=== PATIENT | female | born 1940 | race Caucasian/White ===

== ENCOUNTER → 2016-08-04 | Outpatient (CLI) | payer MEDICARE, BC, OTHER ==
[~2016-08-04] MED LIST: ALLO100T PO; ASPI81TA85 PO; CALCTAB PO; CELL500T PO; DRIS50002 PO; FLEEENE4 PR; LIAL1.2T PO; LIPI20TA PO; LISI-542 PO; MAGN400C PO; MIRA3350 PO; MULTCAP PO; PLAV75TA38 PO; SENO8.6T2 PO; TRAZ100T4 PO; TYLE325T5 PO; VICO7.5T11 PO; VICODIN PO; VIST25CA PO; ZYLO300T4 PO; [UNRECOGNIZED DRUG - CODE] IV
--- NOTE | 2016-08-04 13:40 | REP ---
DIGITAL DIAGNOSTIC UNILATERAL RIGHT BREAST MAMMOGRAM AND FOCUSED RIGHT BREAST SONOGRAPHY: HISTORY: 6-month followup abnormalities on the right side. History of trauma to the breast. Comparison sonography and mammography is from January 09, 2016 and January 02 2016. MAMMOGRAPHIC FINDINGS: The two nodular opacities seen on January 01 and January 09, 2016 prior mammography has resolved. There is a needle biopsy marker clip again noted projecting in the upper outer quadrant on the right. Scattered fibroglandular elements are seen. No neodensity is seen. No spiculation architectural distortion or microcalcification is seen SONOGRAPHIC FINDINGS: The right breast is re-examined sonographically from 9 o'clock position to 1 o'clock position. A few prominent ducts are seen. No suspicious sonographic finding is observed. No cyst or mass is observed. IMPRESSION: BIRADS category 2 benign right breast imaging. Repeat bilateral screening mammography recommended in January 2017. BI-RADS/ACR category 2 mammogram. Benign finding(s). Routine annual screening mammography (for women over age 40). This mammogram was interpreted with the aid of an FDA-approved computer-aided detection system. The patient states she/he had a clinical breast exam in 6 months ago. The patient letter being requested is M2. Signed by Bogdan Epps MD 08/04/2016 03:31 P
== END ==
LOC: M RAD 09:54
PROVIDERS: ATTEND Family Medicine
DX: R92.1 Mammographic calcification found on diagnostic imaging of breast (principal); Z98.890 Other specified postprocedural states
CPT/HCPCS: 76642; G0206

== ENCOUNTER → 2016-08-29 | Outpatient (REF) | payer MEDICARE, OTHER ==
[2016-08-29 11:32] LABS: MEAN CORPUSCULAR HEMOGLOBIN 33.5 pg (27.0-33.0); MEAN CORPUSCULAR HGB CONC 32.2 g/dl (32.0-36.5); RED CELL DISTRIBUTION WIDTH 12.7 % (11.5-14.5); WHITE BLOOD COUNT 5.3 K/mm3 (4.0-10.0)
[2016-08-29 11:52] LABS: EOSINOPHILS 3 % (0-5)
[2016-08-29 11:55] LABS: PLATELET CLUMPS MODERATE AMT
[2016-08-29 12:26] LABS: ALBUMIN/GLOBULIN RATIO 1.48 (1.00-1.93); BILIRUBIN,TOTAL 0.8 MG/DL (0.2-1.0); CALCIUM LEVEL 9.9 MG/DL (8.8-10.2); CREATININE FOR GFR 1.57 MG/DL (0.55-1.02); FREE T4 0.97 NG/DL (0.76-1.46); GLOMERULAR FILTRATION RATE 34.1 (>39); MAGNESIUM LEVEL 1.8 MG/DL (1.8-2.4); POTASSIUM SERUM 3.6 MEQ/L (3.5-5.1); TOTAL PROTEIN 6.7 GM/DL (6.4-8.2); URIC ACID 5.3 MG/DL (2.6-6.0)
== END | disposition home or self-care (01) ==
LOC: M SFHCPLAZ 09:23
PROVIDERS: ATTEND Family Medicine
DX: N18.3 Chronic kidney disease, stage 3 (moderate) (principal); E78.5 Hyperlipidemia, unspecified

== ENCOUNTER → 2017-01-15 | Outpatient (REF) | payer MEDICARE, BC, OTHER ==
[~2017-01-15] MED LIST changes: +PLAV1TAB2 PO; -PLAV75TA38 PO; -SENO8.6T2 PO; +SENO8.6T5 PO; +TRAZ-136 PO; -TRAZ100T4 PO
[2017-01-15 12:43] LABS: CHOLESTEROL LEVEL 140 MG/DL (<200); FREE T4 1.16 NG/DL (0.76-1.46); TRIGLYCERIDES LEVEL 172 MG/DL (<150)
== END ==
LOC: M SFHCPLAZ 08:28
PROVIDERS: ATTEND Family Medicine
DX: E78.5 Hyperlipidemia, unspecified (principal); R73.01 Impaired fasting glucose; E55.9 Vitamin D deficiency, unspecified
CPT/HCPCS: 36415; 80061; 82306; 82550; 83036; 83970; 84439; 84443; 86140; G0463

== ENCOUNTER → 2017-05-15 | Outpatient (REF) | payer MEDICARE, OTHER ==
[2017-05-15 17:50] LABS: ALBUMIN 3.8 GM/DL (3.2-5.2); ALBUMIN/GLOBULIN RATIO 1.15 (1.00-1.93); BILIRUBIN,TOTAL 0.7 MG/DL (0.2-1.0); CALCIUM LEVEL 10.2 MG/DL (8.8-10.2); CREATININE FOR GFR 1.75 MG/DL (0.55-1.02); GLOMERULAR FILTRATION RATE 30.1 (>39); POTASSIUM SERUM 3.3 MEQ/L (3.5-5.1); TOTAL PROTEIN 7.1 GM/DL (6.4-8.2)
[2017-05-19 10:15] LABS: PRETREATED FOLATE FOR RBCFOL > 24.0 NG/ML
== END ==
LOC: M SFHCPLAZ 12:19
PROVIDERS: ATTEND Family Medicine
DX: N18.3 Chronic kidney disease, stage 3 (moderate) (principal); R73.01 Impaired fasting glucose; I50.30 Unspecified diastolic (congestive) heart failure; Z23 Encounter for immunization
CPT/HCPCS: 36415; 80053; 82306; 82607; 82747; 83036; 83735; 83880; 83970; 90662; G0463

== ENCOUNTER → 2017-09-21 | Outpatient (REF) | payer MEDICARE, OTHER ==
[2017-09-21 11:17] LABS: BASO % 0.4 % (0.0-1.0); EOS # 0.1 10^3/uL (0.0-0.50); EOS % 1.6 % (0.0-3.0); HEMATOCRIT 41.3 % (36.0-47.0); HEMOGLOBIN 12.8 g/dl (12.0-16.0); IMMATURE GRANULOCYTE % 0.3 % (0-3.0); LYMPH # 1.1 10^3/uL (1.5-4.5); LYMPH % 14.9 % (24.0-44.0); MEAN CORPUSCULAR HEMOGLOBIN 31.2 pg (27.0-33.0); MEAN CORPUSCULAR VOLUME 100.7 fl (80.0-96.0); MONO # 0.5 10^3/uL (0.0-0.8); MONO % 6.2 % (0.0-5.0); NEUTROPHILS # 5.7 10^3/uL (1.8-7.7); NEUTROPHILS % 76.6 % (36.0-66.0); PLATELET COUNT, AUTOMATED 151 10^3/uL (150-450); WHITE BLOOD COUNT 7.4 10^3/uL (4.0-10.0)
[2017-09-21 11:41] LABS: ALBUMIN 3.9 GM/DL (3.2-5.2); ALBUMIN/GLOBULIN RATIO 1.08 (1.00-1.93); ALKALINE PHOSPHATASE 95 U/L (45-117); ALT/SGPT 21 U/L (12-78); ANION GAP 5 MEQ/L (8-16); AST/SGOT 22 U/L (7-37); BILIRUBIN,TOTAL 0.6 MG/DL (0.2-1.0); BLOOD UREA NITROGEN 31 MG/DL (7-18); CALCIUM LEVEL 9.4 MG/DL (8.8-10.2); CARBON DIOXIDE LEVEL 39 MEQ/L (21-32); CHLORIDE LEVEL 96 MEQ/L (98-107); CREATININE FOR GFR 1.76 MG/DL (0.55-1.30); FERRITIN 180 NG/ML (8-252); FREE T4 0.92 NG/DL (0.76-1.46); GLOMERULAR FILTRATION RATE 29.8 (>39); GLUCOSE, FASTING 145 MG/DL (70-100); IRON (FE) 48 UG/DL (50-170); MAGNESIUM LEVEL 2.1 MG/DL (1.8-2.4); PERCENT SATURATION 17.5 % (13.2-45.0); POTASSIUM SERUM 3.7 MEQ/L (3.5-5.1); SODIUM LEVEL 140 MEQ/L (136-145); TOTAL IRON BINDING CAPACITY 274 UG/DL (250-450); TOTAL PROTEIN 7.5 GM/DL (6.4-8.2); URIC ACID 5.8 MG/DL (2.6-6.0)
[2017-09-21 12:13] LABS: PTH INTACT 78.4 PG/ML (18.5-88.0)
[2017-09-21 12:20] LABS: TOTAL 25(OH) VITAMIN D 47.5 NG/ML (30.0-100.0)
== END ==
LOC: M SFHCPLAZ 09:06
DX: N18.3 Chronic kidney disease, stage 3 (moderate) (principal); E78.5 Hyperlipidemia, unspecified; E55.9 Vitamin D deficiency, unspecified; M1A.09X0 Idiopathic chronic gout, multiple sites, without tophus (tophi); Z79.899 Other long term (current) drug therapy
CPT/HCPCS: 83550

== ENCOUNTER → 2018-01-19 | Outpatient (REF) | payer MEDICARE, OTHER ==
[2018-01-19 11:15] LABS: BASO % 0.5 % (0.0-1.0); EOS # 0.3 10^3/uL (0.0-0.50); EOS % 4.2 % (0.0-3.0); HEMATOCRIT 41.2 % (36.0-47.0); HEMOGLOBIN 12.7 g/dl (12.0-15.5); IMMATURE GRANULOCYTE % 0.2 % (0-3.0); LYMPH # 1.4 10^3/uL (1.5-4.5); LYMPH % 21.8 % (24.0-44.0); MEAN CORPUSCULAR HEMOGLOBIN 31.1 pg (27.0-33.0); MEAN CORPUSCULAR HGB CONC 30.8 g/dl (32.0-36.5); MEAN CORPUSCULAR VOLUME 100.7 fl (80.0-96.0); MONO # 0.6 10^3/uL (0.0-0.8); MONO % 8.6 % (0.0-5.0); NEUTROPHILS # 4.1 10^3/uL (1.8-7.7); NEUTROPHILS % 64.7 % (36.0-66.0); PLATELET COUNT, AUTOMATED 171 10^3/uL (150-450); RED BLOOD COUNT 4.09 10^6/uL (4.00-5.40); RED CELL DISTRIBUTION WIDTH 16.1 % (11.5-14.5); WHITE BLOOD COUNT 6.4 10^3/uL (4.0-10.0)
[2018-01-19 11:56] LABS: ALBUMIN 3.6 GM/DL (3.2-5.2); ALKALINE PHOSPHATASE 83 U/L (45-117); ALT/SGPT 19 U/L (12-78); ANION GAP 10 MEQ/L (8-16); AST/SGOT 13 U/L (7-37); BILIRUBIN,TOTAL 0.8 MG/DL (0.2-1.0); BLOOD UREA NITROGEN 27 MG/DL (7-18); CALCIUM LEVEL 8.8 MG/DL (8.8-10.2); CARBON DIOXIDE LEVEL 35 MEQ/L (21-32); CHLORIDE LEVEL 96 MEQ/L (98-107); CREATININE FOR GFR 1.96 MG/DL (0.55-1.30); FREE T4 1.03 NG/DL (0.76-1.46); GLOMERULAR FILTRATION RATE 26.3 (>39); GLUCOSE, FASTING 92 MG/DL (70-100); POTASSIUM SERUM 3.7 MEQ/L (3.5-5.1); SODIUM LEVEL 141 MEQ/L (136-145); TOTAL PROTEIN 7.2 GM/DL (6.4-8.2)
[2018-01-20 11:11] LABS: THYROID PEROXIDASE ANTIBODY < 28.0 U/ML (<60.0)
[2018-01-21 11:53] LABS: ALBUMIN 3.84 GM/DL (3.29-5.55); ALBUMIN % 53.4 % (55.8-66.1); ALPHA-1-GLOBULIN % 6.1 % (2.9-4.9); ALPHA-1-GLOBULINS 0.44 GM/DL (0.17-0.41); ALPHA-2-GLOBULINS 1.05 GM/DL (0.42-0.99); ALPHA-2-GLOBULINS % 14.6 % (7.1-11.8); BETA-1-GLOBULINS % 5.6 % (4.7-7.2); BETA-2-GLOBULINS 0.42 GM/DL (0.19-0.55); BETA-2-GLOBULINS % 5.8 % (3.2-6.5); GAMMA GLOBULIN % 14.5 % (11.1-18.8); GAMMA GLOBULINS 1.04 GM/DL (0.65-1.58)
== END ==
LOC: M SFHCCLAY 08:11
DX: N18.3 Chronic kidney disease, stage 3 (moderate) (principal); E03.9 Hypothyroidism, unspecified; D75.89 Other specified diseases of blood and blood-forming organs
CPT/HCPCS: 84165

== ENCOUNTER → 2018-01-26 | Outpatient (REF) | payer MEDICARE, OTHER ==
[2018-01-26 17:14] LABS: C REACTIVE PROTEIN QUANTITATIV 0.96 MG/DL (0.00-0.30)
[2018-01-26 18:07] LABS: ERYTHROCYTE SEDIMENTATION RATE 11 mm/hr (0-30)
[2018-01-27 11:35] LABS: HEPATITIS B SURFACE ANTIGEN NEGATIVE (NEGATIVE)
[2018-01-27 11:52] LABS: HEPATITIS C VIRUS ABY INDEX 0.1 INDEX (<0.8)
[2018-01-28 14:44] LABS: QUANTIFERON GOLD TB Negative (Negative); TB Test (QFT) Antigen 0.06 IU/mL (.); TB Test (QFT) Antigen Minus Ni 0.02 IU/mL (.); TB Test (QFT) Mitogen 7.85 IU/mL (.); TB Test (QFT) Nil 0.04 IU/mL (.)
== END ==
LOC: M SFHCPLAZ 09:45
DX: M06.9 Rheumatoid arthritis, unspecified (principal)
CPT/HCPCS: 87340

== ENCOUNTER → 2018-03-04 | Outpatient (REF) | payer MEDICARE, OTHER ==
[2018-03-04 12:25] LABS: BASO % 0.6 % (0.0-1.0); EOS # 0.2 10^3/uL (0.0-0.50); EOS % 3.2 % (0.0-3.0); HEMATOCRIT 45.1 % (36.0-47.0); HEMOGLOBIN 13.9 g/dl (12.0-15.5); IMMATURE GRANULOCYTE % 0.3 % (0-3.0); LYMPH # 1.6 10^3/uL (1.5-4.5); MEAN CORPUSCULAR HEMOGLOBIN 30.3 pg (27.0-33.0); MEAN CORPUSCULAR HGB CONC 30.8 g/dl (32.0-36.5); MEAN CORPUSCULAR VOLUME 98.5 fl (80.0-96.0); MONO # 0.4 10^3/uL (0.0-0.8); MONO % 6.8 % (0.0-5.0); NEUTROPHILS # 3.9 10^3/uL (1.8-7.7); NEUTROPHILS % 63.1 % (36.0-66.0); PLATELET COUNT, AUTOMATED 103 10^3/uL (150-450); RED BLOOD COUNT 4.58 10^6/uL (4.00-5.40); RED CELL DISTRIBUTION WIDTH 15.2 % (11.5-14.5); RETIC HEMOGLOBIN EQUIVALENT 36.6 pg (24-36); RETICULOCYTE # 47.2 10^9/L (17-77); WHITE BLOOD COUNT 6.2 10^3/uL (4.0-10.0)
[2018-03-04 12:55] LABS: ALBUMIN 3.9 GM/DL (3.2-5.2); ANION GAP 10 MEQ/L (8-16); BLOOD UREA NITROGEN 28 MG/DL (7-18); C REACTIVE PROTEIN QUANTITATIV < 0.30 MG/DL (0.00-0.30); CALCIUM LEVEL 9.5 MG/DL (8.8-10.2); CARBON DIOXIDE LEVEL 28 MEQ/L (21-32); CHLORIDE LEVEL 102 MEQ/L (98-107); CREATININE FOR GFR 1.69 MG/DL (0.55-1.30); FREE T4 0.94 NG/DL (0.76-1.46); GLOMERULAR FILTRATION RATE 31.2 (>39); GLUCOSE, FASTING 89 MG/DL (70-100); MAGNESIUM LEVEL 1.9 MG/DL (1.8-2.4); PHOSPHORUS LEVEL 3.4 MG/DL (2.5-4.9); SODIUM LEVEL 140 MEQ/L (136-145)
[2018-03-04 13:19] LABS: POTASSIUM SERUM 5.2 MEQ/L (3.5-5.1)
[2018-03-04 13:44] LABS: ERYTHROCYTE SEDIMENTATION RATE 7 mm/hr (0-30)
== END ==
LOC: M SFHCCLAY 09:46
DX: M06.9 Rheumatoid arthritis, unspecified (principal)
CPT/HCPCS: 83735

== ENCOUNTER → 2018-04-07 | Outpatient (REF) | payer MEDICARE, OTHER ==
[2018-04-07 11:42] LABS: BASO % 0.3 % (0.0-1.0); EOS # 0.2 10^3/uL (0.0-0.50); EOS % 2.6 % (0.0-3.0); HEMATOCRIT 43.4 % (36.0-47.0); HEMOGLOBIN 13.4 g/dl (12.0-15.5); IMMATURE GRANULOCYTE % 0.3 % (0-3.0); LYMPH # 2.3 10^3/uL (1.5-4.5); LYMPH % 30.8 % (24.0-44.0); MEAN CORPUSCULAR HEMOGLOBIN 31.5 pg (27.0-33.0); MEAN CORPUSCULAR HGB CONC 30.9 g/dl (32.0-36.5); MEAN CORPUSCULAR VOLUME 101.9 fl (80.0-96.0); MONO # 0.6 10^3/uL (0.0-0.8); MONO % 7.5 % (0.0-5.0); NEUTROPHILS # 4.3 10^3/uL (1.8-7.7); NEUTROPHILS % 58.5 % (36.0-66.0); PLATELET COUNT, AUTOMATED 145 10^3/uL (150-450); RED BLOOD COUNT 4.26 10^6/uL (4.00-5.40); RED CELL DISTRIBUTION WIDTH 15.8 % (11.5-14.5); WHITE BLOOD COUNT 7.4 10^3/uL (4.0-10.0)
[2018-04-07 12:03] LABS: ALBUMIN 3.8 GM/DL (3.2-5.2); ANION GAP 6 MEQ/L (8-16); BLOOD UREA NITROGEN 29 MG/DL (7-18); C REACTIVE PROTEIN QUANTITATIV < 0.30 MG/DL (0.00-0.30); CALCIUM LEVEL 9.4 MG/DL (8.8-10.2); CARBON DIOXIDE LEVEL 34 MEQ/L (21-32); CHLORIDE LEVEL 99 MEQ/L (98-107); CHOLESTEROL LEVEL 166 MG/DL (<200); CHOLESTEROL RISK RATIO 3.608 (<5); CREATININE FOR GFR 1.81 MG/DL (0.55-1.30); GLOMERULAR FILTRATION RATE 28.9 (>39); GLUCOSE, FASTING 81 MG/DL (70-100); HDL CHOLESTEROL 46 MG/DL (>40); LDL CHOLESTEROL 82 MG/DL (<100); MAGNESIUM LEVEL 2.3 MG/DL (1.8-2.4); NON-HDL-C 120 MG/DL; PHOSPHORUS LEVEL 3.9 MG/DL (2.5-4.9); POTASSIUM SERUM 4.2 MEQ/L (3.5-5.1); SODIUM LEVEL 139 MEQ/L (136-145); TRIGLYCERIDES LEVEL 188 MG/DL (<150)
[2018-04-07 12:10] LABS: ERYTHROCYTE SEDIMENTATION RATE 9 mm/hr (0-30)
[2018-04-07 16:45] LABS: ESTIMATED AVERAGE GLUCOSE 117 MG/DL (60-110); HEMOGLOBIN A1c 5.7 %
== END ==
LOC: M SFHCCLAY 09:31
DX: D69.6 Thrombocytopenia, unspecified (principal); E78.5 Hyperlipidemia, unspecified; R73.01 Impaired fasting glucose; I50.30 Unspecified diastolic (congestive) heart failure
CPT/HCPCS: 83735

== ENCOUNTER → 2018-06-07 | Outpatient (REF) | payer MEDICARE, OTHER ==
[2018-06-07 11:52] LABS: BASO % 0.1 % (0.0-1.0); EOS # 0.1 10^3/uL (0.0-0.50); EOS % 1.6 % (0.0-3.0); HEMATOCRIT 44.2 % (36.0-47.0); HEMOGLOBIN 13.4 g/dl (12.0-15.5); IMMATURE GRANULOCYTE % 0.3 % (0-3.0); LYMPH # 1.6 10^3/uL (1.5-4.5); LYMPH % 22.5 % (24.0-44.0); MEAN CORPUSCULAR HEMOGLOBIN 32.7 pg (27.0-33.0); MEAN CORPUSCULAR HGB CONC 30.3 g/dl (32.0-36.5); MEAN CORPUSCULAR VOLUME 107.8 fl (80.0-96.0); MONO # 0.6 10^3/uL (0.0-0.8); MONO % 7.8 % (0.0-5.0); NEUTROPHILS # 4.8 10^3/uL (1.8-7.7); NEUTROPHILS % 67.7 % (36.0-66.0); PLATELET COUNT, AUTOMATED 148 10^3/uL (150-450); RED CELL DISTRIBUTION WIDTH 13.9 % (11.5-14.5); WHITE BLOOD COUNT 7.1 10^3/uL (4.0-10.0)
[2018-06-07 12:38] LABS: ALBUMIN 3.8 GM/DL (3.2-5.2); ALBUMIN/GLOBULIN RATIO 1.19 (1.00-1.93); ALKALINE PHOSPHATASE 84 U/L (45-117); ALT/SGPT 32 U/L (12-78); ANION GAP 10 MEQ/L (8-16); AST/SGOT 27 U/L (7-37); BILIRUBIN,TOTAL 0.8 MG/DL (0.2-1.0); BLOOD UREA NITROGEN 34 MG/DL (7-18); C REACTIVE PROTEIN QUANTITATIV < 0.30 MG/DL (0.00-0.30); CALCIUM LEVEL 9.8 MG/DL (8.8-10.2); CARBON DIOXIDE LEVEL 33 MEQ/L (21-32); CHLORIDE LEVEL 95 MEQ/L (98-107); CREATININE FOR GFR 1.88 MG/DL (0.55-1.30); FREE T4 0.97 NG/DL (0.76-1.46); GLOMERULAR FILTRATION RATE 27.6 (>39); GLUCOSE, FASTING 95 MG/DL (70-100); POTASSIUM SERUM 3.7 MEQ/L (3.5-5.1); SODIUM LEVEL 138 MEQ/L (136-145)
== END ==
LOC: M SFHCCLAY 09:08
DX: D75.89 Other specified diseases of blood and blood-forming organs (principal); N18.3 Chronic kidney disease, stage 3 (moderate); M06.9 Rheumatoid arthritis, unspecified; E03.9 Hypothyroidism, unspecified; M1A.09X0 Idiopathic chronic gout, multiple sites, without tophus (tophi)
CPT/HCPCS: 84443

== ENCOUNTER 2018-09-14 09:27 | Inpatient (IN) | payer MEDICARE, BC, OTHER ==
[~2018-09-14] VITALS: Ht 157.5 cm; Wt 73.0 kg
[~2018-09-14 09:27] MED LIST changes: -DRIS50002 PO; +DRIS50003 PO; -TRAZ-136 PO; +TRAZ-163 PO; -ZYLO300T4 PO; +ZYLO300T6 PO
[2018-09-14] MEDS ORDERED: OXYC1TAB23 PO (09:46)
[2018-09-14] MEDS ORDERED: FURO40TA2 PO (09:46)
--- NOTE | 2018-09-14 10:15 | REP ---
Clinical: Altered mental status. Technique: Portable chest x-ray. Comparison: 12/01/2014. Findings: Mediastinum and cardiac silhouette are within normal limits and stable. Lung hanley demonstrate chronic changes. Trace basilar atelectasis cannot be excluded. No definite effusion. No pneumothorax. Skeletal structures demonstrate age-related degenerative changes. Surgical clips overlie the neck and right lung apex. Impression: Chronic changes. Cannot exclude bibasilar atelectasis versus chronic change. Electronically Signed by Lucio Fagan MD 09/14/2018 10:06 A
[2018-09-14 11:52] LABS: BASO % 0.6 % (0.0-1.0); EOS # 0.1 10^3/uL (0.0-0.50); EOS % 1.7 % (0.0-3.0); HEMATOCRIT 39.2 % (36.0-47.0); HEMOGLOBIN 11.9 g/dl (12.0-15.5); LYMPH % 21.3 % (24.0-44.0); MEAN CORPUSCULAR HEMOGLOBIN 32.7 pg (27.0-33.0); MEAN CORPUSCULAR HGB CONC 30.4 g/dl (32.0-36.5); MEAN CORPUSCULAR VOLUME 107.7 fl (80.0-96.0); MONO # 0.4 10^3/uL (0.0-0.8); MONO % 7.7 % (0.0-5.0); NEUTROPHILS # 3.3 10^3/uL (1.8-7.7); NEUTROPHILS % 68.3 % (36.0-66.0); PLATELET COUNT, AUTOMATED 164 10^3/uL (150-450); RED BLOOD COUNT 3.64 10^6/uL (4.00-5.40); WHITE BLOOD COUNT 4.8 10^3/uL (4.0-10.0)
[2018-09-14 12:30] LABS: PTH INTACT 61.7 PG/ML (18.5-88.0); TOTAL 25(OH) VITAMIN D 83.8 NG/ML (30.0-100.0)
[2018-09-14 12:34] LABS: ALBUMIN 4.1 GM/DL (3.2-5.2); ALT/SGPT 44 U/L (12-78); BILIRUBIN,DIRECT 0.2 MG/DL (0.0-0.2); BILIRUBIN,TOTAL 0.6 MG/DL (0.2-1.0); BLOOD UREA NITROGEN 33 MG/DL (7-18); CALCIUM LEVEL 9.5 MG/DL (8.8-10.2); CARBON DIOXIDE LEVEL 30 MEQ/L (21-32); CHLORIDE LEVEL 98 MEQ/L (98-107); CPK CREATINE PHOSPHOKINASE 81 U/L (26-192); CREATININE FOR GFR 2.11 MG/DL (0.55-1.30); GLOMERULAR FILTRATION RATE 24.1 (>39); GLUCOSE, FASTING 98 MG/DL (70-100); MB/CK RELATIVE INDEX 2.22 (< OR =4); POTASSIUM SERUM 5.6 MEQ/L (3.5-5.1); SODIUM LEVEL 135 MEQ/L (136-145); TOTAL PROTEIN 7.2 GM/DL (6.4-8.2); TROPONIN I < 0.02 NG/ML (< 0.10)
[2018-09-14] MEDS ORDERED: PERCOCET 5MG/325MG TAB PO ONE (12:45)
[2018-09-14 13:23] LABS: OSMOLALITY SERUM 301 MOSM/KG (280-301)
[2018-09-14 13:53] LABS: C REACTIVE PROTEIN QUANTITATIV < 0.30 MG/DL (0.00-0.30)
[2018-09-14 15:02] LABS: ERYTHROCYTE SEDIMENTATION RATE 15 mm/hr (0-30)
[2018-09-14 16:30] LABS: POTASSIUM SERUM 5.5 MEQ/L (3.5-5.1)
[2018-09-14] MEDS ORDERED: BUSP5TA PO (16:48)
[2018-09-14] MEDS ORDERED: VITMTA PO (16:48)
[2018-09-14] MEDS ORDERED: POTA1TAB14 PO (16:48)
[2018-09-14] MEDS ORDERED: PRED1TABL PO (16:48)
[2018-09-14] MEDS ORDERED: XELJ5TAB PO (16:48)
[2018-09-14] MEDS ORDERED: DRIS50003 PO (16:48)
[2018-09-14] MEDS ORDERED: LEVO50TA5 PO (16:48)
[2018-09-14] MEDS ORDERED: ZYLO300T6 PO (16:50)
[2018-09-14] MEDS ORDERED: ATOR40TA75 PO (16:50)
[2018-09-14 17:48] LABS: INFLUENZA A AMPLIFICATION NEGATIVE (NEGATIVE); INFLUENZA B AMPLIFICATION NEGATIVE (NEGATIVE)
[2018-09-14] MEDS ORDERED: fentaNYL 100 MCG/2 ML INJECTION (J3010) IV ONE (18:00)
--- NOTE | 2018-09-14 19:22 | HPE ---
DATE OF ADMISSION: 09/14/2018 This is a 78-year-old female with a past medical history of coronary artery disease status-post myocardial infarction, history of peripheral artery disease status-post right carotid endarterectomy in 1998 and left in 2001, history of rheumatoid arthritis, gout who presents to the emergency room with chief complaint of immobility. Apparently the patient has both a wheelchair and a rolling walker and is able to perform her activities of daily living by mobilizing from the wheelchair to the walker, however in the last 3 weeks she has gotten progressively weak in both her upper and lower extremities. Not so much pain in her joints but just generalized weakness. It got to the point where she needed two men to assist her in mobilizing and transferring yesterday evening so she came to the ER for evaluation. In the ER she had multiple tests done all blood work that came back benign. Her urinalysis was also negative. She has normal vitals and a chest x-ray did not show any evidence of consolidation or effusion. Patient at this time is doing well at rest. She is a bit frustrated because she has an 87-year-old who she has been to for 60 years that she wants to take of and she is not able to at this time. She will be admitted for further management. PAST MEDICAL HISTORY: Coronary artery disease status-post ND, history of peripheral artery disease status-post carotid endarterectomy in 1998 on the right and left in 2001, chronic kidney disease stage 3B, baseline creatinine is 1.8 to 1.9. History of hypertension, hyperlipidemia, rheumatoid arthritis, gout, history of ulcerative colitis. She has also had a history of bilateral hip replacements, hysterectomy with bilateral salpingo-oophorectomy. ALLERGIES: She has drug allergies to Penicillin and Codeine and Sulfa drugs. FAMILY HISTORY: Noncontributory. SOCIAL HISTORY: Patient has a 25-pack year history, quit approximately 9 years ago. She denies alcohol or illicit drugs. MEDICATIONS AT HOME: Allopurinol 150 mg orally daily, atorvastatin 40 mg orally daily, buspirone 5 mg orally three times a day, calcium and vitamin D 500/400 1 tab orally daily, Plavix 75 mg orally daily, Lasix 40 mg orally daily, Synthroid 50 mcg orally daily, magnesium oxide 400 mg orally twice daily, mesalamine 4.8 grams orally daily, multivitamin 1 tab orally daily, potassium chloride 20 mEq orally twice a day, prednisone 1 mg daily as needed, tofacitinib 5 mg orally daily, trazodone 200 mg orally at bedtime, vitamin D 50,000 units orally weekly. REVIEW OF SYSTEMS: Negative for all 10 major systems except what was mentioned in the history of present illness. VITALS: Blood pressure 135/59, heart rate 99 and regular, respiratory rate 22, oxygen saturation is 96% on 2 liters nasal cannula. Head is atraumatic normocephalic. Neck is supple and there is no JVD. Lungs are clear to auscultation. S1 and S2 are audible. No murmurs appreciated. Abdomen is soft and positive bowel sounds. No pedal edema. Skin is intact. Neurologic examination, patient is +3 strength upper extremities, +2 strength lower extremity. She is awake, alert and oriented times 3. LABS: Urinalysis is negative for UTI. Sodium 135, potassium 5.6, chloride 98, CO2 30, BUN 33, creatine 2.11, glucose 98, lactic acid 1.7, magnesium 2, troponin less than 0.02, CK 81, hydroxy vitamin D level is 83.8, TSH 1.4, intact PTH is 61.7, WBC 4.8, hemoglobin 11.9, hematocrit 39.2, platelets 164,000. IMPRESSION: 1. Debility. PLAN: Patient is to be admitted to the med-surg floor. We will continue all her preadmission medications and get PT and OT to evaluate her. She will likely need subacute rehabilitation placement. We will follow PT and OT recommendations. Otherwise we will continuing following her care on the med-surg floor.
[2018-09-14 20:20] VITALS: BP 141/68
[2018-09-14 22:00] VITALS: BP 140/72
[2018-09-14] MEDS ORDERED: traZODone 100 MG TAB PO PRN (22:15)
[2018-09-14] MEDS ORDERED: PERCOCET 5MG/325MG TAB PO PRN (22:15)
[2018-09-14] MEDS: HEPARIN SOD (PORCINE) 5000 UNITS/ML VIAL SC SCH (23:32)
[2018-09-15] MEDS: HEPARIN SOD (PORCINE) 5000 UNITS/ML VIAL SC SCH ×2 (05:40→15:24)
[2018-09-15 06:00] VITALS: BP 132/70
[2018-09-15] MEDS ORDERED: LEVOTHYROXINE 50MCG TABLET (0.05MG) PO SCH (06:00)
[2018-09-15 06:04] LABS: CALCIUM LEVEL 9.3 MG/DL (8.8-10.2); CREATININE FOR GFR 2.08 MG/DL (0.55-1.30); GLOMERULAR FILTRATION RATE 24.5 (>39); POTASSIUM SERUM 4.6 MEQ/L (3.5-5.1)
[2018-09-15] MEDS ORDERED: predniSONE 1 MG TAB PO PRN (07:45)
[2018-09-15 09:00] LABS: BASO % 0.6 % (0.0-1.0); EOS # 0.2 10^3/uL (0.0-0.50); EOS % 3.4 % (0.0-3.0); HEMATOCRIT 36.7 % (36.0-47.0); HEMOGLOBIN 11.2 g/dl (12.0-15.5); LYMPH # 1.4 10^3/uL (1.5-4.5); LYMPH % 26.1 % (24.0-44.0); MEAN CORPUSCULAR HEMOGLOBIN 32.7 pg (27.0-33.0); MEAN CORPUSCULAR HGB CONC 30.5 g/dl (32.0-36.5); MONO # 0.5 10^3/uL (0.0-0.8); MONO % 10.2 % (0.0-5.0); NEUTROPHILS # 3.1 10^3/uL (1.8-7.7); NEUTROPHILS % 58.8 % (36.0-66.0); PLATELET COUNT, AUTOMATED 154 10^3/uL (150-450); RED BLOOD COUNT 3.43 10^6/uL (4.00-5.40); WHITE BLOOD COUNT 5.3 10^3/uL (4.0-10.0)
[2018-09-15] MEDS ORDERED: CLOPIDOGREL 75 MG TAB PO SCH (09:00)
[2018-09-15] MEDS ORDERED: MULTIVITAMINS/MINERALS THERAP 1 TAB PO SCH (09:00)
[2018-09-15] MEDS ORDERED: ATORVASTATIN 20 MG TAB PO SCH (09:00)
[2018-09-15] MEDS ORDERED: ALLOPURINOL 300 MG TAB PO SCH (09:00)
[2018-09-15] MEDS: PERCOCET 5MG/325MG TAB PO PRN ×2 (09:05→15:26)
[2018-09-15] MEDS: busPIRone 5 MG TAB PO SCH ×2 (09:05→15:24)
--- NOTE | 2018-09-15 13:51 | DS.PDOC ---
Discharge Summary General Date of Admission 09/14/2018 Date of Discharge 09/15/2018 Discharge Summary PROCEDURES PERFORMED DURING STAY: [None]. ADMITTING DIAGNOSES / DISCHARGE DIAGNOSES: Weakness and difficulty with ADLs HTN CAD (Hx of CA) PAD s/p R carotid endarterectomy (1998) & L carotid endarterectomy (2000) DLP CKD3 (Baseline Cr 1.8 to 1.9) - approaching baseline Hx of Ulcerative colitis Rheumatoid arthritis Gout Macrocytic anemia Hyponatremia (mild) s/p Hyperkalemia DVT prophylaxis COMPLICATIONS/CHIEF COMPLAINT: Weakens / Falls HISTORY OF PRESENT ILLNESS / HOSPITAL COURSE: Patient is a 78-year-old female with a PMHx of HTN, CAD (Hx of CA), PAD s/p R carotid endarterectomy (1998) & L carotid endarterectomy (2000), DLP, CKD3 (Baseline Cr 1.8 to 1.9), hx of Ulcerative colitis, Rheumatoid arthritis, Gout, who presented to the ER with complaints of mobility and difficulty with activities of daily living. Patient notes that she uses a walker at baseline. However, has been unable to progress recently. Patient was admitted to the hospital service for further evaluation and treatment. CXR 09/14: Chronic changes. Cannot exclude bibasilar atelectasis versus chronic change. Physical therapy and occupational therapy were ordered and they recommended continued rehabilitation. She was accepted at acute rehabilitation unit and will transferred there for continued care. DISCHARGE MEDICATIONS: Please see below. ALLERGIES: Please see below. PHYSICAL EXAMINATION ON DISCHARGE: Vitals (See below) General: Lying in bed, no acute distress, comfortable, AAOx3 HEENT: NC, AT CVS: RRR, +S1S2 Lungs: Fair air entry b/l, -w/r/r Abdomen: Soft, ND, NT Extremities: - Edema, - Calf tenderness LABORATORY DATA: Please see below. ACTIVITY: [As tolerated]. DISCHARGE PLAN: Transfer to ARU Continued physical and occupational therapy DISPOSITION: Transfer to ARU DISCHARGE CONDITION: [Stable]. TIME SPENT ON DISCHARGE: Greater than [35] minutes. Vital Signs/I&Os Vital Signs Date Time Temp Pulse Resp B/P (MAP) Pulse Ox O2 Delivery O2 Flow Rate FiO2 09/15/18 09:35 18 09/15/18 06:00 98.1 84 132/70 (90) 95 2.0 09/14/18 18:37 Nasal Cannula I&O- Last 24 Hours up to 6 AM 09/15/18 06:00 Intake Total 480 ml Output Total 0 ml Balance 480 ml Laboratory Data Labs 24H Laboratory Tests 2 09/14/18 13:54: Urine Color YELLOW, Urine Appearance CLEAR, Urine pH 5.0, Urine Specific [place] 1.008, Urine Protein NEGATIVE, Urine Glucose (UA) NEGATIVE, Urine Ketones NEGATIVE, Urine Blood 1+H, Urine Nitrite NEGATIVE, Urine Bilirubin NEGATIVE, Urine Urobilinogen 0.2, Urine Leukocyte Esterase 1+H, Urine WBC (Auto) 4H, Urine RBC (Auto) 2, Urine Hyaline Casts (Auto) 0, Urine Bacteria (Auto) 1+H, Urine Squamous Epithelial Cells 0, Urine Mucus (Auto) SMALL, Urine Sperm (Auto) 09/14/18 17:14: Influenza Type A (RT-PCR) NEGATIVE, Influenza Type B (RT-PCR) NEGATIVE 09/15/18 05:24: Immature Granulocyte % (Auto) 0.9, White Blood Count 5.3, Red Blood Count 3.43L, Hemoglobin 11.2L, Hematocrit 36.7, Mean Corpuscular Volume 107.0H, Mean Corpuscular Hemoglobin 32.7, Mean Corpuscular Hemoglobin Concent 30.5L, Red Cell Distribution Width 14.4, Platelet Count 154, Neutrophils (%) (Auto) 58.8, Lymphocytes (%) (Auto) 26.1, Monocytes (%) (Auto) 10.2H, Eosinophils (%) (Auto) 3.4H, Basophils (%) (Auto) 0.6, Neutrophils # (Auto) 3.1, Lymphocytes # (Auto) 1.4L, Monocytes # (Auto) 0.5, Eosinophils # (Auto) 0.2, Basophils # (Auto) 0.0, Nucleated Red Blood Cells % (auto) 0.0 09/15/18 05:27: Anion Gap 7L, Glomerular Filtration Rate 24.5L, Blood Urea Nitrogen 31H, Creati nine 2.08H, Sodium Level 133L, Potassium Level 4.6, Chloride Level 97L, Carbon Dioxide Level 29, Calcium Level 9.3, Magnesium Level 2.0 CBC/BMP Laboratory Tests 09/15/18 05:24 Red Blood Count 3.43 L, Mean Corpuscular Volume 107.0 H, Mean Corpuscular Hemoglobin 32.7, Mean Corpuscular Hemoglobin Concent 30.5 L, Red Cell Distribution Width 14.4, Neutrophils (%) (Auto) 58.8, Lymphocytes (%) (Auto) 26.1, Monocytes (%) (Auto) 10.2 H, Eosinophils (%) (Auto) 3.4 H, Basophils (%) (Auto) 0.6, Neutrophils # (Auto) 3.1, Lymphocytes # (Auto) 1.4 L, Monocytes # (Auto) 0.5, Eosinophils # (Auto) 0.2, Basophils # (Auto) 0.0 09/15/18 05:27 Calcium Level 9.3 Microbiology Microbiology 09/14/18 Blood Culture - Preliminary, Resulted No growth after 24 hours . All specim... 09/14/18 Blood Culture - Preliminary, Resulted No growth after 24 hours . All specim... 09/14/18 Urine Culture - Final, Complete Discharge Medications Scheduled Allopurinol (Zyloprim) 300 Mg Tab, 150 MG PO DAILY, (Reported) Atorvastatin Calcium (Atorvastatin Calcium) 40 Mg Tab, 40 MG PO DAILY, (Reported) Buspirone HCl (Buspirone HCl) 5 Mg Tab, 5 MG PO TID, (Reported) Calcium/Vitamin D (Calcium 500+D High Potenc 500-400 mg-Unit) 1 Tab Tab, 1 TAB PO DAILY, (Reported) Clopidogrel Bisulfate (Plavix) 75 Mg Tab, 75 MG PO DAILY, (Reported) Furosemide (Furosemide) 40 Mg Tab, 40 MG PO DAILY, (Reported) Levothyroxine Sodium (Synthroid) 50 Mcg Tab, 50 MCG PO DAILY, (Reported) Magnesium Oxide (Magnesium Oxide) 400 Mg Cap, 400 MG PO BID, (Reported) Mesalamine (Lialda) 1.2 Gm Tab, 4.8 GM PO DAILY, (Reported) Multivitamins *[facility] STOCKED* (Thera M Plus *[facility] STOCKED*) 1 Tab Tab, 1 TAB PO DAILY, (Reported) Potassium Chloride (Potassium Chloride ER) 20 Meq Tab, 20 MEQ PO TID, (Reported) Tofacitinib Citrate (Xeljanz) 5 Mg Tab, 5 MG PO DAILY, (Reported) Trazodone HCl (Trazodone HCl) 100 Mg Tab, 200 MG PO QHS, (Reported) Vitamin D (Drisdol) 50,000 Unit Cap, 50,000 UNIT PO QWEEK, (Reported) SUNDAYS Scheduled PRN Oxycodone/Acetaminophen (Oxycodone/Acetaminophen 5-325 mg) 1 Tab Tab, 2 TAB PO QID PRN for PAIN, (Reported) Prednisone (Prednisone) 1 Mg Tab, 1 MG PO DAILY PRN for ARTHRITIS FLARE, (Reported) Allergies Coded Allergies: Clindamycin (Verified Allergy, Intermediate, rash, 09/14/18) Codeine (Verified Allergy, Mild, RASH, 09/14/18) Morphine (Verified Allergy, Mild, rash, 09/14/18) rash Penicillins (Verified Allergy, Mild, RASH, 09/14/18) TRELL BUITRAGO MD Sep 15, 2018 13:51
[2018-09-15 14:00] VITALS: BP 129/64
--- NOTE | 2018-09-15 20:27 | ECGEPIP ---
Stationary ECG Study [facility] - ED Test Date: 2018-09-14 Pat Name: LILIBETH MELLO Department: Room: - Gender: F Shank Scourer: TC : 1940 Requested By: Cindy Polanco Order Number: [id number] Reading MD: Cindy Polanco Measurements Intervals [place] Rate: 78 P: -12 [place]: 156 QRS: 75 QRSD: 91 T: 51 QT: 342 QTc: 390 Interpretive Statements SINUS RHYTHM LOW QRS VOLTAGE IN PRECORDIAL LEADS POSSIBLE RIGHT VENTRICULAR CONDUCTION DELAY NSTTW ABNORMALITY PRWP DECREASED RATE 09/19/14 Electronically Signed On 09-15-2018 20:27:46 EST by Cindy Polanco
== END 2018-09-15 16:15 | DRG 948 ==
LOC: EDBD 09:27 → EDSEX 09:27 → M ED 09:27 → M ED INP 18:07 → M MSPAV 20:18 → OBSVTOIN 09-15 10:45
PROVIDERS: ADMIT Internal Medicine; ATTEND Internal Medicine
DX: R53.81 Other malaise (principal); E87.1 Hypo-osmolality and hyponatremia; I12.9 Hypertensive chronic kidney disease with stage 1 through stage 4 chronic kidney disease, or unspecified chronic kidney disease; I25.10 Atherosclerotic heart disease of native coronary artery without angina pectoris; I25.2 Old myocardial infarction; N18.3 Chronic kidney disease, stage 3 (moderate); E87.5 Hyperkalemia; M10.9 Gout, unspecified; M06.9 Rheumatoid arthritis, unspecified; D53.9 Nutritional anemia, unspecified; Z79.899 Other long term (current) drug therapy; Z88.5 Allergy status to narcotic agent; Z88.8 Allergy status to other drugs, medicaments and biological substances; I73.9 Peripheral vascular disease, unspecified; E78.5 Hyperlipidemia, unspecified; Z96.641 Presence of right artificial hip joint; Z96.642 Presence of left artificial hip joint; Z88.2 Allergy status to sulfonamides; Z87.891 Personal history of nicotine dependence

== ENCOUNTER 2018-09-15 16:20 | Inpatient (IN) | payer MEDICARE, BC, OTHER ==
[~2018-09-15] VITALS: Ht 154.9 cm; Wt 76.9 kg
[~2018-09-15 16:20] MED LIST changes: +ATOR40TA75 PO; +BUSP5TA PO; +FURO40TA2 PO; +LEVO50TA5 PO; +OXYC1TAB23 PO; +POTA1TAB14 PO; +PRED1TABL PO; +VITMTA PO; +XELJ5TAB PO
[2018-09-15 16:30] VITALS: BP 130/80
[2018-09-15] MEDS ORDERED: ACETAMINOPHEN TAB 650MG DOSE (2X325MG) PO PRN (17:15)
[2018-09-15] MEDS ORDERED: PILL CRUSHER/CUTTER 1 EACH XX PRN (17:30)
[2018-09-15 19:24] LABS: APPEARANCE, URINE CLEAR (CLEAR); BACTERIA, URINE AUTO 1+ (NEGATIVE); BILIRUBIN, URINE AUTO NEGATIVE (NEGATIVE); BLOOD, URINE BLOOD NEGATIVE (NEGATIVE); COLOR, URINE YELLOW (YELLOW); GLUCOSE, URINE (UA) AUTO NEGATIVE (NEGATIVE); KETONE, URINE AUTO NEGATIVE (NEGATIVE); LEUKOCYTE ESTERASE, URINE AUTO TRACE (NEGATIVE); NITRITE, URINE AUTO NEGATIVE (NEGATIVE); PROTEIN, URINE AUTO NEGATIVE (NEGATIVE); RBC, URINE AUTO 2 /HPF (0-3); SPECIFIC GRAVITY URINE AUTO 1.013 (1.002-1.035); SQUAMOUS EPITHELIAL CELL UR AU 1 /HPF (0-6); UROBILINOGEN, URINE AUTO 0.2 mg/dL (0.0-2.0); WBC, URINE AUTO 4 /HPF (0-3)
[2018-09-15 20:00] VITALS: BP 139/62
[2018-09-15] MEDS ORDERED: SIMETHICONE 80 MG CHEW TAB PO PRN (20:15)
[2018-09-15] MEDS ORDERED: PERCOCET 5MG/325MG TAB PO PRN (20:15)
[2018-09-15] MEDS: HEPARIN SOD (PORCINE) 5000 UNITS/ML VIAL SQ SCH (21:10)
[2018-09-15] MEDS: busPIRone 5 MG TAB PO SCH (21:10)
[2018-09-15] MEDS: DOCUSATE SODIUM 100 MG CAP PO SCH (21:11)
[2018-09-15] MEDS: traZODone 100 MG TAB PO SCH (21:11)
[2018-09-15] MEDS: SENNA 8.6 MG TAB (SENOKOT) PO SCH (21:11)
[2018-09-16] MEDS: LEVOTHYROXINE 50MCG TABLET (0.05MG) PO SCH (05:58)
[2018-09-16] MEDS: HEPARIN SOD (PORCINE) 5000 UNITS/ML VIAL SQ SCH ×3 (05:58→20:36)
[2018-09-16 06:00] VITALS: BP 159/77
[2018-09-16 06:51] LABS: BASO % 0.5 % (0.0-1.0); EOS # 0.2 10^3/uL (0.0-0.50); EOS % 3.1 % (0.0-3.0); HEMATOCRIT 36.3 % (36.0-47.0); HEMOGLOBIN 11.6 g/dl (12.0-15.5); LYMPH % 17.6 % (24.0-44.0); MEAN CORPUSCULAR HEMOGLOBIN 33.4 pg (27.0-33.0); MEAN CORPUSCULAR VOLUME 104.6 fl (80.0-96.0); MONO # 0.6 10^3/uL (0.0-0.8); MONO % 10.6 % (0.0-5.0); NEUTROPHILS # 3.8 10^3/uL (1.8-7.7); NEUTROPHILS % 67.8 % (36.0-66.0); PLATELET COUNT, AUTOMATED 156 10^3/uL (150-450); RED BLOOD COUNT 3.47 10^6/uL (4.00-5.40); WHITE BLOOD COUNT 5.6 10^3/uL (4.0-10.0)
[2018-09-16 07:24] LABS: ALBUMIN 3.5 GM/DL (3.2-5.2); BILIRUBIN,TOTAL 0.9 MG/DL (0.2-1.0); CALCIUM LEVEL 9.3 MG/DL (8.8-10.2); CREATININE FOR GFR 1.97 MG/DL (0.55-1.30); GLOMERULAR FILTRATION RATE 26.1 (>39); POTASSIUM SERUM 3.9 MEQ/L (3.5-5.1); TOTAL PROTEIN 6.8 GM/DL (6.4-8.2)
[2018-09-16] MEDS: busPIRone 5 MG TAB PO SCH ×3 (09:05→20:35)
[2018-09-16] MEDS: MULTIVITAMINS/MINERALS THERAP 1 TAB PO SCH (09:05)
[2018-09-16] MEDS: ALLOPURINOL 300 MG TAB PO SCH (09:05)
[2018-09-16] MEDS: ATORVASTATIN 20 MG TAB PO SCH (09:06)
[2018-09-16] MEDS: CLOPIDOGREL 75 MG TAB PO SCH (09:06)
[2018-09-16] MEDS: predniSONE 1 MG TAB PO SCH (09:06)
[2018-09-16] MEDS: DOCUSATE SODIUM 100 MG CAP PO SCH ×2 (09:06→20:35)
[2018-09-16] MEDS: PERCOCET 5MG/325MG TAB PO PRN (10:28)
--- NOTE | 2018-09-16 12:09 | HPEPDOC ---
Digital Content Marketing Manager Note DATE OF ADMISSION: Sep 15, 2018 at 16:20 SOURCE OF ADMISSION INFORMATION: [facility] records and patient CHIEF COMPLAINT: debility HISTORY OF PRESENT ILLNESS: 78F pmh CAD, PAD, bilateral CEA, RA, gout, on home 02 and followed by podiatry for a left digit ulcer who reported feeling weaker and unable to get around her house despite the use of a wheelchair and presented to [facility] ED on 09/14/18. Labs were ordered which did not reveal any ongoing infection, however she did have worsening renal function in the setting of CKD. Her UA looked suspicious for a urinary tract infection, however culture appeared contaminated. She was found to be hyperkalemic and hyponatremic, and CXR revealed, Chronic changes. Cannot exclude bibasilar atelectasis versus chronic change. EKG showed, sinus rhythm with possible right ventricle conduction delay. Therapy evaluated her and found her to have significant ADL and gait impairments compared to her baseline and she was deemed medically appropriate for discharge to ARU on 09/15/18. 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 She was found to have venous stasis ulcers on her bilateral calves and reports not being followed by wound clinic. REVIEW OF SYSTEMS: The following is a completed review of systems and has been reviewed. Review of systems otherwise unremarkable. PAIN: Patient self reports low back pain and right elbow pain EYES: Negative for recent vision loss EARS, NOSE, & THROAT: denies dysphagia, throat pain, or rhinorrhea CARDIOVASCULAR: denies chest pain or palpitations PULMONARY: Negative. +shortness of breath with exertion on 02 GASTROINTESTINAL: Negative for diarrhea/constipation GENITOURINARY: Negative for dysuria MUSCULOSKELETAL: right elbow pain, RA in hands/wrist NEUROLOGICAL: no focal deficit, no seizures SKIN: left digit ulcer, bilateral calf venous stasis ulcers PSYCHIATRIC: Unremarkable All other review of systems found to be negative. PAST MEDICAL HISTORY: CAD, PAD, bilateral CEA, RA, gout, on home 02 PAST SURGICAL HISTORY: bilateral hip replacements, hysterectomy with bilateral salpingo-oophorectomy ALLERGIES: Please see below. MEDICATIONS: Please see below. SOCIAL HISTORY: denies smoking, ETOH, or illicit drugs, lives with who helps dress her DIET: Regular PHYSICAL EXAMINATION: VITAL SIGNS: Please see below. GENERAL: Pleasant and cooperative. No acute distress. HEENT: PERRL. Extraocular movements intact. Clear conjunctiva CARDIOVASCULAR: Regular rate and rhythm. No murmurs, rubs, or gallops LUNGS: Clear to auscultation bilaterally. No wheezes. No rhonchi ABDOMEN: Soft, nontender, nondistended. Positive bowel sounds. Normal active bowel sounds NEUROLOGICAL: Alert and oriented times three. Cranial nerves II through XII grossly intact. Sensation diminished bilateral feet and caves in non-dermatomal pattern EXTREMITIES: 4\5 strength bilateral upper extremities. 4\5 strength bilateral hip flexors and knee extensors, 3/5 ankle DF SKIN: left digit ulcer, bilateral calf venous stasis ulcers with IMAGING: Imaging documentation personally reviewed by record. FUNCTIONAL STATUS: Premorbid: Independent from a wheelchair level household distances, requires assistance with dressing and some ADLs On Admission: Moderate Assist for functional transfers, Max assist for bed mobility, Contact guard for toileting GOALS: Independent from a wheelchair level and able to ambulate short household distances, Mod-I with RW for functional transfers, tioleting, bathing, grooming, pain optimization, medical optimization, assess for DMEs, family training. ASSESSMENT:78-year-old F with past medical history of COPD, CAD, PAD who presents with debility and deconditioning. PLAN: 1. Rehab: PT/OT, assess for DME needs 2. Neuro: stable 3. CArdio: pmh CAD and bilateral CEA with PAD continue Plavix-family medicine consulted to follow -HLD continue statin -left digit ulcer scheduled for amputation tomorrow with Dr. Sampson, will discharge for operation and re-admit same day 4. Resp: pmh COPD on home 02, keep 02 saturations with 02 between 88-90% 5. Renal: pmh CKD3b, slightly worsening renal function, will monitor and consider renal consult 6. Endo: pmh hypothyroidism, continue Sunthroid 7. Heme/Rheum: pmh gout and RA continue Allopurinol, Xenjalz and prednisone- percocet for pain 8. Electrolytes: recent hyponatremia and hyperkalemia, will monitor and treat accordingly, appears euvolemic 9. DVT ppx: heparin 10: GI ppx: protonix 11. Dispo: TBD POST ADMISSION PHYSICIAN EVALUATION: Medical and functional status: Description of medical status, medical assessment: As above. Rehabilitation diagnosis and current and prior cold morbid medical conditions as above. Risk of complications and plans to mitigate them as above. Description of functional status current status is as above. Prior status as above. Status compared to preadmission: There are no clinically significant differences between the patient's current status and the information described on the preadmission screening document. Treatment plan anticipated: Treatment plan is as described above. Required dis ciplines including physical therapy, occupational therapy, others as noted above Intensity of services: 3 hours a day, 6 days a week. Special considerations: There are no specific special or safety considerations that would likely preclude immediate implementation of an intensive rehabilitation program or subsequently influence the plan of care ATTESTATION: Considering all the information above, it is my best judgment that this patient requires intensive rehabilitation therapy as described above and an inpatient hospital environment due to the complexity of nursing, medical, and rehabilitation needs required by the patient. Furthermore, this patient can reasonably be expected to participate in an benefit from an inpatient rehabilitation stay with an interdisciplinary team approach to the delivery of rehabilitation care under the direction and supervision of rehabilitation physician PROGNOSIS: Excellent ESTIMATED LENGTH OF STAY:12-14 days. PROJECTED DISCHARGE DESTINATION: Home with family support and any durable medical equipment required to increase functional safety and mobility TIME SPENT COUNSELING AND COORDINATING INITIAL CARE: Greater than 70 minutes. Vital Signs Vital Sign - Last 24 Hours 09/15/18 09/15/18 09/16/18 09/16/18 16:30 20:00 06:00 10:28 Temp 98.1 98.9 97.5 Pulse 88 117 100 Resp 20 19 18 18 B/P (MAP) 130/80 (97) 139/62 (87) 159/77 (104) Pulse Ox 92 93 93 O2 Flow Rate 2.0 2.0 2.0 Laboratory Data CBC/BMP Laboratory Tests 09/16/18 06:32 Red Blood Count 3.47 L, Mean Corpuscular Volume 104.6 H, Mean Corpuscular Hemoglobin 33.4 H, Mean Corpuscular Hemoglobin Concent 32.0, Red Cell Distribution Width 14.2, Neutrophils (%) (Auto) 67.8 H, Lymphocytes (%) (Auto) 17.6 L, Monocytes (%) (Auto) 10.6 H, Eosinophils (%) (Auto) 3.1 H, Basophils (%) (Auto) 0.5, Neutrophils # (Auto) 3.8, Lymphocytes # (Auto) 1.0 L, Monocytes # (Auto) 0.6, Eosinophils # (Auto) 0.2, Basophils # (Auto) 0.0, Calcium Level 9.3, Aspartate Amino Transf (AST/SGOT) 41 H, Alanine Aminotransferase (ALT/SGPT) 40, Alkaline Phosphatase 79, Total Bilirubin 0.9, Total Protein 6.8, Albumin 3.5 Labs 24H Laboratory Tests 2 09/15/18 19:01: Urine Appearance CLEAR, Urine Color YELLOW, Urine pH 5.0, Urine Specific [place] 1.013, Urine Protein NEGATIVE, Urine Glucose (UA) NEGATIVE, Urine Ketones NEGATIVE, Urine Urobilinogen 0.2, Urine Bilirubin NEGATIVE, Urine Leukocyte Esterase TRACEH, Urine Blood NEGATIVE, Urine Nitrite NEGATIVE, Urine WBC (Auto) 4H, Urine RBC (Auto) 2, Urine Hyaline Casts (Auto) 0, Urine Bacteria (Auto) 1+H, Urine Squamous Epithelial Cells 1, Urine Sperm (Auto) 09/16/18 06:32: Immature Granulocyte % (Auto) 0.4, White Blood Count 5.6, Red Blood Count 3.47L, Hemoglobin 11.6L, Hematocrit 36.3, Mean Corpuscular Volume 104.6H, Mean Corpuscular Hemoglobin 33.4H, Mean Corpuscular Hemoglobin Concent 32.0, Red Cell Distribution Width 14.2, Platelet Count 156, Neutrophils (%) (Auto) 67.8H, Lymphocytes (%) (Auto) 17.6L, Monocytes (%) (Auto) 10.6H, Eosinophils (%) (Auto) 3.1H, Basophils (%) (Auto) 0.5, Neutrophils # (Auto) 3.8, Lymphocytes # (Auto) 1.0L, Monocytes # (Auto) 0.6, Eosinophils # (Auto) 0.2, Basophils # (Auto) 0.0, Nucleated Red Blood Cells % (auto) 0.0, Anion Gap 8, Glomerular Filtration Rate 26.1L, Blood Urea Nitrogen 31H, Creatinine 1.97H, Sodium Level 135L, Potassium Level 3.9, Chloride Level 99, Carbon Dioxide Level 28, Calcium Level 9.3, Aspartate Amino Transf (AST/SGOT) 41H, Alanine Aminotransferase (ALT/SGPT) 40, Alkaline Phosphatase 79, Total Bilirubin 0.9, Total Protein 6.8, Albumin 3.5, Albumin/Globulin Ratio 1.06 Microbiology Microbiology 09/15/18 Urine Culture, Received Pending Home Medications Scheduled Allopurinol (Zyloprim) 300 Mg Tab, 150 MG PO DAILY, (Reported) Atorvastatin Calcium (Atorvastatin Calcium) 40 Mg Tab, 40 MG PO DAILY, (Reported) Buspirone HCl (Buspirone HCl) 5 Mg Tab, 5 MG PO TID, (Reported) Calcium/Vitamin D (Calcium 500+D High Potenc 500-400 mg-Unit) 1 Tab Tab, 1 TAB PO DAILY, (Reported) Clopidogrel Bisulfate (Plavix) 75 Mg Tab, 75 MG PO DAILY, (Reported) Levothyroxine Sodium (Synthroid) 50 Mcg Tab, 50 MCG PO DAILY, (Reported) Magnesium Oxide (Magnesium Oxide) 400 Mg Cap, 400 MG PO BID, (Reported) Mesalamine (Lialda) 1.2 Gm Tab, 4.8 GM PO DAILY, (Reported) Multivitamins *[facility] STOCKED* (Thera M Plus *[facility] STOCKED*) 1 Tab Tab, 1 TAB PO DAILY, (Reported) Potassium Chloride (Potassium Chloride ER) 20 Meq Tab, 20 MEQ PO TID, (Reported) Tofacitinib Citrate (Xeljanz) 5 Mg Tab, 5 MG PO DAILY, (Reported) Trazodone HCl (Trazodone HCl) 100 Mg Tab, 200 MG PO QHS, (Reported) Vitamin D (Drisdol) 50,000 Unit Cap, 50,000 UNIT PO QWEEK, (Reported) SUNDAYS Scheduled PRN Oxycodone/Acetaminophen (Oxycodone/Acetaminophen 5-325 mg) 1 Tab Tab, 2 TAB PO QID PRN for PAIN, (Reported) Prednisone (Prednisone) 1 Mg Tab, 1 MG PO DAILY PRN for ARTHRITIS FLARE, (Reported) Allergies Coded Allergies: Clindamycin (Verified Allergy, Intermediate, rash, 09/14/18) Codeine (Verified Allergy, Mild, RASH, 09/14/18) Morphine (Verified Allergy, Mild, rash, 09/14/18) rash Penicillins (Verified Allergy, Mild, RASH, 09/14/18) NARAYAN LITTLE MD Sep 16, 2018 12:09
--- NOTE | 2018-09-16 12:30 | CR ---
DATE OF CONSULTATION: 09/16/2018 REASON FOR CONSULTATION: Right 3rd toe ulceration and infection. Loraine Crooks is a 78-year-old female who was seen in my office who had worsening condition of her right 3rd toe. The toe had ulcerated. It entered the joint level. A decision was made to have amputation of the right 3rd toe. This was scheduled for next week. However, she was admitted to the hospital due to weakness. Decision was made to bring her to the operating room while in-house for amputation of the toe to allow for early recovery. PAST MEDICAL HISTORY: Is significant for: 1. Hypertension. 2. Coronary artery disease with history of myocardial infarction (MA). 3. Peripheral arterial disease, status post right carotid endarterectomy and left carotid endarterectomy. 4. Chronic kidney disease. 5. History of ulcerative colitis. 6. Gout. 7. Rheumatoid arthritis. PAST SURGICAL HISTORY: Carotic endarterectomies bilateral. ALLERGIES: Include CLINDAMYCIN, CODEINE, MORPHINE, PENICILLIN. FAMILY HISTORY: Noncontributory. REVIEW OF SYSTEMS: Denies nausea, vomiting, fever, or chills. LOWER EXTREMITY EXAMINATION: Pedal pulses are palpable. 3rd toe is a purplish discoloration with ulceration over the proximal interphalangeal joint with some necrotic tissue underneath. ASSESSMENT: A 78-year-old female with right 3rd toe infection and ulceration. PLAN: Will plan operation tomorrow afternoon for 3rd toe amputation. The patient can be readmitted to therapy afterwards. She can be weightbearing as tolerated on this foot with no restrictions.
[2018-09-16] MEDS: XELJANZ 5 MG PO SCH (13:32)
[2018-09-16 14:00] VITALS: BP 131/79
[2018-09-16 20:00] VITALS: BP 142/72
[2018-09-16] MEDS: traZODone 100 MG TAB PO SCH (20:35)
[2018-09-16] MEDS: SENNA 8.6 MG TAB (SENOKOT) PO SCH (20:35)
[2018-09-17] VITALS (7 sets, daily range): BP systolic 124–150; BP diastolic 59–86
[2018-09-17] MEDS: PERCOCET 5MG/325MG TAB PO PRN ×2 (05:35→23:11)
[2018-09-17] MEDS: LEVOTHYROXINE 50MCG TABLET (0.05MG) PO SCH (05:35)
[2018-09-17] MEDS: HEPARIN SOD (PORCINE) 5000 UNITS/ML VIAL SQ SCH (05:50)
[2018-09-17 07:21] LABS: BASO % 0.4 % (0.0-1.0); EOS # 0.2 10^3/uL (0.0-0.50); EOS % 2.9 % (0.0-3.0); HEMATOCRIT 33.4 % (36.0-47.0); HEMOGLOBIN 10.7 g/dl (12.0-15.5); LYMPH % 18.7 % (24.0-44.0); MEAN CORPUSCULAR HEMOGLOBIN 32.9 pg (27.0-33.0); MEAN CORPUSCULAR VOLUME 102.8 fl (80.0-96.0); MONO # 0.6 10^3/uL (0.0-0.8); MONO % 11.5 % (0.0-5.0); NEUTROPHILS # 3.7 10^3/uL (1.8-7.7); NEUTROPHILS % 66.3 % (36.0-66.0); PLATELET COUNT, AUTOMATED 144 10^3/uL (150-450); RED BLOOD COUNT 3.25 10^6/uL (4.00-5.40); WHITE BLOOD COUNT 5.6 10^3/uL (4.0-10.0)
[2018-09-17 07:46] LABS: CALCIUM LEVEL 8.8 MG/DL (8.8-10.2); CREATININE FOR GFR 1.83 MG/DL (0.55-1.30); GLOMERULAR FILTRATION RATE 28.4 (>39); POTASSIUM SERUM 3.8 MEQ/L (3.5-5.1)
[2018-09-17] MEDS: XELJANZ 5 MG PO SCH (08:29)
[2018-09-17] MEDS: predniSONE 1 MG TAB PO SCH (08:29)
[2018-09-17] MEDS: ATORVASTATIN 20 MG TAB PO SCH (08:29)
[2018-09-17] MEDS: ALLOPURINOL 300 MG TAB PO SCH (08:30)
[2018-09-17] MEDS: MULTIVITAMINS/MINERALS THERAP 1 TAB PO SCH (08:30)
[2018-09-17] MEDS: DOCUSATE SODIUM 100 MG CAP PO SCH ×2 (08:30→21:04)
[2018-09-17] MEDS: busPIRone 5 MG TAB PO SCH ×3 (08:30→21:04)
[2018-09-17] MEDS: CLOPIDOGREL 75 MG TAB PO SCH (08:51)
--- NOTE | 2018-09-17 12:08 | IPNPDOC ---
PM&R Progress Note DATE OF SERVICE: Sep 17, 2018 Roving Winder Progress Note Subjective: Patient states she slept well and feels fine this morning and believes she will feel stronger once her operation is complete. REVIEW OF SYSTEMS: The following is a completed review of systems and has been reviewed. Review of systems otherwise unremarkable. PAIN: Patient self reports low back pain and right elbow pain EYES: Negative for recent vision loss EARS, NOSE, & THROAT: denies dysphagia, throat pain, or rhinorrhea CARDIOVASCULAR: denies chest pain or palpitations PULMONARY: Negative. +shortness of breath with exertion on 02 GASTROINTESTINAL: Negative for diarrhea/constipation GENITOURINARY: Negative for dysuria MUSCULOSKELETAL: right elbow pain, RA in hands/wrist NEUROLOGICAL: no focal deficit, no seizures SKIN: left digit ulcer, bilateral calf venous stasis ulcers PSYCHIATRIC: Unremarkable All other review of systems found to be negative. PHYSICAL EXAMINATION: VITAL SIGNS: Please see below. GENERAL: Pleasant and cooperative. No acute distress. HEENT: PERRL. Extraocular movements intact. Clear conjunctiva CARDIOVASCULAR: Regular rate and rhythm. No murmurs, rubs, or gallops LUNGS: Clear to auscultation bilaterally. No wheezes. No rhonchi ABDOMEN: Soft, nontender, nondistended. Positive bowel sounds. Normal active bowel sounds NEUROLOGICAL: Alert and oriented times three. Cranial nerves II through XII grossly intact. Sensation diminished bilateral feet and caves in non-dermatomal pattern EXTREMITIES: 4\5 strength bilateral upper extremities. 4\5 strength bilateral hip flexors and knee extensors, 3/5 ankle DF SKIN: right 3rd digit ulcer, bilateral calf venous stasis ulcers ASSESSMENT:78-year-old F with past medical history of COPD, CAD, PAD who presents with debility and deconditioning. PLAN: 1. Rehab: PT/OT, assess for DME needs 2. Neuro: stable 3. CArdio: pmh CAD and bilateral CEA with PAD continue Plavix-family medicine consulted to follow -HLD continue statin -right 3rd digit ulcer scheduled for amputation today with Dr. Sampson, will discharge for operation and re-admit same day 4. Resp: pmh COPD on home 02, keep 02 saturations with 02 between 88-90%-stable 5. Renal: pmh CKD3b, slightly worsening renal function, will monitor and consider renal consult 6. Endo: pmh hypothyroidism, continue Sunthroid 7. Heme/Rheum: pmh gout and RA continue Allopurinol, Xenjalz and prednisone- percocet for pain 8. Electrolytes: recent hyponatremia and hyperkalemia, will monitor and treat accordingly, appears euvolemic 9. DVT ppx: heparin 10: GI ppx: protonix 11. Dispo: TBD Allergies Coded Allergies: Clindamycin (Verified Allergy, Intermediate, rash, 09/14/18) Codeine (Verified Allergy, Mild, RASH, 09/14/18) Morphine (Verified Allergy, Mild, rash, 09/14/18) rash Penicillins (Verified Allergy, Mild, RASH, 09/14/18) Vital Signs Vital Signs Date Time Temp Pulse Resp B/P (MAP) Pulse Ox O2 Delivery O2 Flow Rate FiO2 09/17/18 09:16 2.0 09/17/18 07:00 16 09/17/18 04:00 98.1 98 124/60 (81) 95 Laboratory Data CBC/BMP Laboratory Tests 09/17/18 06:49 Red Blood Count 3.25 L, Mean Corpuscular Volume 102.8 H, Mean Corpuscular Hemoglobin 32.9, Mean Corpuscular Hemoglobin Concent 32.0, Red Cell Distribution Width 14.4, Neutrophils (%) (Auto) 66.3 H, Lymphocytes (%) (Auto) 18.7 L, Monocytes (%) (Auto) 11.5 H, Eosinophils (%) (Auto) 2.9, Basophils (%) (Auto) 0. 4, Neutrophils # (Auto) 3.7, Lymphocytes # (Auto) 1.0 L, Monocytes # (Auto) 0.6, Eosinophils # (Auto) 0.2, Basophils # (Auto) 0.0, Calcium Level 8.8 Labs 24H Laboratory Tests 2 09/17/18 06:49: Immature Granulocyte % (Auto) 0.2, White Blood Count 5.6, Red Blood Count 3.25L, Hemoglobin 10.7L, Hematocrit 33.4L, Mean Corpuscular Volume 102.8H, Mean Corpuscular Hemoglobin 32.9, Mean Corpuscular Hemoglobin Concent 32.0, Red Cell Distribution Width 14.4, Platelet Count 144L, Neutrophils (%) (Auto) 66.3H, Lymphocytes (%) (Auto) 18.7L, Monocytes (%) (Auto) 11.5H, Eosinophils (%) (Auto) 2.9, Basophils (%) (Auto) 0.4, Neutrophils # (Auto) 3.7, Lymphocytes # (Auto) 1.0L, Monocytes # (Auto) 0.6, Eosinophils # (Auto) 0.2, Basophils # (Auto) 0.0, Nucleated Red Blood Cells % (auto) 0.0, Anion Gap 5L, Glomerular Filtration Rate 28.4L, Blood Urea Nitrogen 27H, Creatinine 1.83H, Sodium Level 135L, Potassium Level 3.8, Chloride Level 101, Carbon Dioxide Level 29, Calcium Level 8.8 Microbiology Microbiology 09/15/18 Urine Culture - Final, Complete Current Medications Current Medications Current Medications Acetaminophen (Tylenol Tab) 650 mg Q4HP PRN PO fever/MILD PAIN (PS 1-4); Start 09/15/18 at 17:15 Allopurinol (Zyloprim) 150 mg DAILY PO Last administered on 09/17/18at 08:30; Start 09/16/18 at 09:00 Atorvastatin Calcium (Lipitor) 40 mg DAILY PO Last administered on 09/17/18at 08:29; Start 09/16/18 at 09:00 Buspirone HCl (Buspar) 5 mg TID PO Last administered on 09/17/18 08:30; Start 09/15/18 at 21:00 Clopidogrel Bisulfate (PLAVix) 75 mg DAILY PO Last administered on 09/16/18at 09:06; Start 09/16/18 at 09:00 Docusate Sodium (Colace) 100 mg BID PO Last administered on 09/17/18at 08:30; Start 09/15/18 at 21:00 Heparin Sodium (Porcine) (Heparin) 5,000 units Q8H SQ Last administered on 09/17/18at 05:50; Start 09/15/18 at 22:00; Status Future hold Home Med (Med Rec Complete!) ASDIRECTED XX ; Start 09/15/18 at 17:15; Stop 09/15/18 at 17:15; Status DC Levothyroxine Sodium (Synthroid) 50 mcg DAILY@06 PO Last administered on 09/17/18at 05:35; Start 09/16/18 at 06:00 Miscellaneous (Unresolved Patient Own Med Order) SEE LABEL COMMENTS DAILY XX ; Start 09/16/18 at 09:00; Stop 09/16/18 at 10:01; Status DC Multivitamins (Theragram-M) 1 tab DAILY PO Last administered on 09/17/18 08:30; Start 09/16/18 at 09:00 Oxycodone/ Acetaminophen (Percocet 5mg/ 325mg Tablet) 1 tab Q4HP PRN PO MILD/MODERATE PAIN (PS 1-7); Start 09/15/18 at 20:15; Stop 09/16/18 at 09:44; Status DC Oxycodone/ Acetaminophen (Percocet 5mg/ 325mg Tablet) 2 tab Q4HP PRN PO MILD/MODERATE PAIN (PS 1-7) Last administered on 09/17/18 05:35; Start 09/16/18 at 09:45 Patient Own Medication (Patient'S Own Med) Xeljanz 5mg po Daily DAILY PO Last administered on 09/17/18 08:29; Start 09/16/18 at 09:00 Prednisone (Deltasone) 1 mg DAILY PO Last administered on 09/17/18 08:29; Start 09/16/18 at 09:00 Senna (Senokot) 1 tab QHS PO Last administered on 09/16/18at 20:35; Start 09/15/18 at 21:00 Simethicone (Mylicon) 80 mg Q6HP PRN PO GAS PAIN; Start 09/15/18 at 20:15 Trazodone HCl (Desyrel) 200 mg QHS PO Last administered on 09/16/18at 20:35; Start 09/15/18 at 21:00 NARAYAN LITTLE MD Sep 17, 2018 12:08
[2018-09-17] MEDS: SENNA 8.6 MG TAB (SENOKOT) PO SCH (21:04)
[2018-09-17] MEDS: traZODone 100 MG TAB PO SCH (21:04)
[2018-09-18 00:50] VITALS: BP 142/63
[2018-09-18] MEDS: PERCOCET 5MG/325MG TAB PO PRN ×5 (03:09→23:12)
[2018-09-18 04:50] VITALS: BP 144/70
[2018-09-18] MEDS: LEVOTHYROXINE 50MCG TABLET (0.05MG) PO SCH (06:07)
[2018-09-18] MEDS: CLOPIDOGREL 75 MG TAB PO SCH (08:47)
[2018-09-18] MEDS: XELJANZ 5 MG PO SCH (08:48)
[2018-09-18] MEDS: ATORVASTATIN 20 MG TAB PO SCH (08:49)
[2018-09-18] MEDS: busPIRone 5 MG TAB PO SCH ×3 (08:49→20:42)
[2018-09-18] MEDS: DOCUSATE SODIUM 100 MG CAP PO SCH ×2 (08:49→20:42)
[2018-09-18] MEDS: predniSONE 1 MG TAB PO SCH (08:49)
[2018-09-18] MEDS: ALLOPURINOL 300 MG TAB PO SCH (08:49)
[2018-09-18] MEDS: MULTIVITAMINS/MINERALS THERAP 1 TAB PO SCH (08:49)
[2018-09-18 09:00] VITALS: BP 151/63
[2018-09-18 13:00] VITALS: BP 143/61
[2018-09-18] MEDS: HEPARIN SOD (PORCINE) 5000 UNITS/ML VIAL SQ SCH ×2 (13:19→21:00)
[2018-09-18 17:00] VITALS: BP 166/77
[2018-09-18] MEDS: SENNA 8.6 MG TAB (SENOKOT) PO SCH (20:42)
[2018-09-18] MEDS: traZODone 100 MG TAB PO SCH (20:42)
[2018-09-18 21:00] VITALS: BP 127/61
[2018-09-19] MEDS: PERCOCET 5MG/325MG TAB PO PRN ×4 (03:14→20:03)
[2018-09-19] MEDS: HEPARIN SOD (PORCINE) 5000 UNITS/ML VIAL SQ SCH ×3 (05:47→21:07)
[2018-09-19] MEDS: LEVOTHYROXINE 50MCG TABLET (0.05MG) PO SCH (05:47)
[2018-09-19 06:00] VITALS: BP 148/68
[2018-09-19] MEDS: MULTIVITAMINS/MINERALS THERAP 1 TAB PO SCH (07:49)
[2018-09-19] MEDS: predniSONE 1 MG TAB PO SCH (07:49)
[2018-09-19] MEDS: XELJANZ 5 MG PO SCH (07:50)
[2018-09-19] MEDS: ATORVASTATIN 20 MG TAB PO SCH (07:50)
[2018-09-19] MEDS: DOCUSATE SODIUM 100 MG CAP PO SCH ×2 (07:50→20:02)
[2018-09-19] MEDS: ALLOPURINOL 300 MG TAB PO SCH (07:50)
[2018-09-19] MEDS: CLOPIDOGREL 75 MG TAB PO SCH (07:50)
[2018-09-19] MEDS: busPIRone 5 MG TAB PO SCH ×3 (07:51→20:02)
[2018-09-19 14:00] VITALS: BP 137/74
[2018-09-19 20:00] VITALS: BP 147/75
[2018-09-19] MEDS: SENNA 8.6 MG TAB (SENOKOT) PO SCH (20:02)
[2018-09-19] MEDS: traZODone 100 MG TAB PO SCH (20:02)
[2018-09-20] MEDS: PERCOCET 5MG/325MG TAB PO PRN ×2 (05:41→21:35)
[2018-09-20] MEDS: HEPARIN SOD (PORCINE) 5000 UNITS/ML VIAL SQ SCH ×3 (05:41→21:26)
[2018-09-20] MEDS: LEVOTHYROXINE 50MCG TABLET (0.05MG) PO SCH (05:41)
[2018-09-20 06:00] VITALS: BP 138/62
[2018-09-20] MEDS: DOCUSATE SODIUM 100 MG CAP PO SCH ×2 (09:13→21:25)
[2018-09-20] MEDS: MULTIVITAMINS/MINERALS THERAP 1 TAB PO SCH (09:13)
[2018-09-20] MEDS: ATORVASTATIN 20 MG TAB PO SCH (09:14)
[2018-09-20] MEDS: CLOPIDOGREL 75 MG TAB PO SCH (09:14)
[2018-09-20] MEDS: XELJANZ 5 MG PO SCH (09:14)
[2018-09-20] MEDS: predniSONE 1 MG TAB PO SCH (09:14)
[2018-09-20] MEDS: ALLOPURINOL 300 MG TAB PO SCH (09:14)
[2018-09-20] MEDS: busPIRone 5 MG TAB PO SCH ×3 (09:14→21:25)
[2018-09-20 14:00] VITALS: BP 141/67
--- NOTE | 2018-09-20 15:15 | IPN ---
DATE: 09/20/2018 Patient is seen postoperatively. States her pain is controlled. Denies other complaints with her surgical foot. Denies nausea, vomiting, fever, or chills. Vital signs are reviewed. She has remained afebrile. Lower extremity examination: Incision well coapted without signs of dehiscence or erythema. ASSESSMENT: A 78-year-old female status post 3rd toe amputation, right. PLAN: Change dressings every other day. Okay to ambulate as tolerated. She should followup with me in 2 weeks in the office.
[2018-09-20 20:00] VITALS: BP 138/65
[2018-09-20] MEDS: SENNA 8.6 MG TAB (SENOKOT) PO SCH (21:25)
[2018-09-20] MEDS: traZODone 100 MG TAB PO SCH (21:25)
[2018-09-21 06:00] VITALS: BP 152/70
[2018-09-21] MEDS: LEVOTHYROXINE 50MCG TABLET (0.05MG) PO SCH (06:09)
[2018-09-21] MEDS: HEPARIN SOD (PORCINE) 5000 UNITS/ML VIAL SQ SCH ×3 (06:11→21:10)
[2018-09-21] MEDS: PERCOCET 5MG/325MG TAB PO PRN ×2 (06:51→17:48)
[2018-09-21] MEDS: ATORVASTATIN 20 MG TAB PO SCH (08:57)
[2018-09-21] MEDS: MULTIVITAMINS/MINERALS THERAP 1 TAB PO SCH (08:58)
[2018-09-21] MEDS: predniSONE 1 MG TAB PO SCH (08:58)
[2018-09-21] MEDS: CLOPIDOGREL 75 MG TAB PO SCH (08:58)
[2018-09-21] MEDS: ALLOPURINOL 300 MG TAB PO SCH (08:58)
[2018-09-21] MEDS: XELJANZ 5 MG PO SCH (08:58)
[2018-09-21] MEDS: DOCUSATE SODIUM 100 MG CAP PO SCH ×2 (08:58→21:10)
[2018-09-21] MEDS: busPIRone 5 MG TAB PO SCH ×3 (08:58→21:10)
[2018-09-21] MEDS: EUCERIN 120GM CREAM TOP SCH (09:00)
[2018-09-21 12:14] LABS: BASO % 0.3 % (0.0-1.0); EOS # 0.1 10^3/uL (0.0-0.50); HEMATOCRIT 31.4 % (36.0-47.0); HEMOGLOBIN 9.7 g/dl (12.0-15.5); LYMPH # 1.1 10^3/uL (1.5-4.5); LYMPH % 18.7 % (24.0-44.0); MEAN CORPUSCULAR HEMOGLOBIN 32.9 pg (27.0-33.0); MEAN CORPUSCULAR HGB CONC 30.9 g/dl (32.0-36.5); MEAN CORPUSCULAR VOLUME 106.4 fl (80.0-96.0); MONO # 0.6 10^3/uL (0.0-0.8); NEUTROPHILS # 4.1 10^3/uL (1.8-7.7); NEUTROPHILS % 68.8 % (36.0-66.0); PLATELET COUNT, AUTOMATED 138 10^3/uL (150-450); RED BLOOD COUNT 2.95 10^6/uL (4.00-5.40)
[2018-09-21 13:16] LABS: CALCIUM LEVEL 8.9 MG/DL (8.8-10.2); CREATININE FOR GFR 1.18 MG/DL (0.55-1.30); GLOMERULAR FILTRATION RATE 47.2 (>39); POTASSIUM SERUM 4.2 MEQ/L (3.5-5.1)
[2018-09-21 14:00] VITALS: BP 154/85
[2018-09-21 20:00] VITALS: BP 147/79
[2018-09-21] MEDS: SENNA 8.6 MG TAB (SENOKOT) PO SCH (21:09)
[2018-09-21] MEDS: traZODone 100 MG TAB PO SCH (21:10)
[2018-09-22] MEDS: LEVOTHYROXINE 50MCG TABLET (0.05MG) PO SCH (05:34)
[2018-09-22] MEDS: HEPARIN SOD (PORCINE) 5000 UNITS/ML VIAL SQ SCH ×3 (05:35→21:27)
[2018-09-22 06:00] VITALS: BP 150/68
[2018-09-22] MEDS: MULTIVITAMINS/MINERALS THERAP 1 TAB PO SCH (08:40)
[2018-09-22] MEDS: CLOPIDOGREL 75 MG TAB PO SCH (08:40)
[2018-09-22] MEDS: ATORVASTATIN 20 MG TAB PO SCH (08:40)
[2018-09-22] MEDS: ALLOPURINOL 300 MG TAB PO SCH (08:41)
[2018-09-22] MEDS: busPIRone 5 MG TAB PO SCH ×3 (08:41→21:26)
[2018-09-22] MEDS: EUCERIN 120GM CREAM TOP SCH (08:41)
[2018-09-22] MEDS: PERCOCET 5MG/325MG TAB PO PRN ×3 (08:41→23:11)
[2018-09-22] MEDS: DOCUSATE SODIUM 100 MG CAP PO SCH ×2 (08:41→21:27)
[2018-09-22] MEDS: XELJANZ 5 MG PO SCH (08:42)
[2018-09-22] MEDS: predniSONE 1 MG TAB PO SCH (09:00)
[2018-09-22] MEDS ORDERED: BISACODYL 10 MG SUPP PR PRN (12:15)
[2018-09-22 14:00] VITALS: BP 169/74
--- NOTE | 2018-09-22 15:09 | REP ---
Duplex extremity venous ultrasound: Bilateral lower extremity pedro luis History: Immobility. Findings: The deep veins are anechoic and fully compressible from the groin to the popliteal fossa in the left and right lower extremity. Color flow imaging is homogeneous. Spectral Doppler interrogation demonstrates intact respiratory variation in flow and normal manual augmentation of flow. There is no evidence of deep vein thrombosis. The distal superficial femoral vein was of limited visualization on the left due to a bandage. Arterial plaquing is noted bilaterally as well. Impression: Negative bilateral lower extremity duplex venous ultrasound. No evidence of deep vein thrombosis. Electronically Signed by Bogdan Epps MD 09/22/2018 02:59 P
--- NOTE | 2018-09-22 19:40 | IPNPDOC ---
PM&R Progress Note DATE OF SERVICE: Sep 21, 2018 Sweatband Cutting Machine Operator Progress Note Subjective: Patient reports she feels better after the surgery. REVIEW OF SYSTEMS: The following is a completed review of systems and has been reviewed. Review of systems otherwise unremarkable. PAIN: Patient self reports low back pain and right elbow pain EYES: Negative for recent vision loss EARS, NOSE, & THROAT: denies dysphagia, throat pain, or rhinorrhea CARDIOVASCULAR: denies chest pain or palpitations PULMONARY: Negative. +shortness of breath with exertion on 02 GASTROINTESTINAL: Negative for diarrhea/constipation GENITOURINARY: Negative for dysuria MUSCULOSKELETAL: right elbow pain, RA in hands/wrist NEUROLOGICAL: no focal deficit, no seizures SKIN: left digit ulcer, bilateral calf venous stasis ulcers PSYCHIATRIC: Unremarkable All other review of systems found to be negative. PHYSICAL EXAMINATION: VITAL SIGNS: Please see below. GENERAL: Pleasant and cooperative. No acute distress. HEENT: PERRL. Extraocular movements intact. Clear conjunctiva CARDIOVASCULAR: Regular rate and rhythm. No murmurs, rubs, or gallops LUNGS: Clear to auscultation bilaterally. No wheezes. No rhonchi ABDOMEN: Soft, nontender, nondistended. Positive bowel sounds. Normal active bowel sounds NEUROLOGICAL: Alert and oriented times three. Cranial nerves II through XII grossly intact. Sensation diminished bilateral feet and caves in non-dermatomal pattern EXTREMITIES: 4\5 strength bilateral upper extremities. 4\5 strength bilateral hip flexors and knee extensors, 3/5 ankle DF SKIN: right D3 digit amputation sutures intact mild erythema, no induration, or exudate bilateral calf venous stasis ulcers ASSESSMENT:78-year-old F with past medical history of COPD, CAD, PAD who presents with debility and deconditioning. PLAN: 1. Rehab: PT/OT, assess for DME needs 2. Neuro: stable 3. CArdio: pmh CAD and bilateral CEA with PAD continue Plavix-family medicine consulted to follow -HLD continue statin -s/p right 3rd digit ulcer s3 Dr. Sampson-feeling more energized since, afebrile, healing well 4. Resp: pmh COPD on home 02, keep 02 saturations with 02 between 88-90%-stable 5. Renal: pmh CKD3b will continue to monitor 6. Endo: pmh hypothyroidism, continue Synthroid 7. Heme/Rheum: pmh gout and RA continue Allopurinol, Xenjalz and prednisone- percocet for pain 8. Electrolytes: recent hyponatremia and hyperkalemia, will monitor and treat accordingly, appears euvolemic-stable 9. DVT ppx: heparin 10: GI ppx: protonix 11. SKin: q2d dressing changes to right foot, daily dressing changes to bilateral calves 11. Dispo: 09/30/18 to home, progressing towards goals Allergies Coded Allergies: Clindamycin (Verified Allergy, Intermediate, rash, 09/14/18) Codeine (Verified Allergy, Mild, RASH, 09/14/18) Morphine (Verified Allergy, Mild, rash, 09/14/18) rash Penicillins (Verified Allergy, Mild, RASH, 09/14/18) Vital Signs Vital Signs Date Time Temp Pulse Resp B/P (MAP) Pulse Ox O2 Delivery O2 Flow Rate FiO2 09/22/18 18:54 20 09/22/18 14:00 97.4 104 169/74 (105) 96 2.0 Microbiology Microbiology 09/15/18 Urine Culture - Final, Complete Current Medications Current Medications Current Medications Acetaminophen (Tylenol Tab) 650 mg Q4HP PRN PO fever/MILD PAIN (PS 1-4); Start 09/15/18 at 17:15 Allopurinol (Zyloprim) 150 mg DAILY PO Last administered on 09/22/18 08:41; Start 09/16/18 at 09:00 Atorvastatin Calcium (Lipitor) 40 mg DAILY PO Last administered on 09/22/18at 08:40; Start 09/16/18 at 09:00 Bisacodyl (Dulcolax Suppository) 10 mg DAILYPRN PRN [place] CONSTIPATION; Start 09/22 at 12:15 Buspirone HCl (Buspar) 5 mg TID PO Last administered on 09/22/18 15:27; Start 09/15/18 at 21:00 Clopidogrel Bisulfate (PLAVix) 75 mg DAILY PO Last administered on 09/22/18 08:40; Start 09/16/18 at 09:00 Docusate Sodium (Colace) 100 mg BID PO Last administered on 09/22/18at 08:41; Start 09/15/18 at 21:00 Heparin Sodium (Porcine) (Heparin) 5,000 units Q8H SQ Last administered on 09/22/18 15:27; Start 09/15/18 at 22:00; Status Future hold Home Med (Med Rec Complete!) ASDIRECTED XX ; Start 09/15/18 at 17:15; Stop 09/15/18 at 17:15; Status DC Levothyroxine Sodium (Synthroid) 50 mcg DAILY@06 PO Last administered on 05:34; Start 09/16/18 at 06:00 Mineral Oil/White Petrolatum (Eucerin) apply daily to bilate... DAILY TOP Last administered on 09/22/18 08:41; Start 09/21/18 at 09:00 Miscellaneous (Unresolved Patient Own Med Order) SEE LABEL COMMENTS DAILY XX ; Start 09/16/18 at 09:00; Stop 09/16/18 at 10:01; Status DC Multivitamins (Theragram-M) 1 tab DAILY PO Last administered on 09/22/18 08:40; Start 09/16/18 at 09:00 Oxycodone/ Acetaminophen (Percocet 5mg/ 325mg Tablet) 1 tab Q4HP PRN PO MILD/MODERATE PAIN (PS 1-7); Start 09/15/18 at 20:15; Stop 09/16/18 at 09:44; Status DC Oxycodone/ Acetaminophen (Percocet 5mg/ 325mg Tablet) 2 tab Q4HP PRN PO MILD/MODERATE PAIN (PS 1-7) Last administered on 09/22/18 18:54; Start 09/16/18 at 09:45 Patient Own Medication (Patient'S Own Med) Xeljanz 5mg po Daily DAILY PO Last administered on 09/22/18 08:42; Start 09/16/18 at 09:00 Prednisone (Deltasone) 1 mg DAILY PO Last administered on 09/22/18 09:00; Start 09/16/18 at 09:00 Senna (Senokot) 1 tab QHS PO Last administered on 09/21/18 21:09; Start 09/15/18 at 21:00 Simethicone (Mylicon) 80 mg Q6HP PRN PO GAS PAIN; Start 09/15/18 at 20:15 Trazodone HCl (Desyrel) 200 mg QHS PO Last administered on 3/5/19at 21:10; Start 09/15/18 at 21:00 NARAYAN LITTLE MD Sep 22, 2018 19:40
--- NOTE | 2018-09-22 19:42 | IPNPDOC ---
PM&R Progress Note DATE OF SERVICE: Sep 22, 2018 Sheriff Deputy Progress Note Subjective: Patient reports she has right calf and lower thigh pain that is worse today, but chronic in nature and relieved by straightening out her leg. REVIEW OF SYSTEMS: The following is a completed review of systems and has been reviewed. Review of systems otherwise unremarkable. PAIN: Patient self reports low back pain and right elbow pain EYES: Negative for recent vision loss EARS, NOSE, & THROAT: denies dysphagia, throat pain, or rhinorrhea CARDIOVASCULAR: denies chest pain or palpitations PULMONARY: Negative. +shortness of breath with exertion on 02 GASTROINTESTINAL: Negative for diarrhea/constipation GENITOURINARY: Negative for dysuria MUSCULOSKELETAL: right elbow pain, RA in hands/wrist NEUROLOGICAL: no focal deficit, no seizures SKIN: left digit ulcer, bilateral calf venous stasis ulcers PSYCHIATRIC: Unremarkable All other review of systems found to be negative. PHYSICAL EXAMINATION: VITAL SIGNS: Please see below. GENERAL: Pleasant and cooperative. No acute distress. HEENT: PERRL. Extraocular movements intact. Clear conjunctiva CARDIOVASCULAR: Regular rate and rhythm. No murmurs, rubs, or gallops LUNGS: Clear to auscultation bilaterally. No wheezes. No rhonchi ABDOMEN: Soft, nontender, nondistended. Positive bowel sounds. Normal active bowel sounds NEUROLOGICAL: Alert and oriented times three. Cranial nerves II through XII grossly intact. Sensation diminished bilateral feet and caves in non-dermatomal pattern EXTREMITIES: 4\5 strength bilateral upper extremities. 4\5 strength bilateral hip flexors and knee extensors, 3/5 ankle DF SKIN: right D3 digit amputation sutures intact mild erythema, no induration, or exudate bilateral calf venous stasis ulcers ASSESSMENT:78-year-old F with past medical history of COPD, CAD, PAD who presents with debility and deconditioning. PLAN: 1. Rehab: PT/OT, assess for DME needs 2. Neuro: stable 3. CArdio: pmh CAD and bilateral CEA with PAD continue Plavix-family medicine consulted to follow -HLD continue statin -s/p right 3rd digit ulcer 09/17/18 Dr. Sampson-feeling more energized since, afebrile, healing well 4. Resp: pmh COPD on home 02, keep 02 saturations with 02 between 88-90%-stable 5. Renal: pmh CKD3b will continue to monitor 6. Endo: pmh hypothyroidism, continue Synthroid 7. Heme/Rheum: pmh gout and RA continue Allopurinol, Xenjalz and prednisone- percocet for pain 8. Electrolytes: recent hyponatremia and hyperkalemia, will monitor and treat accordingly, appears euvolemic-stable 9. DVT ppx: heparin, DOppler ordered today for right calf pain- negative for D VTs bilaterally 10: GI ppx: protonix 11. SKin: q2d dressing changes to right foot, daily dressing changes to bilateral calves 11. Dispo: 09/30/18 to home, progressing towards goals Allergies Coded Allergies: Clindamycin (Verified Allergy, Intermediate, rash, 09/14/18) Codeine (Verified Allergy, Mild, RASH, 09/14/18) Morphine (Verified Allergy, Mild, rash, 09/14/18) rash Penicillins (Verified Allergy, Mild, RASH, 09/14/18) Vital Signs Vital Signs Date Time Temp Pulse Resp B/P (MAP) Pulse Ox O2 Delivery O2 Flow Rate FiO2 09/22/18 18:54 20 09/22/18 14:00 97.4 104 169/74 (105) 96 2.0 Microbiology Microbiology 09/15/18 Urine Culture - Final, Complete Current Medications Current Medications Current Medications Acetaminophen (Tylenol Tab) 650 mg Q4HP PRN PO fever/MILD PAIN (PS 1-4); Start 09/15/18 at 17:15 Allopurinol (Zyloprim) 150 mg DAILY PO Last administered on 09/22/18at 08:41; Start 09/16/18 at 09:00 Atorvastatin Calcium (Lipitor) 40 mg DAILY PO Last administered on 09/22/18at 08:40; Start 09/16/18 at 09:00 Bisacodyl (Dulcolax Suppository) 10 mg DAILYPRN PRN [place] CONSTIPATION; Start 09/22/18 at 12:15 Buspirone HCl (Buspar) 5 mg TID PO Last administered on 09/22/18at 15:27; Start 09/15/18 at 21:00 Clopidogrel Bisulfate (PLAVix) 75 mg DAILY PO Last administered on 09/22/18at 08:40; Start 09/16/18 at 09:00 Docusate Sodium (Colace) 100 mg BID PO Last administered on 09/22/18at 08:41; Start 09/15/18 at 21:00 Heparin Sodium (Porcine) (Heparin) 5,000 units Q8H SQ Last administered on 09/22/18 15:27; Start 09/15/18 at 22:00; Status Future hold Home Med (Med Rec Complete!) ASDIRECTED XX ; Start 09/15/18 at 17:15; Stop 09/15/18 at 17:15; Status DC Levothyroxine Sodium (Synthroid) 50 mcg DAILY@06 PO Last administered on 09/22/18 05:34; Start 09/16/18 at 06:00 Mineral Oil/White Petrolatum (Eucerin) apply daily to bilate... DAILY TOP Last administered on 09/22/18 08:41; Start 09/21/18 at 09:00 Miscellaneous (Unresolved Patient Own Med Order) SEE LABEL COMMENTS DAILY XX ; Start 09/16/18 at 09:00; Stop 09/16/18 at 10:01; Status DC Multivitamins (Theragram-M) 1 tab DAILY PO Last administered on 09/22/18 08:40; Start 09/16/18 at 09:00 Oxycodone/ Acetaminophen (Percocet 5mg/ 325mg Tablet) 1 tab Q4HP PRN PO MILD/MODERATE PAIN (PS 1-7); Start 09/15/18 at 20:15; Stop 09/16/18 at 09:44; Status DC Oxycodone/ Acetaminophen (Percocet 5mg/ 325mg Tablet) 2 tab Q4HP PRN PO MILD/MODERATE PAIN (PS 1-7) Last administered on 09/22/18 18:54; Start 09/16/18 at 09:45 Patient Own Medication (Patient'S Own Med) Xeljanz 5mg po Daily DAILY PO Last administered on 09/22/18 08:42; Start 09/16/18 at 09:00 Prednisone (Deltasone) 1 mg DAILY PO Last administered on 09/22/18 09:00; Start 09/16/18 at 09:00 Senna (Senokot) 1 tab QHS PO Last administered on 09/21/18at 21:09; Start 09/15/18 at 21:00 Simethicone (Mylicon) 80 mg Q6HP PRN PO GAS PAIN; Start 09/15/18 at 20:15 Trazodone HCl (Desyrel) 200 mg QHS PO Last administered on 09/21/18at 21:10; Start 09/15/18 at 21:00 NARAYAN LITTLE MD Sep 22, 2018 19:42
[2018-09-22 20:00] VITALS: BP 170/80
[2018-09-22] MEDS: SENNA 8.6 MG TAB (SENOKOT) PO SCH (21:27)
[2018-09-22] MEDS: traZODone 100 MG TAB PO SCH (21:27)
[2018-09-23 06:00] VITALS: BP 147/68
[2018-09-23] MEDS: LEVOTHYROXINE 50MCG TABLET (0.05MG) PO SCH (06:08)
[2018-09-23] MEDS: HEPARIN SOD (PORCINE) 5000 UNITS/ML VIAL SQ SCH ×3 (06:09→22:59)
[2018-09-23] MEDS: PERCOCET 5MG/325MG TAB PO PRN ×3 (06:09→20:43)
[2018-09-23] MEDS: ATORVASTATIN 20 MG TAB PO SCH (10:07)
[2018-09-23] MEDS: predniSONE 1 MG TAB PO SCH (10:07)
[2018-09-23] MEDS: ALLOPURINOL 300 MG TAB PO SCH (10:07)
[2018-09-23] MEDS: MULTIVITAMINS/MINERALS THERAP 1 TAB PO SCH (10:08)
[2018-09-23] MEDS: CLOPIDOGREL 75 MG TAB PO SCH (10:08)
[2018-09-23] MEDS: busPIRone 5 MG TAB PO SCH ×3 (10:08→20:42)
[2018-09-23] MEDS: DOCUSATE SODIUM 100 MG CAP PO SCH ×2 (10:08→20:42)
[2018-09-23] MEDS: XELJANZ 5 MG PO SCH (10:09)
[2018-09-23] MEDS: EUCERIN 120GM CREAM TOP SCH (10:09)
[2018-09-23 14:00] VITALS: BP 139/64
[2018-09-23 20:00] VITALS: BP 138/65
[2018-09-23] MEDS: SENNA 8.6 MG TAB (SENOKOT) PO SCH (20:42)
[2018-09-23] MEDS: traZODone 100 MG TAB PO SCH (20:43)
[2018-09-24] MEDS: PERCOCET 5MG/325MG TAB PO PRN ×3 (01:24→16:11)
[2018-09-24] MEDS: LEVOTHYROXINE 50MCG TABLET (0.05MG) PO SCH (05:20)
[2018-09-24] MEDS: HEPARIN SOD (PORCINE) 5000 UNITS/ML VIAL SQ SCH ×3 (05:21→21:18)
[2018-09-24 06:00] VITALS: BP 154/72
[2018-09-24 07:16] LABS: BASO % 0.5 % (0.0-1.0); EOS # 0.3 10^3/uL (0.0-0.50); EOS % 6.3 % (0.0-3.0); HEMATOCRIT 31.5 % (36.0-47.0); HEMOGLOBIN 9.7 g/dl (12.0-15.5); LYMPH # 1.1 10^3/uL (1.5-4.5); LYMPH % 26.9 % (24.0-44.0); MEAN CORPUSCULAR HEMOGLOBIN 33.7 pg (27.0-33.0); MEAN CORPUSCULAR HGB CONC 30.8 g/dl (32.0-36.5); MEAN CORPUSCULAR VOLUME 109.4 fl (80.0-96.0); MONO # 0.5 10^3/uL (0.0-0.8); MONO % 12.4 % (0.0-5.0); NEUTROPHILS # 2.1 10^3/uL (1.8-7.7); NEUTROPHILS % 53.6 % (36.0-66.0); PLATELET COUNT, AUTOMATED 139 10^3/uL (150-450); RED BLOOD COUNT 2.88 10^6/uL (4.00-5.40); WHITE BLOOD COUNT 3.9 10^3/uL (4.0-10.0)
[2018-09-24 07:43] LABS: CALCIUM LEVEL 8.7 MG/DL (8.8-10.2); CREATININE FOR GFR 1.27 MG/DL (0.55-1.30); GLOMERULAR FILTRATION RATE 43.3 (>39); POTASSIUM SERUM 4.4 MEQ/L (3.5-5.1)
[2018-09-24] MEDS: XELJANZ 5 MG PO SCH (08:34)
[2018-09-24] MEDS: CLOPIDOGREL 75 MG TAB PO SCH (08:34)
[2018-09-24] MEDS: predniSONE 1 MG TAB PO SCH (08:34)
[2018-09-24] MEDS: ATORVASTATIN 20 MG TAB PO SCH (08:34)
[2018-09-24] MEDS: ALLOPURINOL 300 MG TAB PO SCH (08:34)
[2018-09-24] MEDS: EUCERIN 120GM CREAM TOP SCH (08:34)
[2018-09-24] MEDS: MULTIVITAMINS/MINERALS THERAP 1 TAB PO SCH (08:34)
[2018-09-24] MEDS: busPIRone 5 MG TAB PO SCH ×3 (08:34→21:18)
[2018-09-24] MEDS: DOCUSATE SODIUM 100 MG CAP PO SCH ×2 (08:34→21:18)
[2018-09-24] MEDS: MAGNESIUM OXIDE 400 MG TAB (MAG-OX) PO SCH ×2 (12:23→21:18)
[2018-09-24 14:00] VITALS: BP 114/70
--- NOTE | 2018-09-24 14:14 | IPNPDOC ---
PM&R Progress Note DATE OF SERVICE: Sep 23, 2018 [employer] Progress Note Subjective: Patient reports she has had bilateral leg cramping for years and usually takes magnesium for it. REVIEW OF SYSTEMS: The following is a completed review of systems and has been reviewed. Review of systems otherwise unremarkable. PAIN: Patient self reports low back pain and right elbow pain EYES: Negative for recent vision loss EARS, NOSE, & THROAT: denies dysphagia, throat pain, or rhinorrhea CARDIOVASCULAR: denies chest pain or palpitations PULMONARY: Negative. +shortness of breath with exertion on 02 GASTROINTESTINAL: Negative for diarrhea/constipation GENITOURINARY: Negative for dysuria MUSCULOSKELETAL: right elbow pain, RA in hands/wrist NEUROLOGICAL: no focal deficit, no seizures SKIN: left digit ulcer, bilateral calf venous stasis ulcers PSYCHIATRIC: Unremarkable All other review of systems found to be negative. PHYSICAL EXAMINATION: VITAL SIGNS: Please see below. GENERAL: Pleasant and cooperative. No acute distress. HEENT: PERRL. Extraocular movements intact. Clear conjunctiva CARDIOVASCULAR: Regular rate and rhythm. No murmurs, rubs, or gallops LUNGS: Clear to auscultation bilaterally. No wheezes. No rhonchi ABDOMEN: Soft, nontender, nondistended. Positive bowel sounds. Normal active bowel sounds NEUROLOGICAL: Alert and oriented times three. Cranial nerves II through XII grossly intact. Sensation diminished bilateral feet and caves in non-dermatomal pattern EXTREMITIES: 4\5 strength bilateral upper extremities. 4\5 strength bilateral hip flexors and knee extensors, 3/5 ankle DF SKIN: right D3 digit amputation sutures intact mild erythema, no induration, or exudate bilateral calf venous stasis ulcers ASSESSMENT:78-year-old F with past medical history of COPD, CAD, PAD who presents with debility and deconditioning. PLAN: 1. Rehab: PT/OT, assess for DME needs, having difficulty walking distances greater than 10 feet due to fear and poor endurance 2. Neuro: stable 3. CArdio: pmh CAD and bilateral CEA with PAD continue Plavix-family medicine consulted to follow -HLD continue statin -s/p right 3rd digit ulcer 09/17/18 Dr. Sampson-feeling more energized since, afebrile, healing well 4. Resp: pmh COPD on home 02, keep 02 saturations with 02 between 88-90%-stable 5. Renal: pmh CKD3b will continue to monitor 6. Endo: pmh hypothyroidism, continue Synthroid 7. Heme/Rheum: pmh gout and RA continue Allopurinol, Xenjalz and prednisone- percocet for pain, will add back magnesium 8. Electrolytes: recent hyponatremia and hyperkalemia, will monitor and treat accordingly, appears euvolemic-stable 9. DVT ppx: c/u heparin, DOpplers negative for DVTs bilaterally 10: GI ppx: protonix 11. SKin: q2d dressing changes to right foot, daily dressing changes to bilateral calves 11. Dispo: 09/30/18 to home, progressing towards goals Allergies Coded Allergies: Clindamycin (Verified Allergy, Intermediate, rash, 09/14/18) Codeine (Verified Allergy, Mild, RASH, 09/14/18) Morphine (Verified Allergy, Mild, rash, 09/14/18) rash Penicillins (Verified Allergy, Mild, RASH, 09/14/18) Vital Signs Vital Signs Date Time Temp Pulse Resp B/P (MAP) Pulse Ox O2 Delivery O2 Flow Rate FiO2 09/24/18 08:00 2.0 09/24/18 06:00 97.1 96 20 154/72 (99) 96 Laboratory Data CBC/BMP Laboratory Tests 09/24/18 06:42 Red Blood Count 2.88 L, Mean Corpuscular Volume 109.4 H, Mean Corpuscular Hemoglobin 33.7 H, Mean Corpuscular Hemoglobin Concent 30.8 L, Red Cell Distribution Width 16.8 H, Neutrophils (%) (Auto) 53.6, Lymphocytes (%) (Auto) 26.9, Monocytes (%) (Auto) 12.4 H, Eosinophils (%) (Auto) 6.3 H, Basophils (%) (Auto) 0.5, Neutrophils # (Auto) 2.1, Lymphocytes # (Auto) 1.1 L, Monocytes # (Auto) 0.5, Eosinophils # (Auto) 0.3, Basophils # (Auto) 0.0, Calcium Level 8.7 L Labs 24H Laboratory Tests 2 09/24/18 06:42: Immature Granulocyte % (Auto) 0.3, White Blood Count 3.9L, Red Blood Count 2.88L, Hemoglobin 9.7L, Hematocrit 31.5L, Mean Corpuscular Volume 109.4H, Mean Corpuscular Hemoglobin 33.7H, Mean Corpuscular Hemoglobin Concent 30.8L, Red Ce ll Distribution Width 16.8H, Platelet Count 139L, Neutrophils (%) (Auto) 53.6, Lymphocytes (%) (Auto) 26.9, Monocytes (%) (Auto) 12.4H, Eosinophils (%) (Auto) 6.3H, Basophils (%) (Auto) 0.5, Neutrophils # (Auto) 2.1, Lymphocytes # (Auto) 1.1L, Monocytes # (Auto) 0.5, Eosinophils # (Auto) 0.3, Basophils # (Auto) 0.0, Nucleated Red Blood Cells % (auto) 0.0, Anion Gap 3L, Glomerular Filtration Rate 43.3, Blood Urea Nitrogen 14, Creatinine 1.27, Sodium Level 140, Potassium Level 4.4, Chloride Level 104, Carbon Dioxide Level 33H, Calcium Level 8.7L Microbiology Microbiology 09/15/18 Urine Culture - Final, Complete Current Medications Current Medications Current Medications Acetaminophen (Tylenol Tab) 650 mg Q4HP PRN PO fever/MILD PAIN (PS 1-4); Start 09/15/18 at 17:15 Allopurinol (Zyloprim) 150 mg DAILY PO Last administered on 09/24/18 08:34; Start 09/16/18 at 09:00 Atorvastatin Calcium (Lipitor) 40 mg DAILY PO Last administered on 09/24/18 08:34; Start 09/16/18 at 09:00 Bisacodyl (Dulcolax Suppository) 10 mg DAILYPRN PRN ME CONSTIPATION; Start 09/22/18 at 12:15 Buspirone HCl (Buspar) 5 mg TID PO Last administered on 09/24/18 08:34; Start 09/15/18 at 21:00 Clopidogrel Bisulfate (PLAVix) 75 mg DAILY PO Last administered on 09/24/18 08:34; Start 09/16/18 at 09:00 Docusate Sodium (Colace) 100 mg BID PO Last administered on 09/24/18 08:34; Start 09/15/18 at 21:00 Heparin Sodium (Porcine) (Heparin) 5,000 units Q8H SQ Last administered on 09/24/18at 13:56; Start 09/15/18 at 22:00; Status Future hold Home Med (Med Rec Complete!) ASDIRECTED XX ; Start 09/15/18 at 17:15; Stop 09/15/18 at 17:15; Status DC Levothyroxine Sodium (Synthroid) 50 mcg DAILY@06 PO Last administered on 05:20; Start 09/16/18 at 06:00 Magnesium Oxide (Mag-Ox) 400 mg BID PO Last administered on 09/24/18at 12:23; Start 09/24/18 at 09:00 Mineral Oil/White Petrolatum (Eucerin) apply daily to bilate... DAILY TOP Last administered on 09/24/18 08:34; Start 09/21/18 at 09:00 Miscellaneous (Unresolved Clarification Entry) SEE LABEL COMMENTS DAILY XX ; Start 09/24/18 at 09:00; Stop 09/24/18 at 11:07; Status DC Miscellaneous (Unresolved Patient Own Med Order) SEE LABEL COMMENTS DAILY XX ; Start 09/16/18 at 09:00; Stop 09/16/18 at 10:01; Status DC Multivitamins (Theragram-M) 1 tab DAILY PO Last administered on 09/24/18 08:34; Start 09/16/18 at 09:00 Oxycodone/ Acetaminophen (Percocet 5mg/ 325mg Tablet) 1 tab Q4HP PRN PO MILD/MODERATE PAIN (PS 1-7); Start 09/15/18 at 20:15; Stop 09/16/18 at 09:44; Status DC Oxycodone/ Acetaminophen (Percocet 5mg/ 325mg Tablet) 2 tab Q4HP PRN PO MILD/MODERATE PAIN (PS 1-7) Last administered on 09/24/18 05:20; Start 09/16/18 at 09:45 Patient Own Medication (Patient'S Own Med) Xeljanz 5mg po Daily DAILY PO Last administered on 09/24/18 08:34; Start 09/16/18 at 09:00 Prednisone (Deltasone) 1 mg DAILY PO Last administered on 09/24/18 08:34; Start 09/16/18 at 09:00 Senna (Senokot) 1 tab QHS PO Last administered on 09/23/18at 20:42; Start 09/15/18 at 21:00 Simethicone (Mylicon) 80 mg Q6HP PRN PO GAS PAIN; Start 09/15/18 at 20:15 Trazodone HCl (Desyrel) 200 mg QHS PO Last administered on 09/23/18at 20:43; Start 09/15/18 at 21:00 NARAYAN LITTLE MD Sep 24, 2018 14:14
--- NOTE | 2018-09-24 14:16 | IPNPDOC ---
PM&R Progress Note DATE OF SERVICE: Sep 24, 2018 [employer] Progress Note Subjective: Patient seen wheeling herself to the gym states she cannot fit a wheelchair into her house and would like to purchase a hospital bed because she likes to elevate her legs. REVIEW OF SYSTEMS: The following is a completed review of systems and has been reviewed. Review of systems otherwise unremarkable. PAIN: Patient self reports low back pain and right elbow pain EYES: Negative for recent vision loss EARS, NOSE, & THROAT: denies dysphagia, throat pain, or rhinorrhea CARDIOVASCULAR: denies chest pain or palpitations PULMONARY: Negative. +shortness of breath with exertion on 02 GASTROINTESTINAL: Negative for diarrhea/constipation GENITOURINARY: Negative for dysuria MUSCULOSKELETAL: right elbow pain, RA in hands/wrist NEUROLOGICAL: no focal deficit, no seizures SKIN: left digit ulcer, bilateral calf venous stasis ulcers PSYCHIATRIC: Unremarkable All other review of systems found to be negative. PHYSICAL EXAMINATION: VITAL SIGNS: Please see below. GENERAL: Pleasant and cooperative. No acute distress. HEENT: PERRL. Extraocular movements intact. Clear conjunctiva CARDIOVASCULAR: Regular rate and rhythm. No murmurs, rubs, or gallops LUNGS: Clear to auscultation bilaterally. No wheezes. No rhonchi ABDOMEN: Soft, nontender, nondistended. Positive bowel sounds. Normal active bowel sounds NEUROLOGICAL: Alert and oriented times three. Cranial nerves II through XII grossly intact. Sensation diminished bilateral feet and caves in non-dermatomal pattern EXTREMITIES: 4\5 strength bilateral upper extremities. 4\5 strength bilateral hip flexors and knee extensors, 3/5 ankle DF SKIN: right D3 digit amputation sutures intact mild erythema, no induration, or exudate bilateral calf venous stasis ulcers ASSESSMENT:78-year-old F with past medical history of COPD, CAD, PAD who presents with debility and deconditioning. PLAN: 1. Rehab: PT/OT, assess for DME needs, having difficulty walking distances greater than 10 feet due to fear and poor endurance 2. Neuro: stable 3. CArdio: pmh CAD and bilateral CEA with PAD continue Plavix-family medicine consulted to follow -HLD continue statin -s/p right 3rd digit ulcer 09/17/18 Dr. Sampson-feeling more energized since, afebrile, healing well 4. Resp: pmh COPD on home 02, keep 02 saturations with 02 between 88-90%-stable 5. Renal: pmh CKD3b will continue to monitor 6. Endo: pmh hypothyroidism, continue Synthroid 7. Heme/Rheum: pmh gout and RA continue Allopurinol, Xenjalz and prednisone- percocet for pain, will add back magnesium 8. Electrolytes: recent hyponatremia and hyperkalemia, will monitor and treat accordingly, appears euvolemic-stable 9. DVT ppx: c/u heparin, DOpplers negative for DVTs bilaterally 10: GI ppx: protonix 11. SKin: q2d dressing changes to right foot, daily dressing changes to bilateral calves 11. Dispo: 09/30/18 to home, progressing towards goals Allergies Coded Allergies: Clindamycin (Verified Allergy, Intermediate, rash, 09/14/18) Codeine (Verified Allergy, Mild, RASH, 09/14/18) Morphine (Verified Allergy, Mild, rash, 09/14/18) rash Penicillins (Verified Allergy, Mild, RASH, 09/14/18) Vital Signs Vital Signs Date Time Temp Pulse Resp B/P (MAP) Pulse Ox O2 Delivery O2 Flow Rate FiO2 09/24/18 08:00 2.0 09/24/18 06:00 97.1 96 20 154/72 (99) 96 Laboratory Data CBC/BMP Laboratory Tests 09/24/18 06:42 Red Blood Count 2.88 L, Mean Corpuscular Volume 109.4 H, Mean Corpuscular Hemoglobin 33.7 H, Mean Corpuscular Hemoglobin Concent 30.8 L, Red Cell Distribution Width 16.8 H, Neutrophils (%) (Auto) 53.6, Lymphocytes (%) (Auto) 26.9, Monocytes (%) (Auto) 12.4 H, Eosinophils (%) (Auto) 6.3 H, Basophils (%) (Auto) 0.5, Neutrophils # (Auto) 2.1, Lymphocytes # (Auto) 1.1 L, Monocytes # (Auto) 0.5, Eosinophils # (Auto) 0.3, Basophils # (Auto) 0.0, Calcium Level 8.7 L Labs 24H Laboratory Tests 2 09/24/18 06:42: Immature Granulocyte % (Auto) 0.3, White Blood Count 3.9L, Red Blood Count 2.88L, Hemoglobin 9.7L, Hematocrit 31.5L, Mean Corpuscular Volume 109.4H, Mean Corpuscular Hemoglobin 33.7H, Mean Corpuscular Hemoglobin Concent 30.8L, Red Cell Distribution Width 16.8H, Platelet Count 139L, Neutrophils (%) (Auto) 53.6, Lymphocytes (%) (Auto) 26.9, Monocytes (%) (Auto) 12.4H, Eosinophils (%) (Auto) 6.3H, Basophils (%) (Auto) 0.5, Neutrophils # (Auto) 2.1, Lymphocytes # (Auto) 1.1L, Monocytes # (Auto) 0.5, Eosinophils # (Auto) 0.3, Basophils # (Auto) 0.0, Nucleated Red Blood Cells % (auto) 0.0, Anion Gap 3L, Glomerular Filtration Rate 43.3, Blood Urea Nitrogen 14, Creatinine 1.27, Sodium Level 140, Potassium Level 4.4, Chloride Level 104, Carbon Dioxide Level 33H, Calcium Level 8.7L Microbiology Microbiology 09/15/18 Urine Culture - Final, Complete Current Medications Current Medications Current Medications Acetaminophen (Tylenol Tab) 650 mg Q4HP PRN PO fever/MILD PAIN (PS 1-4); Start 09/15/18 at 17:15 Allopurinol (Zyloprim) 150 mg DAILY PO Last administered on 09/24/18 08:34; Start 09/16/18 at 09:00 Atorvastatin Calcium (Lipitor) 40 mg DAILY PO Last administered on 09/24/18 08:34; Start 09/16/18 at 09:00 Bisacodyl (Dulcolax Suppository) 10 mg DAILYPRN PRN [place] CONSTIPATION; Start 09/22/18 at 12:15 Buspirone HCl (Buspar) 5 mg TID PO Last administered on 09/24/18 08:34; Start 09/15/18 at 21:00 Clopidogrel Bisulfate (PLAVix) 75 mg DAILY PO Last administered on 09/24/18 08:34; Start 09/16/18 at 09:00 Docusate Sodium (Colace) 100 mg BID PO Last administered on 09/24/18 08:34; Start 09/15/18 at 21:00 Heparin Sodium (Porcine) (Heparin) 5,000 units Q8H SQ Last administered on 09/24/18 13:56; Start 09/15/18 at 22:00; Status Future hold Home Med (Med Rec Complete!) ASDIRECTED XX ; Start 09/15/18 at 17:15; Stop 09/15/18 at 17:15; Status DC Levothyroxine Sodium (Synthroid) 50 mcg DAILY@06 PO Last administered on 09/24/18 05:20; Start 09/16/18 at 06:00 Magnesium Oxide (Mag-Ox) 400 mg BID PO Last administered on 09/24/18at 12:23; Start 09/24/18 at 09:00 Mineral Oil/White Petrolatum (Eucerin) apply daily to bilate... DAILY TOP Last administered on 09/24/18 08:34; Start 09/21/18 at 09:00 Miscellaneous (Unresolved Clarification Entry) SEE LABEL COMMENTS DAILY XX ; Start 09/24/18 at 09:00; Stop 09/24/18 at 11:07; Status DC Miscellaneous (Unresolved Patient Own Med Order) SEE LABEL COMMENTS DAILY XX ; Start 09/16/18 at 09:00; Stop 09/16/18 at 10:01; Status DC Multivitamins (Theragram-M) 1 tab DAILY PO Last administered on 09/24/18 08:34; Start 09/16/18 at 09:00 Oxycodone/ Acetaminophen (Percocet 5mg/ 325mg Tablet) 1 tab Q4HP PRN PO MILD/MODERATE PAIN (PS 1-7); Start 09/15/18 at 20:15; Stop 09/16/18 at 09:44; Status DC Oxycodone/ Acetaminophen (Percocet 5mg/ 325mg Tablet) 2 tab Q4HP PRN PO MILD/MODERATE PAIN (PS 1-7) Last administered on 09/24/18 05:20; Start 09/16/18 at 09:45 Patient Own Medication (Patient'S Own Med) Xeljanz 5mg po Daily DAILY PO Last administered on 09/24/18 08:34; Start 09/16/18 at 09:00 Prednisone (Deltasone) 1 mg DAILY PO Last administered on 09/24/18 08:34; Start 09/16/18 at 09:00 Senna (Senokot) 1 tab QHS PO Last administered on 09/23/18at 20:42; Start 09/15/18 at 21:00 Simethicone (Mylicon) 80 mg Q6HP PRN PO GAS PAIN; Start 09/15/18 at 20:15 Trazodone HCl (Desyrel) 200 mg QHS PO Last administered on 09/23/18at 20:43; Start 09/15/18 at 21:00 NARAYAN LITTLE MD Sep 24, 2018 14:16
[2018-09-24 20:37] VITALS: BP 122/60
[2018-09-24] MEDS: SENNA 8.6 MG TAB (SENOKOT) PO SCH (21:18)
[2018-09-24] MEDS: traZODone 100 MG TAB PO SCH (21:18)
[2018-09-25] MEDS: PERCOCET 5MG/325MG TAB PO PRN ×4 (02:22→20:58)
[2018-09-25] MEDS: LEVOTHYROXINE 50MCG TABLET (0.05MG) PO SCH (05:41)
[2018-09-25] MEDS: HEPARIN SOD (PORCINE) 5000 UNITS/ML VIAL SQ SCH ×3 (05:41→20:58)
[2018-09-25 07:11] VITALS: BP 140/65
[2018-09-25] MEDS: MAGNESIUM OXIDE 400 MG TAB (MAG-OX) PO SCH ×2 (09:23→20:48)
[2018-09-25] MEDS: busPIRone 5 MG TAB PO SCH ×3 (09:23→20:48)
[2018-09-25] MEDS: MULTIVITAMINS/MINERALS THERAP 1 TAB PO SCH (09:23)
[2018-09-25] MEDS: predniSONE 1 MG TAB PO SCH (09:23)
[2018-09-25] MEDS: ATORVASTATIN 20 MG TAB PO SCH (09:23)
[2018-09-25] MEDS: XELJANZ 5 MG PO SCH (09:23)
[2018-09-25] MEDS: CLOPIDOGREL 75 MG TAB PO SCH (09:23)
[2018-09-25] MEDS: EUCERIN 120GM CREAM TOP SCH (09:24)
[2018-09-25] MEDS: ALLOPURINOL 300 MG TAB PO SCH (09:24)
[2018-09-25] MEDS: DOCUSATE SODIUM 100 MG CAP PO SCH ×2 (09:25→21:00)
[2018-09-25 14:00] VITALS: BP 142/61
[2018-09-25 20:00] VITALS: BP 142/73
[2018-09-25] MEDS: SENNA 8.6 MG TAB (SENOKOT) PO SCH (20:48)
[2018-09-25] MEDS: traZODone 100 MG TAB PO SCH (20:48)
[2018-09-26] MEDS: HEPARIN SOD (PORCINE) 5000 UNITS/ML VIAL SQ SCH ×3 (05:40→22:00)
[2018-09-26] MEDS: LEVOTHYROXINE 50MCG TABLET (0.05MG) PO SCH (05:40)
[2018-09-26 06:00] VITALS: BP 126/61
[2018-09-26] MEDS: PERCOCET 5MG/325MG TAB PO PRN ×3 (09:42→21:31)
[2018-09-26] MEDS: MULTIVITAMINS/MINERALS THERAP 1 TAB PO SCH (09:43)
[2018-09-26] MEDS: MAGNESIUM OXIDE 400 MG TAB (MAG-OX) PO SCH ×2 (09:43→21:30)
[2018-09-26] MEDS: ATORVASTATIN 20 MG TAB PO SCH (09:43)
[2018-09-26] MEDS: DOCUSATE SODIUM 100 MG CAP PO SCH ×2 (09:43→21:30)
[2018-09-26] MEDS: XELJANZ 5 MG PO SCH (09:43)
[2018-09-26] MEDS: predniSONE 1 MG TAB PO SCH (09:44)
[2018-09-26] MEDS: ALLOPURINOL 300 MG TAB PO SCH (09:44)
[2018-09-26] MEDS: CLOPIDOGREL 75 MG TAB PO SCH (09:44)
[2018-09-26] MEDS: busPIRone 5 MG TAB PO SCH ×3 (09:44→21:29)
[2018-09-26] MEDS: EUCERIN 120GM CREAM TOP SCH (09:45)
[2018-09-26 14:30] VITALS: BP 138/70
[2018-09-26 20:00] VITALS: BP 151/59
[2018-09-26] MEDS: SENNA 8.6 MG TAB (SENOKOT) PO SCH (21:29)
[2018-09-26] MEDS: traZODone 100 MG TAB PO SCH (21:30)
[2018-09-27 06:17] VITALS: BP 148/68
[2018-09-27] MEDS: LEVOTHYROXINE 50MCG TABLET (0.05MG) PO SCH (06:17)
[2018-09-27] MEDS: PERCOCET 5MG/325MG TAB PO PRN ×4 (06:18→21:04)
[2018-09-27] MEDS: HEPARIN SOD (PORCINE) 5000 UNITS/ML VIAL SQ SCH ×3 (06:18→21:06)
[2018-09-27] MEDS: CLOPIDOGREL 75 MG TAB PO SCH (08:20)
[2018-09-27] MEDS: predniSONE 1 MG TAB PO SCH (08:20)
[2018-09-27] MEDS: busPIRone 5 MG TAB PO SCH ×3 (08:20→21:05)
[2018-09-27] MEDS: ALLOPURINOL 300 MG TAB PO SCH (08:21)
[2018-09-27] MEDS: ATORVASTATIN 20 MG TAB PO SCH (08:21)
[2018-09-27] MEDS: EUCERIN 120GM CREAM TOP SCH (08:21)
[2018-09-27] MEDS: MULTIVITAMINS/MINERALS THERAP 1 TAB PO SCH (08:21)
[2018-09-27] MEDS: MAGNESIUM OXIDE 400 MG TAB (MAG-OX) PO SCH ×2 (08:21→21:05)
[2018-09-27] MEDS: DOCUSATE SODIUM 100 MG CAP PO SCH ×2 (08:21→21:05)
[2018-09-27] MEDS: XELJANZ 5 MG PO SCH (08:23)
[2018-09-27] MEDS: LIDOCAINE 5% (LIDODERM) PATCH TD SCH (10:50)
[2018-09-27 14:00] VITALS: BP 128/59
[2018-09-27 20:00] VITALS: BP 141/75
[2018-09-27] MEDS: **NOTE PATIENT COMMENT** MISC XX SCH (21:00)
[2018-09-27] MEDS: SENNA 8.6 MG TAB (SENOKOT) PO SCH (21:05)
[2018-09-27] MEDS: traZODone 100 MG TAB PO SCH (21:05)
[2018-09-28 06:00] VITALS: BP 148/72
[2018-09-28] MEDS: LEVOTHYROXINE 50MCG TABLET (0.05MG) PO SCH (06:18)
[2018-09-28] MEDS: HEPARIN SOD (PORCINE) 5000 UNITS/ML VIAL SQ SCH ×3 (06:18→21:16)
[2018-09-28] MEDS: PERCOCET 5MG/325MG TAB PO PRN ×3 (06:20→21:15)
[2018-09-28 07:06] LABS: BASO % 0.6 % (0.0-1.0); EOS # 0.2 10^3/uL (0.0-0.50); EOS % 4.6 % (0.0-3.0); HEMATOCRIT 31.4 % (36.0-47.0); HEMOGLOBIN 9.5 g/dl (12.0-15.5); LYMPH # 1.1 10^3/uL (1.5-4.5); LYMPH % 22.7 % (24.0-44.0); MEAN CORPUSCULAR HEMOGLOBIN 33.9 pg (27.0-33.0); MEAN CORPUSCULAR HGB CONC 30.3 g/dl (32.0-36.5); MEAN CORPUSCULAR VOLUME 112.1 fl (80.0-96.0); MONO # 0.6 10^3/uL (0.0-0.8); MONO % 13.5 % (0.0-5.0); NEUTROPHILS # 2.8 10^3/uL (1.8-7.7); NEUTROPHILS % 58.2 % (36.0-66.0); PLATELET COUNT, AUTOMATED 134 10^3/uL (150-450); WHITE BLOOD COUNT 4.8 10^3/uL (4.0-10.0)
[2018-09-28 07:20] LABS: CALCIUM LEVEL 8.5 MG/DL (8.8-10.2); CREATININE FOR GFR 1.42 MG/DL (0.55-1.30); GLOMERULAR FILTRATION RATE 38.1 (>39); POTASSIUM SERUM 4.5 MEQ/L (3.5-5.1)
[2018-09-28] MEDS: DOCUSATE SODIUM 100 MG CAP PO SCH ×2 (08:26→21:14)
[2018-09-28] MEDS: MULTIVITAMINS/MINERALS THERAP 1 TAB PO SCH (08:26)
[2018-09-28] MEDS: ALLOPURINOL 300 MG TAB PO SCH (08:26)
[2018-09-28] MEDS: CLOPIDOGREL 75 MG TAB PO SCH (08:26)
[2018-09-28] MEDS: MAGNESIUM OXIDE 400 MG TAB (MAG-OX) PO SCH ×2 (08:26→21:14)
[2018-09-28] MEDS: predniSONE 1 MG TAB PO SCH (08:26)
[2018-09-28] MEDS: LIDOCAINE 5% (LIDODERM) PATCH TD SCH (08:26)
[2018-09-28] MEDS: ATORVASTATIN 20 MG TAB PO SCH (08:26)
[2018-09-28] MEDS: XELJANZ 5 MG PO SCH (08:27)
[2018-09-28] MEDS: EUCERIN 120GM CREAM TOP SCH (08:27)
[2018-09-28] MEDS: busPIRone 5 MG TAB PO SCH ×3 (08:27→21:14)
[2018-09-28 14:00] VITALS: BP 158/68
[2018-09-28 20:00] VITALS: BP 146/65
[2018-09-28] MEDS: traZODone 100 MG TAB PO SCH (21:14)
[2018-09-28] MEDS: SENNA 8.6 MG TAB (SENOKOT) PO SCH (21:14)
[2018-09-28] MEDS: **NOTE PATIENT COMMENT** MISC XX SCH (21:16)
--- NOTE | 2018-09-28 21:28 | IPNPDOC ---
PM&R Progress Note DATE OF SERVICE: Sep 27, 2018 [employer] Progress Note Subjective: Patient seen in her room states her right foot feels fine and she is concerned that her right shoulder is stiffening up. She was instructed to do pendulum s wings to prevent frozen shoulder. REVIEW OF SYSTEMS: The following is a completed review of systems and has been reviewed. Review of systems otherwise unremarkable. PAIN: Patient self reports low back pain and right elbow pain EYES: Negative for recent vision loss EARS, NOSE, & THROAT: denies dysphagia, throat pain, or rhinorrhea CARDIOVASCULAR: denies chest pain or palpitations PULMONARY: Negative. +shortness of breath with exertion on 02 GASTROINTESTINAL: Negative for diarrhea/constipation GENITOURINARY: Negative for dysuria MUSCULOSKELETAL: right elbow pain, RA in hands/wrist, right shoulder pain NEUROLOGICAL: no focal deficit, no seizures SKIN: left digit ulcer, bilateral calf venous stasis ulcers PSYCHIATRIC: Unremarkable All other review of systems found to be negative. PHYSICAL EXAMINATION: VITAL SIGNS: Please see below. GENERAL: Pleasant and cooperative. No acute distress. HEENT: PERRL. Extraocular movements intact. Clear conjunctiva CARDIOVASCULAR: Regular rate and rhythm. No murmurs, rubs, or gallops LUNGS: Clear to auscultation bilaterally. No wheezes. No rhonchi ABDOMEN: Soft, nontender, nondistended. Positive bowel sounds. Normal active bowel sounds NEUROLOGICAL: Alert and oriented times three. Cranial nerves II through XII grossly intact. Sensation diminished bilateral feet and caves in non-dermatomal pattern EXTREMITIES: 4\5 strength bilateral upper extremities. 4\5 strength bilateral hip flexors and knee extensors, 3/5 ankle DF +pain with external rotation of right shoulder and decreases ROM +TTP AC joint on right SKIN: right D3 digit amputation sutures intact mild erythema, no induration, or exudate bilateral calf venous stasis ulcers ASSESSMENT:78-year-old F with past medical history of COPD, CAD, PAD who presents with debility and deconditioning. PLAN: 1. Rehab: PT/OT, assess for DME needs, having difficulty walking distances greater than 10 feet due to fear and poor endurance 2. Neuro: stable 3. CArdio: pmh CAD and bilateral CEA with PAD continue Plavix-family medicine consulted to follow -HLD continue statin -s/p right 3rd digit ulcer 09/17/18 Dr. Sampson-feeling more energized since, afebrile, healing well 4. Resp: pmh COPD on home 02, keep 02 saturations with 02 between 88-90%-stable 5. Renal: pmh CKD3b will continue to monitor 6. Endo: pmh hypothyroidism, continue Synthroid 7. Heme/Rheum: pmh gout and RA continue Allopurinol, Xenjalz and prednisone- percocet for pain, c/u magnesium -lidoderm patch to right shoulder for arthritis 8. Electrolytes: recent hyponatremia and hyperkalemia, will monitor and treat accordingly, appears euvolemic-stable 9. DVT ppx: c/u heparin, DOpplers negative for DVTs bilaterally 10: GI ppx: protonix 11. SKin: q2d dressing changes to right foot, daily dressing changes to bilateral calves 11. Dispo: 09/30/18 to home, progressing towards goals Allergies Coded Allergies: Clindamycin (Verified Allergy, Intermediate, rash, 09/14/18) Codeine (Verified Allergy, Mild, RASH, 09/14/18) Morphine (Verified Allergy, Mild, rash, 09/14/18) rash Penicillins (Verified Allergy, Mild, RASH, 09/14/18) Vital Signs Vital Signs Date Time Temp Pulse Resp B/P (MAP) Pulse Ox O2 Delivery O2 Flow Rate FiO2 09/28/18 21:15 16 09/28/18 20:00 98.1 87 146/65 (92) 97 1.0 Laboratory Data CBC/BMP Laboratory Tests 09/28/18 06:44 Red Blood Count 2.80 L, Mean Corpuscular Volume 112.1 H, Mean Corpuscular Hemoglobin 33.9 H, Mean Corpuscular Hemoglobin Concent 30.3 L, Red Cell Distribution Width 17.7 H, Neutrophils (%) (Auto) 58.2, Lymphocytes (%) (Auto) 22.7 L, Monocytes (%) (Auto) 13.5 H, Eosinophils (%) (Auto) 4.6 H, Basophils (%) (Auto) 0.6, Neutrophils # (Auto) 2.8, Lymphocytes # (Auto) 1.1 L, Monocytes # (Auto) 0.6, Eosinophils # (Auto) 0.2, Basophils # (Auto) 0.0, Calcium Level 8.5 L Labs 24H Laboratory Tests 2 09/28/18 06:44: Immature Granulocyte % (Auto) 0.4, White Blood Count 4.8, Red Blood Count 2.80L, Hemoglobin 9.5L, Hematocrit 31.4L, Mean Corpuscular Volume 112.1H, Mean Corpuscular Hemoglobin 33.9H, Mean Corpuscular Hemoglobin Concent 30.3L, Red Cell Distribution Width 17.7H, Platelet Count 134L, Neutrophils (%) (Auto) 58.2, Lymphocytes (%) (Auto) 22.7L, Monocytes (%) (Auto) 13.5H, Eosinophils (%) (Auto) 4.6H, Basophils (%) (Auto) 0.6, Neutrophils # (Auto) 2.8, Lymphocytes # (Auto) 1.1L, Monocytes # (Auto) 0.6, Eosinophils # (Auto) 0.2, Basophils # (Auto) 0.0, Nucleated Red Blood Cells % (auto) 0.0, Anion Gap 7L, Glomerular Filtration Rate 38.1L, Blood Urea Nitrogen 15, Creatinine 1.42H, Sodium Level 139, Potassium Level 4.5, Chloride Level 104, Carbon Dioxide Level 28, Calcium Level 8.5L Current Medications Current Medications Current Medications Acetaminophen (Tylenol Tab) 650 mg Q4HP PRN PO fever/MILD PAIN (PS 1-4); Start 09/15/18 at 17:15 Allopurinol (Zyloprim) 150 mg DAILY PO Last administered on 09/28/18at 08:26; Start 09/16/18 at 09:00 Atorvastatin Calcium (Lipitor) 40 mg DAILY PO Last administered on 09/28/18at 08:26; Start 09/16/18 at 09:00 Bisacodyl (Dulcolax Suppository) 10 mg DAILYPRN PRN MD CONSTIPATION; Start 09/22/18 at 12:15 Buspirone HCl (Buspar) 5 mg TID PO Last administered on 09/28/18at 21:14; Start 09/15/18 at 21:00 Clopidogrel Bisulfate (PLAVix) 75 mg DAILY PO Last administered on 09/28/18at 08:26; Start 09/16/18 at 09:00 Docusate Sodium (Colace) 100 mg BID PO Last administered on 09/28/18at 21:14; Start 09/15/18 at 21:00 Heparin Sodium (Porcine) (Heparin) 5,000 units Q8H SQ Last administered on 09/28/18 21:16; Start 09/15/18 at 22:00; Status Future hold Home Med (Med Rec Complete!) ASDIRECTED XX ; Start 09/15/18 at 17:15; Stop 09/15/18 at 17:15; Status DC Levothyroxine Sodium (Synthroid) 50 mcg DAILY@06 PO Last administered on 09/28/18at 06:18; Start 09/16/18 at 06:00 Lidocaine (Lidoderm Patch) 1 patch DAILY TD Last administered on 09/28/18 08:26; Start 09/27/18 at 09:00 Magnesium Oxide (Mag-Ox) 400 mg BID PO Last administered on 09/28/18 21:14; Start 09/24/18 at 09:00 Mineral Oil/White Petrolatum (Eucerin) apply daily to bilate... DAILY TOP Last administered on 09/28/18 08:27; Start 09/21/18 at 09:00 Miscellaneous (Unresolved Clarification Entry) SEE LABEL COMMENTS DAILY XX ; Start 09/27/18 at 09:00; Stop 09/28/18 at 07:08; Status DC Miscellaneous (Unresolved Clarification Entry) SEE LABEL COMMENTS DAILY XX ; Start 09/24/18 at 09:00; Stop 09/24/18 at 11:07; Status DC Miscellaneous (Unresolved Patient Own Med Order) SEE LABEL COMMENTS DAILY XX ; Start 09/16/18 at 09:00; Stop 09/16/18 at 10:01; Status DC Multivitamins (Theragram-M) 1 tab DAILY PO Last administered on 09/28/18at 08:26; Start 09/16/18 at 09:00 Non-Formulary Medication ( See Comment Field Below ) REMOVE LIDODERM PATCH DAILY@21 XX Last administered on 09/28/18at 21:16; Start 09/27/18 at 21:00 Oxycodone/ Acetaminophen (Percocet 5mg/ 325mg Tablet) 1 tab Q4HP PRN PO MILD/MODERATE PAIN (PS 1-7); Start 09/15/18 at 20:15; Stop 09/16/18 at 09:44; Status DC Oxycodone/ Acetaminophen (Percocet 5mg/ 325mg Tablet) 2 tab Q4HP PRN PO MILD/MODERATE PAIN (PS 1-7) Last administered on 09/28/18 21:15; Start 09/16/18 at 09:45 Patient Own Medication (Patient'S Own Med) Xeljanz 5mg po Daily DAILY PO Last administered on 09/28/18 08:27; Start 09/16/18 at 09:00 Prednisone (Deltasone) 1 mg DAILY PO Last administered on 09/28/18 08:26; Start 09/16/18 at 09:00 Senna (Senokot) 1 tab QHS PO Last administered on 09/28/18 21:14; Start 09/15/18 at 21:00 Simethicone (Mylicon) 80 mg Q6HP PRN PO GAS PAIN; Start 09/15/18 at 20:15 Trazodone HCl (Desyrel) 200 mg QHS PO Last administered on 09/28/18 21:14; Start 09/15/18 at 21:00 NARAYAN LITTLE MD Sep 28, 2018 21:28
--- NOTE | 2018-09-28 21:30 | IPNPDOC ---
PM&R Progress Note DATE OF SERVICE: Sep 28, 2018 Journal Entry Audit Clerk Progress Note Subjective: Patient seen in her room reoprting the lidoderm patch is not helping and that she uses EMU cream at home which helps. She feels better about going home after her came in today for training. REVIEW OF SYSTEMS: The following is a completed review of systems and has been reviewed. Review of systems otherwise unremarkable. PAIN: Patient self reports low back pain and right elbow pain EYES: Negative for recent vision loss EARS, NOSE, & THROAT: denies dysphagia, throat pain, or rhinorrhea CARDIOVASCULAR: denies chest pain or palpitations PULMONARY: Negative. +shortness of breath with exertion on 02 GASTROINTESTINAL: Negative for diarrhea/constipation GENITOURINARY: Negative for dysuria MUSCULOSKELETAL: right elbow pain, RA in hands/wrist, right shoulder pain NEUROLOGICAL: no focal deficit, no seizures SKIN: left digit ulcer, bilateral calf venous stasis ulcers PSYCHIATRIC: Unremarkable All other review of systems found to be negative. PHYSICAL EXAMINATION: VITAL SIGNS: Please see below. GENERAL: Pleasant and cooperative. No acute distress. HEENT: PERRL. Extraocular movements intact. Clear conjunctiva CARDIOVASCULAR: Regular rate and rhythm. No murmurs, rubs, or gallops LUNGS: Clear to auscultation bilaterally. No wheezes. No rhonchi ABDOMEN: Soft, nontender, nondistended. Positive bowel sounds. Normal active bowel sounds NEUROLOGICAL: Alert and oriented times three. Cranial nerves II through XII grossly intact. Sensation diminished bilateral feet and caves in non-dermatomal pattern EXTREMITIES: 4\5 strength bilateral upper extremities. 4\5 strength bilateral hip flexors and knee extensors, 3/5 ankle DF +pain with external rotation of right shoulder and decreases ROM +TTP AC joint on right SKIN: right D3 digit amputation sutures intact mild erythema, no induration, or exudate bilateral calf venous stasis ulcers ASSESSMENT:78-year-old F with past medical history of COPD, CAD, PAD who presents with debility and deconditioning. PLAN: 1. Rehab: PT/OT, assess for DME needs, having difficulty walking distances gr eater than 10 feet due to fear and poor endurance, trained today for trasnfers 2. Neuro: stable 3. CArdio: pmh CAD and bilateral CEA with PAD continue Plavix-family medicine consulted to follow -HLD continue statin -s/p right 3rd digit ulcer 09/17/18 Dr. Sampson-feeling more energized since, afe brile, healing well 4. Resp: pmh COPD on home 02, keep 02 saturations with 02 between 88-90%-stable 5. Renal: pmh CKD3b will continue to monitor 6. Endo: pmh hypothyroidism, continue Synthroid 7. Heme/Rheum: pmh gout and RA continue Allopurinol, Xenjalz and prednisone- percocet for pain, c/u magnesium -lidoderm patch to right shoulder for arthritis 8. Electrolytes: recent hyponatremia and hyperkalemia, will monitor and treat accordingly, appears euvolemic-stable 9. DVT ppx: c/u heparin, DOpplers negative for DVTs bilaterally 10: GI ppx: protonix 11. SKin: q2d dressing changes to right foot, daily dressing changes to bilateral calves 11. Dispo: 09/30/18 to home, progressing towards goals Allergies Coded Allergies: Clindamycin (Verified Allergy, Intermediate, rash, 09/14/18) Codeine (Verified Allergy, Mild, RASH, 09/14/18) Morphine (Verified Allergy, Mild, rash, 09/14/18) rash Penicillins (Verified Allergy, Mild, RASH, 09/14/18) Vital Signs Vital Signs Date Time Temp Pulse Resp B/P (MAP) Pulse Ox O2 Delivery O2 Flow Rate FiO2 09/28/18 21:15 16 09/28/18 20:00 98.1 87 146/65 (92) 97 1.0 Laboratory Data CBC/BMP Laboratory Tests 09/28/18 06:44 Red Blood Count 2.80 L, Mean Corpuscular Volume 112.1 H, Mean Corpuscular Hemoglobin 33.9 H, Mean Corpuscular Hemoglobin Concent 30.3 L, Red Cell Distribution Width 17.7 H, Neutrophils (%) (Auto) 58.2, Lymphocytes (%) (Auto) 22.7 L, Monocytes (%) (Auto) 13.5 H, Eosinophils (%) (Auto) 4.6 H, Basophils (%) (Auto) 0.6, Neutrophils # (Auto) 2.8, Lymphocytes # (Auto) 1.1 L, Monocytes # (Auto) 0.6, Eosinophils # (Auto) 0.2, Basophils # (Auto) 0.0, Calcium Level 8.5 L Labs 24H Laboratory Tests 2 3/12/19 06:44: Immature Granulocyte % (Auto) 0.4, White Blood Count 4.8, Red Blood Count 2.80L, Hemoglobin 9.5L, Hematocrit 31.4L, Mean Corpuscular Volume 112.1H, Mean Corpuscular Hemoglobin 33.9H, Mean Corpuscular Hemoglobin Concent 30.3L, Red Cell Distribution Width 17.7H, Platelet Count 134L, Neutrophils (%) (Auto) 58.2, Lymphocytes (%) (Auto) 22.7L, Monocytes (%) (Auto) 13.5H, Eosinophils (%) (Auto) 4.6H, Basophils (%) (Auto) 0.6, Neutrophils # (Auto) 2.8, Lymphocytes # (Auto) 1.1L, Monocytes # (Auto) 0.6, Eosinophils # (Auto) 0.2, Basophils # (Auto) 0.0, Nucleated Red Blood Cells % (auto) 0.0, Anion Gap 7L, Glomerular Filtration Rate 38.1L, Blood Urea Nitrogen 15, Creatinine 1.42H, Sodium Level 139, Potassium Level 4.5, Chloride Level 104, Carbon Dioxide Level 28, Calcium Level 8.5L Current Medications Current Medications Current Medications Acetaminophen (Tylenol Tab) 650 mg Q4HP PRN PO fever/MILD PAIN (PS 1-4); Start 09/15/18 at 17:15 Allopurinol (Zyloprim) 150 mg DAILY PO Last administered on 09/28/18at 08:26; Start 09/16/18 at 09:00 Atorvastatin Calcium (Lipitor) 40 mg DAILY PO Last administered on 09/28/18at 08:26; Start 09/16/18 at 09:00 Bisacodyl (Dulcolax Suppository) 10 mg DAILYPRN PRN [place] CONSTIPATION; Start 09/22/18 at 12:15 Buspirone HCl (Buspar) 5 mg TID PO Last administered on 09/28/18at 21:14; Start 09/15/18 at 21:00 Clopidogrel Bisulfate (PLAVix) 75 mg DAILY PO Last administered on 09/28/18at 08:26; Start 09/16/18 at 09:00 Docusate Sodium (Colace) 100 mg BID PO Last administered on 09/28/18at 21:14; Start 09/15/18 at 21:00 Heparin Sodium (Porcine) (Heparin) 5,000 units Q8H SQ Last administered on 09/28/18 21:16; Start 09/15/18 at 22:00; Status Future hold Home Med (Med Rec Complete!) ASDIRECTED XX ; Start 09/15/18 at 17:15; Stop 09/15/18 at 17:15; Status DC Levothyroxine Sodium (Synthroid) 50 mcg DAILY@06 PO Last administered on 09/28/18at 06:18; Start 09/16/18 at 06:00 Lidocaine (Lidoderm Patch) 1 patch DAILY TD Last administered on 09/28/18 08:26; Start 09/27/18 at 09:00 Magnesium Oxide (Mag-Ox) 400 mg BID PO Last administered on 09/28/18 21:14; Start 09/24/18 at 09:00 Mineral Oil/White Petrolatum (Eucerin) apply daily to bilate... DAILY TOP Last administered on 09/28/18 08:27; Start 09/21/18 at 09:00 Miscellaneous (Unresolved Clarification Entry) SEE LABEL COMMENTS DAILY XX ; Start 09/27/18 at 09:00; Stop 09/28/18 at 07:08; Status DC Miscellaneous (Unresolved Clarification Entry) SEE LABEL COMMENTS DAILY XX ; Start 09/24/18 at 09:00; Stop 09/24/18 at 11:07; Status DC Miscellaneous (Unresolved Patient Own Med Order) SEE LABEL COMMENTS DAILY XX ; Start 09/16/18 at 09:00; Stop 09/16/18 at 10:01; Status DC Multivitamins (Theragram-M) 1 tab DAILY PO Last administered on 09/28/18at 08:26; Start 09/16/18 at 09:00 Non-Formulary Medication ( See Comment Field Below ) REMOVE LIDODERM PATCH DAILY@21 XX Last administered on 09/28/18at 21:16; Start 09/27/18 at 21:00 Oxycodone/ Acetaminophen (Percocet 5mg/ 325mg Tablet) 1 tab Q4HP PRN PO MILD/MODERATE PAIN (PS 1-7); Start 09/15/18 at 20:15; Stop 09/16/18 at 09:44; Status DC Oxycodone/ Acetaminophen (Percocet 5mg/ 325mg Tablet) 2 tab Q4HP PRN PO MILD/MODERATE PAIN (PS 1-7) Last administered on 09/28/18 21:15; Start 09/16/18 at 09:45 Patient Own Medication (Patient'S Own Med) Xeljanz 5mg po Daily DAILY PO Last administered on 09/28/18 08:27; Start 09/16/18 at 09:00 Prednisone (Deltasone) 1 mg DAILY PO Last administered on 09/28/18 08:26; Start 09/16/18 at 09:00 Senna (Senokot) 1 tab QHS PO Last administered on 09/28/18 21:14; Start 09/15/18 at 21:00 Simethicone (Mylicon) 80 mg Q6HP PRN PO GAS PAIN; Start 09/15/18 at 20:15 Trazodone HCl (Desyrel) 200 mg QHS PO Last administered on 09/28/18 21:14; Start 09/15/18 at 21:00 NARAYAN LITTLE MD Sep 28, 2018 21:30
[2018-09-29] MEDS: LEVOTHYROXINE 50MCG TABLET (0.05MG) PO SCH (05:48)
[2018-09-29] MEDS: PERCOCET 5MG/325MG TAB PO PRN ×3 (05:49→20:26)
[2018-09-29] MEDS: HEPARIN SOD (PORCINE) 5000 UNITS/ML VIAL SQ SCH ×3 (05:49→21:24)
[2018-09-29 06:00] VITALS: BP 160/74
[2018-09-29 07:46] LABS: BASO % 0.5 % (0.0-1.0); EOS # 0.2 10^3/uL (0.0-0.50); EOS % 4.4 % (0.0-3.0); HEMATOCRIT 29.8 % (36.0-47.0); HEMOGLOBIN 9.2 g/dl (12.0-15.5); LYMPH % 24.1 % (24.0-44.0); MEAN CORPUSCULAR HEMOGLOBIN 33.6 pg (27.0-33.0); MEAN CORPUSCULAR HGB CONC 30.9 g/dl (32.0-36.5); MEAN CORPUSCULAR VOLUME 108.8 fl (80.0-96.0); MONO # 0.5 10^3/uL (0.0-0.8); MONO % 11.8 % (0.0-5.0); NEUTROPHILS # 2.4 10^3/uL (1.8-7.7); PLATELET COUNT, AUTOMATED 134 10^3/uL (150-450); RED BLOOD COUNT 2.74 10^6/uL (4.00-5.40); WHITE BLOOD COUNT 4.1 10^3/uL (4.0-10.0)
[2018-09-29] MEDS: DOCUSATE SODIUM 100 MG CAP PO SCH ×2 (09:00→20:26)
[2018-09-29] MEDS: ATORVASTATIN 20 MG TAB PO SCH (09:17)
[2018-09-29] MEDS: XELJANZ 5 MG PO SCH (09:17)
[2018-09-29] MEDS: MULTIVITAMINS/MINERALS THERAP 1 TAB PO SCH (09:17)
[2018-09-29] MEDS: MAGNESIUM OXIDE 400 MG TAB (MAG-OX) PO SCH ×2 (09:17→20:26)
[2018-09-29] MEDS: EUCERIN 120GM CREAM TOP SCH (09:17)
[2018-09-29] MEDS: LIDOCAINE 5% (LIDODERM) PATCH TD SCH (09:17)
[2018-09-29] MEDS: CLOPIDOGREL 75 MG TAB PO SCH (09:18)
[2018-09-29] MEDS: busPIRone 5 MG TAB PO SCH ×3 (09:18→20:26)
[2018-09-29] MEDS: predniSONE 1 MG TAB PO SCH (09:18)
[2018-09-29] MEDS: ALLOPURINOL 300 MG TAB PO SCH (09:18)
--- NOTE | 2018-09-29 11:47 | IPNPDOC ---
PM&R Progress Note DATE OF SERVICE: Sep 29, 2018 Set Up Technician Progress Note Subjective: Patient seen in her room and said she thinks her left foot is swollen because she is not elevating her legs like she does at home, and she is open to starting a relationship with Dr. Seaman for wound management. REVIEW OF SYSTEMS: The following is a completed review of systems and has been reviewed. Review of systems otherwise unremarkable. PAIN: Patient self reports low back pain and right elbow pain EYES: Negative for recent vision loss EARS, NOSE, & THROAT: denies dysphagia, throat pain, or rhinorrhea CARDIOVASCULAR: denies chest pain or palpitations PULMONARY: Negative. +shortness of breath with exertion on 02 GASTROINTESTINAL: Negative for diarrhea/constipation GENITOURINARY: Negative for dysuria MUSCULOSKELETAL: right elbow pain, RA in hands/wrist, right shoulder pain NEUROLOGICAL: no focal deficit, no seizures SKIN: left digit ulcer, bilateral calf venous stasis ulcers PSYCHIATRIC: Unremarkable All other review of systems found to be negative. PHYSICAL EXAMINATION: VITAL SIGNS: Please see below. GENERAL: Pleasant and cooperative. No acute distress. HEENT: PERRL. Extraocular movements intact. Clear conjunctiva CARDIOVASCULAR: Regular rate and rhythm. No murmurs, rubs, or gallops LUNGS: Clear to auscultation bilaterally. No wheezes. No rhonchi ABDOMEN: Soft, nontender, nondistended. Positive bowel sounds. Normal active gen wel sounds NEUROLOGICAL: Alert and oriented times three. Cranial nerves II through XII grossly intact. Sensation diminished bilateral feet and caves in non-dermatomal pattern EXTREMITIES: 4\5 strength bilateral upper extremities. 4\5 strength bilateral hip flexors and knee extensors, 3/5 ankle DF +pain with external rotation of right shoulder and decreases ROM +TTP AC joint on right Left MTP joint TTP with dorsal midfoot swelling SKIN: right D3 digit amputation sutures intact mild erythema, no induration, or exudate bilateral calf venous stasis ulcers ASSESSMENT:78-year-old F with past medical history of COPD, CAD, PAD who presents with debility and deconditioning. PLAN: 1. Rehab: PT/OT, assess for DME needs, having difficulty walking distances greater than 10 feet due to fear and poor endurance, trained today for trasnfers 2. Neuro: stable 3. CArdio: pmh CAD and bilateral CEA with PAD continue Plavix-family medicine consulted to follow -HLD continue statin -s/p right 3rd digit ulcer 09/17/18 Dr. Sampson-feeling more energized since, afebrile, healing well 4. Resp: pmh COPD on home 02, keep 02 saturations with 02 between 88-90%-stable 5. Renal: pmh CKD3b will continue to monitor 6. Endo: pmh hypothyroidism, continue Synthroid 7. Heme/Rheum: pmh gout and RA continue Allopurinol, Xenjalz and prednisone- percocet for pain, c/u magnesium -lidoderm patch to right shoulder for arthritis 8. Electrolytes: recent hyponatremia and hyperkalemia, will monitor and treat ac cordingly, appears euvolemic-stable 9. DVT ppx: c/u heparin, DOpplers negative for DVTs bilaterally 10: GI ppx: protonix 11. SKin: q2d dressing changes to right foot, daily dressing changes to bilater al calves- will set-up o/p with Dr. Seaman -left MTP and midfoot swelling, will obtain XR t r/o fracture and acewrap and elevate 11. Dispo: 09/30/18 to home, progressing towards goals Allergies Coded Allergies: Clindamycin (Verified Allergy, Intermediate, rash, 09/14/18) Codeine (Verified Allergy, Mild, RASH, 09/14/18) Morphine (Verified Allergy, Mild, rash, 09/14/18) rash Penicillins (Verified Allergy, Mild, RASH, 09/14/18) Vital Signs Vital Signs Date Time Temp Pulse Resp B/P (MAP) Pulse Ox O2 Delivery O2 Flow Rate FiO2 09/29/18 08:00 1.0 09/29/18 06:19 17 09/29/18 06:00 97.0 71 160/74 (102) 96 Laboratory Data CBC/BMP Laboratory Tests 09/29/18 06:59 Red Blood Count 2.74 L, Mean Corpuscular Volume 108.8 H, Mean Corpuscular Hemoglobin 33.6 H, Mean Corpuscular Hemoglobin Concent 30.9 L, Red Cell Distribution Width 17.7 H, Neutrophils (%) (Auto) 59.0, Lymphocytes (%) (Auto) 24.1, Monocytes (%) (Auto) 11.8 H, Eosinophils (%) (Auto) 4.4 H, Basophils (%) (Auto) 0.5, Neutrophils # (Auto) 2.4, Lymphocytes # (Auto) 1.0 L, Monocytes # (Auto) 0.5, Eosinophils # (Auto) 0.2, Basophils # (Auto) 0.0 Labs 24H Laboratory Tests 2 09/29/18 06:59: Immature Granulocyte % (Auto) 0.2, White Blood Count 4.1, Red Blood Count 2.74L, Hemoglobin 9.2L, Hematocrit 29.8L, Mean Corpuscular Volume 108.8H, Mean Corpuscular Hemoglobin 33.6H, Mean Corpuscular Hemoglobin Concent 30.9L, Red Cell Distribution Width 17.7H, Platelet Count 134L, Neutrophils (%) (Auto) 59.0, Lymphocytes (%) (Auto) 24.1, Monocytes (%) (Auto) 11.8H, Eosinophils (%) (Auto) 4.4H, Basophils (%) (Auto) 0.5, Neutrophils # (Auto) 2.4, Lymphocytes # (Auto) 1.0L, Monocytes # (Auto) 0.5, Eosinophils # (Auto) 0.2, Basophils # (Auto) 0.0, Nucleated Red Blood Cells % (auto) 0.0 Current Medications Current Medications Current Medications Acetaminophen (Tylenol Tab) 650 mg Q4HP PRN PO fever/MILD PAIN (PS 1-4); Start 09/15/18 at 17:15 Allopurinol (Zyloprim) 150 mg DAILY PO Last administered on 09/29/18at 09:18; Start 09/16/18 at 09:00 Atorvastatin Calcium (Lipitor) 40 mg DAILY PO Last administered on 09/29/18at 09:17; Start 09/16/18 at 09:00 Bisacodyl (Dulcolax Suppository) 10 mg DAILYPRN PRN [place] CONSTIPATION; Start 09/22/18 at 12:15 Buspirone HCl (Buspar) 5 mg TID PO Last administered on 09/29/18at 09:18; Start 09/15/18 at 21:00 Clopidogrel Bisulfate (PLAVix) 75 mg DAILY PO Last administered on 09/29/18at 09:18; Start 09/16/18 at 09:00 Docusate Sodium (Colace) 100 mg BID PO Last administered on 09/28/18at 21:14; Start 09/15/18 at 21:00 Heparin Sodium (Porcine) (Heparin) 5,000 units Q8H SQ Last administered on 09/29/18at 05:49; Start 09/15/18 at 22:00; Status Future hold Home Med (Med Rec Complete!) ASDIRECTED XX ; Start 09/15/18 at 17:15; Stop 09/15/18 at 17:15; Status DC Levothyroxine Sodium (Synthroid) 50 mcg DAILY@06 PO Last administered on 09/29/18at 05:48; Start 09/16/18 at 06:00 Lidocaine (Lidoderm Patch) 1 patch DAILY TD Last administered on 09/29/18at 09:17; Start 09/27/18 at 09:00 Magnesium Oxide (Mag-Ox) 400 mg BID PO Last administered on 09/29/18 09:17; Start 09/24/18 at 09:00 Mineral Oil/White Petrolatum (Eucerin) apply daily to bilate... DAILY TOP Last administered on 09/29/18at 09:17; Start 09/21/18 at 09:00 Miscellaneous (Unresolved Clarification Entry) SEE LABEL COMMENTS DAILY XX ; Start 09/27/18 at 09:00; Stop 09/28/18 at 07:08; Status DC Miscellaneous (Unresolved Clarification Entry) SEE LABEL COMMENTS DAILY XX ; Start 09/24/18 at 09:00; Stop 09/24/18 at 11:07; Status DC Miscellaneous (Unresolved Patient Own Med Order) SEE LABEL COMMENTS DAILY XX ; Start 09/16/18 at 09:00; Stop 09/16/18 at 10:01; Status DC Multivitamins (Theragram-M) 1 tab DAILY PO Last administered on 09/29/18at 09:17; Start 09/16/18 at 09:00 Non-Formulary Medication ( See Comment Field Below ) REMOVE LIDODERM PATCH DAILY@21 XX Last administered on 09/28/18at 21:16; Start 09/27/18 at 21:00 Oxycodone/ Acetaminophen (Percocet 5mg/ 325mg Tablet) 1 tab Q4HP PRN PO MILD/MODERATE PAIN (PS 1-7); Start 09/15/18 at 20:15; Stop 09/16/18 at 09:44; Status DC Oxycodone/ Acetaminophen (Percocet 5mg/ 325mg Tablet) 2 tab Q4HP PRN PO MILD/MODERATE PAIN (PS 1-7) Last administered on 09/29/18 05:49; Start 09/16/18 at 09:45 Patient Own Medication (Patient'S Own Med) Xeljanz 5mg po Daily DAILY PO Last administered on 09/29/18 09:17; Start 09/16/18 at 09:00 Prednisone (Deltasone) 1 mg DAILY PO Last administered on 09/29/18 09:18; Start 09/16/18 at 09:00 Senna (Senokot) 1 tab QHS PO Last administered on 09/28/18 21:14; Start 09/15/18 at 21:00 Simethicone (Mylicon) 80 mg Q6HP PRN PO GAS PAIN; Start 09/15/18 at 20:15 Trazodone HCl (Desyrel) 200 mg QHS PO Last administered on 09/28/18 21:14; Start 09/15/18 at 21:00 NARAYAN LITTLE MD Sep 29, 2018 11:47
[2018-09-29 14:00] VITALS: BP 128/61
--- NOTE | 2018-09-29 15:37 | REP ---
LEFT FOOT, TWO VIEWS: HISTORY: Swelling. There is no acute fracture or dislocation. There is narrowing of the metatarsal phalangeal joint spaces. Calcifications are present inferior to the calcaneus. This represents ligamentous or tendon calcification. Soft tissue swelling is present superior to the metatarsals. IMPRESSION: 1. There is no acute fracture or dislocation. 2. There is soft tissue swelling superior to the metatarsals. Electronically Signed by Pio Michael MD 09/29/2018 03:51 P
[2018-09-29 20:00] VITALS: BP 145/69
[2018-09-29] MEDS: SENNA 8.6 MG TAB (SENOKOT) PO SCH (20:25)
[2018-09-29] MEDS: traZODone 100 MG TAB PO SCH (20:26)
[2018-09-29] MEDS: **NOTE PATIENT COMMENT** MISC XX SCH (20:30)
[2018-09-30] MEDS: PERCOCET 5MG/325MG TAB PO PRN ×2 (01:11→05:14)
[2018-09-30] MEDS: HEPARIN SOD (PORCINE) 5000 UNITS/ML VIAL SQ SCH (05:13)
[2018-09-30] MEDS: LEVOTHYROXINE 50MCG TABLET (0.05MG) PO SCH (05:13)
[2018-09-30 06:00] VITALS: BP 143/69
[2018-09-30] MEDS: LIDOCAINE 5% (LIDODERM) PATCH TD SCH (09:00)
[2018-09-30] MEDS: CLOPIDOGREL 75 MG TAB PO SCH (09:21)
[2018-09-30] MEDS: busPIRone 5 MG TAB PO SCH (09:21)
[2018-09-30] MEDS: DOCUSATE SODIUM 100 MG CAP PO SCH (09:21)
[2018-09-30] MEDS: MULTIVITAMINS/MINERALS THERAP 1 TAB PO SCH (09:21)
[2018-09-30] MEDS: XELJANZ 5 MG PO SCH (09:22)
[2018-09-30] MEDS: ATORVASTATIN 20 MG TAB PO SCH (09:22)
[2018-09-30] MEDS: MAGNESIUM OXIDE 400 MG TAB (MAG-OX) PO SCH (09:22)
[2018-09-30] MEDS: ALLOPURINOL 300 MG TAB PO SCH (09:23)
[2018-09-30] MEDS: predniSONE 1 MG TAB PO SCH (09:23)
[2018-09-30] MEDS: EUCERIN 120GM CREAM TOP SCH (09:25)
--- NOTE | 2018-10-04 17:26 | PMRDS ---
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 HISTORY OF PRESENT ILLNESS: This is a 78-year-old female with a past medical history of coronary artery disease, peripheral artery disease, bilateral CEA, rheumatoid arthritis, gout, on home oxygen (O2) and follows by podiatry for a left digit ulcer, who reported feeling weaker and unable to get around her house despite the use of a wheelchair and presented to [facility] Emergency Department (ED) on 09/14/2018. Labs were ordered, which did not reveal any ongoing infection; however, she did have worsening renal function in the setting of chronic kidney disease. Her urinalysis (UA) looked suspicious for urinary tract infection; however, culture appeared contaminated. She was found to be hyperkalemic and hyponatremic, and chest x-ray revealed "chronic changes, cannot exclude bibasilar atelectasis versus chronic change." EKG showed sinus rhythm and possible right ventricular conduction delay. Therapy evaluated her and found her to have significant activities of daily living (ADL) and gait impairments compared to her baseline, and she was deemed medically appropriate for discharge to acute rehabilitation unit (ARU) on 09/15/2018. Patient reports she has spoken with her recreation adviser who is planning a digit amputation on 09/17/2018. She was found to have venous stasis ulcers on her bilateral calves and reports is not being followed by wound clinic. PAST MEDICAL HISTORY: As per history of the present illness. HOSPITAL COURSE: The patient was admitted, enrolled in a comprehensive physical therapy (PT), occupational therapy (OT) program. She received 24-hour nursing supervision and weekly team meetings were held to discuss her progress. On 09/17/2018, Dr. Sampson performed a right 3rd digit amputation without any complications. She was found to have bilateral venous stasis wounds on her anterior calves for which dressing changes were ordered. She saturated well on her home oxygen and was continued on Synthroid for hypothyroidism. For her pain, she used Percocet and magnesium and a lidocaine patch was ordered for her right shoulder for preventative purposes as she was developing adhesive capsulitis. She was deemed functionally and medically stable to return to home with home services and outpatient followup with Dr. Sampson and Dr. Seaman for wounds. DISCHARGE MEDICATIONS: - allopurinol 150 mg daily - atorvastatin 40 mg daily - buspirone 5 mg three times a day - calcium - Plavix 75 mg daily - levothyroxine 50 mcg daily - magnesium 400 mg twice a day - mesalamine 4.8 grams by mouth daily - multivitamin - Percocet - prednisone 1 mg daily - Xeljanz 5 mg by mouth daily - trazodone 200 mg by mouth nightly - vitamin D 50,000 units every week FUNCTIONAL HISTORY UPON DISCHARGE: Patient was modified independent supine to sit, min assist for sit to supine, modified independent for rolling, contact guard assist for chair to bed. Patient able to ambulate just under 10 feet, contact guard with the use of a gait belt and rolling walker. Patient's was trained to help with ADLs and gait, and she was deemed functionally and medically stable to return to home.
== END 2018-09-30 13:20 | disposition home health service (06) | DRG 948 ==
LOC: M PM&R 16:20
PROVIDERS: ADMIT Physical Medicine & Rehabilitation; ATTEND Physical Medicine & Rehabilitation
DX: R53.81 Other malaise (principal); L97.219 Non-pressure chronic ulcer of right calf with unspecified severity; L97.229 Non-pressure chronic ulcer of left calf with unspecified severity; I25.10 Atherosclerotic heart disease of native coronary artery without angina pectoris; I73.9 Peripheral vascular disease, unspecified; M06.9 Rheumatoid arthritis, unspecified; L97.519 Non-pressure chronic ulcer of other part of right foot with unspecified severity; R26.89 Other abnormalities of gait and mobility; E03.9 Hypothyroidism, unspecified; I77.6 Arteritis, unspecified; M75.01 Adhesive capsulitis of right shoulder; N18.3 Chronic kidney disease, stage 3 (moderate); I87.2 Venous insufficiency (chronic) (peripheral); M25.521 Pain in right elbow; I12.9 Hypertensive chronic kidney disease with stage 1 through stage 4 chronic kidney disease, or unspecified chronic kidney disease; M54.5 Low back pain; M10.9 Gout, unspecified; I25.2 Old myocardial infarction; Z79.899 Other long term (current) drug therapy; Z96.643 Presence of artificial hip joint, bilateral; Z88.1 Allergy status to other antibiotic agents; Z88.0 Allergy status to penicillin; Z88.2 Allergy status to sulfonamides; Z99.81 Dependence on supplemental oxygen; Z89.421 Acquired absence of other right toe(s)

== ENCOUNTER → 2018-09-17 | Day surgery (SDC) | payer MEDICARE, BC, OTHER ==
[~2018-09-17] MED LIST changes: +BUPIVACAINE HCL 0.5% 10 ML VIAL As Ordered ONE; +LIDOCAINE 1% MDV 20ML VIAL As Ordered ONE; +LIDOCAINE 2% INJ 100 MG/5 ML SDV (FOR ANES.) As Ordered ONE; +MIDAZOLAM INJ 2 MG/2 ML VIAL (J2250) As Ordered ONE; +NORCO, ANEXSIA 5/325MG TABLET (HYDROcodone/ACETAMINOPHEN) PO PRN; +ONDANSETRON 4MG/2ML VIAL (J2405) As Ordered ONE; +PERCOCET 5MG/325MG TAB As Ordered ONE; +PERCOCET 5MG/325MG TAB PO PRN; +PROPOFOL 200 MG/20 ML VIAL As Ordered ONE; +dexameTHASONE 4 MG/ML 1ML VIAL (J1100) As Ordered ONE; +ePHEDrine SULFATE 25 MG/5 ML(5MG/ML) SYRINGE As Ordered ONE; +fentaNYL 100 MCG/2 ML INJECTION (J3010) As Ordered ONE
[2018-09-17 18:21] VITALS: BP 125/58
--- NOTE | 2018-09-20 13:02 | RO ---
DATE OF PROCEDURE: 09/17/2018 PREPROCEDURE DIAGNOSIS: Right 3rd toe infection. POSTPROCEDURE DIAGNOSIS: Right 3rd toe infection. PROCEDURE: Right 3rd toe amputation. SURGEON: Ike Sampson DPM PRODUCTION CONTROL PEGBOARD CLERK: None. ANESTHESIA: Monitored anesthesia care. Preoperative injection of 9 mL of a 1:1 mixture of 1% lidocaine plain and 0.50% Marcaine plain. ESTIMATED BLOOD LOSS: 20 mL. SPECIMEN: Right 3rd toe. MATERIALS: #3-0 nylon. INJECTABLES: None. COMPLICATIONS: None. CONDITION: Stable. Loraine Crooks is a pleasant 78-year-old female who presents to [facility] with weakness. She was admitted to the rehabilitation (rehab) facility. She has an ulcerated 3rd toe, which was planned for amputation next week. However, due to her being admitted, the decision was made to bring her to the operating room while she was in house. The patient's side and site were identified and marked in the preoperative holding area. Consent was reviewed and obtained. The risks, complications, and alternatives to the procedure were explained to the patient in detail and all questions were answered. DESCRIPTION OF PROCEDURE: The patient was brought to the operating room, placed on the operating room table in supine position, monitored anesthesia care was delivered by the anesthesia team. Preoperative injection of 9 mL of a 1:1 mixture of 1% lidocaine plain and 0.50% Marcaine plain were injected into the right foot. The right foot was prepped and draped in the normal sterile fashion. No tourniquet was used during the procedure. An elliptical incision was made around the 3rd toe and carried through with a #15 blade, full thickness. The toe was disarticulated at the metatarsophalangeal joint and sent for pathology. No further necrotic tissue or obvious bone infection were noted, proximal to the 3rd toe, site was irrigated with normal saline. Hemostasis was obtained with using Bovie, and the incision was closed with #3-0 nylon. Sterile dressings were applied. The patient was brought to the post-anesthesia care unit (PACU), vital signs stable, neurovascular status intact. She should be readmitted to the rehab facility for continued treatment. She is OK to ambulate on this foot. She should wear a postoperative shoe while ambulating.
== END | disposition home or self-care (01) ==
LOC: M SDC 08:00
PROVIDERS: ATTEND Podiatrist Foot & Ankle Surgery
DX: L03.031 Cellulitis of right toe (principal); Z88.0 Allergy status to penicillin; Z88.1 Allergy status to other antibiotic agents; Z88.5 Allergy status to narcotic agent; I25.10 Atherosclerotic heart disease of native coronary artery without angina pectoris; M06.9 Rheumatoid arthritis, unspecified; I73.9 Peripheral vascular disease, unspecified; M10.9 Gout, unspecified
CPT/HCPCS: 28820; 88305; J1100; J2250; J2405; J3010

== ENCOUNTER 2018-11-19 22:54 | Inpatient (IN) | payer MEDICARE, BC, OTHER ==
[~2018-11-19] VITALS: Ht 160 cm; Wt 73.7 kg
[~2018-11-19 22:54] MED LIST changes: -BUPIVACAINE HCL 0.5% 10 ML VIAL As Ordered ONE; -LIDOCAINE 1% MDV 20ML VIAL As Ordered ONE; -LIDOCAINE 2% INJ 100 MG/5 ML SDV (FOR ANES.) As Ordered ONE; -MIDAZOLAM INJ 2 MG/2 ML VIAL (J2250) As Ordered ONE; -NORCO, ANEXSIA 5/325MG TABLET (HYDROcodone/ACETAMINOPHEN) PO PRN; -ONDANSETRON 4MG/2ML VIAL (J2405) As Ordered ONE; -PERCOCET 5MG/325MG TAB As Ordered ONE; -PERCOCET 5MG/325MG TAB PO PRN; -PROPOFOL 200 MG/20 ML VIAL As Ordered ONE; -dexameTHASONE 4 MG/ML 1ML VIAL (J1100) As Ordered ONE; -ePHEDrine SULFATE 25 MG/5 ML(5MG/ML) SYRINGE As Ordered ONE; -fentaNYL 100 MCG/2 ML INJECTION (J3010) As Ordered ONE
[2018-11-19] MEDS ORDERED: methylPREDNISolone INJ 125 MG/2 ML VIAL (J2930) IV ONE (23:45)
[2018-11-20 00:25] LABS: BASO % 0.2 % (0.0-1.0); HEMATOCRIT 42.9 % (36.0-47.0); HEMOGLOBIN 13.4 g/dl (12.0-15.5); LYMPH # 0.3 10^3/uL (1.5-4.5); LYMPH % 6.6 % (24.0-44.0); MEAN CORPUSCULAR HEMOGLOBIN 33.3 pg (27.0-33.0); MEAN CORPUSCULAR HGB CONC 31.2 g/dl (32.0-36.5); MEAN CORPUSCULAR VOLUME 106.5 fl (80.0-96.0); MONO # 0.3 10^3/uL (0.0-0.8); NEUTROPHILS # 4.2 10^3/uL (1.8-7.7); PLATELET COUNT, AUTOMATED 157 10^3/uL (150-450); RED BLOOD COUNT 4.03 10^6/uL (4.00-5.40); WHITE BLOOD COUNT 4.8 10^3/uL (4.0-10.0)
[2018-11-20 00:34] LABS: ABG O2 SATURATION 90.2 % (95.0-99.0); ABG PARTIAL PRESSURE CO2 56.8 mmHg (35.0-45.0); ABG PARTIAL PRESSURE O2 59.5 mmHg (75.0-100.0); ABG STANDARD HCO3 28.8 MEQ/L (22.0-26.0); ABG TOTAL CO2 33.7 MEQ/L (23.0-31.0); ABG pH (ARTERIAL) 7.368 UNITS (7.350-7.450)
[2018-11-20] MEDS: IPRATROPIUM 0.5MG/ALBUTEROL 2.5MG INH SOL UD 3ML (DUONEB)(J7620) NEB PRN ×4 (00:39→22:14)
[2018-11-20 01:39] LABS: BLOOD UREA NITROGEN 33 MG/DL (7-18); CALCIUM LEVEL 9.2 MG/DL (8.8-10.2); CARBON DIOXIDE LEVEL 33 MEQ/L (21-32); CHLORIDE LEVEL 99 MEQ/L (98-107); CPK CREATINE PHOSPHOKINASE 69 U/L (26-192); CREATININE FOR GFR 1.93 MG/DL (0.55-1.30); GLOMERULAR FILTRATION RATE 26.7 (>39); GLUCOSE, FASTING 136 MG/DL (70-100); MB/CK RELATIVE INDEX 2.03 (< OR =4); NT-PRO BNP 300 PG/ML (<450); POTASSIUM SERUM 3.1 MEQ/L (3.5-5.1); SODIUM LEVEL 141 MEQ/L (136-145); TROPONIN I < 0.02 NG/ML (< 0.10)
[2018-11-20] MEDS ORDERED: IPRATROPIUM 0.5MG/ALBUTEROL 2.5MG INH SOL UD 3ML (DUONEB)(J7620) NEB ONE (03:15)
[2018-11-20] MEDS ORDERED: NS 500 ML IV ONE (03:15)
[2018-11-20] MEDS ORDERED: PROAAER10 INH (03:56)
[2018-11-20] MEDS ORDERED: METO1TAB87 PO (03:56)
[2018-11-20] MEDS ORDERED: FURO40TA2 PO (03:56)
[2018-11-20] MEDS ORDERED: POTA1TAB14 PO (03:56)
[2018-11-20] MEDS ORDERED: OYST500C PO (03:56)
--- NOTE | 2018-11-20 04:04 | HPEPDOC ---
General Date of Admission Chief Complaint The patient is a 78-year-old female admitted with a reason for visit of Shortness Of Breath. Source: Patient Exam Limitations: No limitations Timing/Duration: Week(s) (8 weeks) Severity: Mild, Moderate Associated Symptoms: Cough History of Present Illness 78 yo female with PMH of CAD, carotid artery disease, CKD stage 4, HTN, Rheumatoid arthritis, COPD, diastolic HF, and venous stasis presented to [facility] ER due to SOB which has been worsening since 2 months ago and 4 weeks of productive cough. Reported the SOB improves when sitting up and worsens when laying down; pt reported that she is able to lay flat. She denies any fever, chills, swelling of the extremities, chest pain, or palpitations. Reported that she is not following her infant teacher as she's in [place]; pt reported no staff home therapy rn. It is noted that patient was discharged from [facility] 09/30/18 with diagnosis of debility secondary to severe vasculitis and advanced osteoarthritis. Home Medications Scheduled Allopurinol (Zyloprim) 300 Mg Tab, 150 MG PO BID, (Reported) Atorvastatin Calcium (Atorvastatin Calcium) 40 Mg Tab, 40 MG PO DAILY, (Reported) Buspirone HCl (Buspirone HCl) 5 Mg Tab, 5 MG PO TID, (Reported) Calcium Carbonate/Vitamin D3 (Calcium 500+D Tablet Chew) 1 Each Tab.chew, 1 TAB PO DAILY, (Reported) Clopidogrel Bisulfate (Plavix) 75 Mg Tab, 75 MG PO DAILY, (Reported) Ergocalciferol (Vitamin D2) (Drisdol) 50,000 Unit Cap, 50,000 UNIT PO QWEEK, (Reported) SUNDAYS Furosemide (Furosemide) 40 Mg Tablet, 40 MG PO DAILY, (Reported) Levothyroxine Sodium (Levothyroxine Sodium) 50 Mcg Tab, 50 MCG PO DAILY, (Reported) Magnesium Oxide (Magnesium) 400 Mg Cap, 400 MG PO DAILY, (Reported) Mesalamine (Lialda) 1.2 Gm Tab, 4.8 GM PO DAILY, (Reported) Metoprolol Tartrate (Metoprolol Tartrate) 25 Mg Tablet, 12.5 MG PO TID, (Reported) Multivitamins (Thera M Plus Tablet) 1 Tab Tab, 1 TAB PO DAILY, (Reported) Potassium Chloride (Potassium Chloride) 20 Meq Tablet.er, 40 MEQ PO TID, (Reported) PATIENT STATES SHE HAS NOT TAKEN IN AT LEAST 2 WEEKS Tofacitinib Citrate (Xeljanz) 5 Mg Tab, 5 MG PO DAILY, (Reported) Trazodone HCl (Trazodone HCl) 100 Mg Tab, 200 MG PO QHS, (Reported) Scheduled PRN Albuterol Sulfate (Proair Hfa) 8.5 Gm Hfa.aer.ad, 2 PUFF INH Q4-6H PRN for wheezing, (Reported) Oxycodone HCl/Acetaminophen (Oxycodone-Acetaminophen 5-325) 1 Tab Tab, 2 TAB PO QID PRN for PAIN, (Reported) Prednisone (Prednisone) 1 Mg Tab, 1 MG PO DAILY PRN for ARTHRITIS FLARE, ( Reported) Allergies Coded Allergies: Penicillins (Verified Allergy, Unknown, rash, 11/19/18) clindamycin (Verified Allergy, Unknown, rash, 11/19/18) codeine (Verified Allergy, Unknown, rash, 11/19/18) morphine (Verified Allergy, Unknown, rash, 11/19/18) Past Medical History Medical History 1. Hypertension. 2. Coronary artery disease with history of inferior wall UT, RCA occlusion Feb 1999. 3. Peripheral arterial disease, status post right carotid endarterectomy and left carotid endarterectomy. 4. Chronic kidney disease stage 4C 5. History of ulcerative colitis. 6. Gout. 7. Rheumatoid arthritis. 8. Carotid artery disease, s/p right CEA in 1998; left in 2001 9. COPD 10. Impaired fasting glucose 11. B/l lower extremity venous stasis disease 12. Obesity Surgical History 1. Colonoscopy-normal 2000 2. BERNARD/BSO secondary to hemorrhage, benigh 1980 3. B/l total hip replacement 4. B/l CEA 5. B/l cataract surgery by Dr. Carey 6. Right breast biopsy c/w fibroadenoma 02/2014 7. Axillobiprofunda bypass 10/03/14 8. Left ankle ORIF-ARBEU 01/2015 9. Cholecycstectomy 1960 10. Appendectomy 1960 11. Toe nail removal Dr. Sampson 03/05/2018 12. Right third toe amputation Dr. Sampson 09/2018 Family History Significant Family History: Heart disease (Father and mother) Social History * Smoker: former Smoker (quit 20 years ago) Alcohol: Denies Drugs: denies pt lives at home with A-FIB/SOPHIAC A-FIB History Current/History of A-Fib/PAF?: No Review of Systems Constitutional: Reports: Fatigue; Denies: Chills, Fever Skin: Reports: Lesions (right anterior leg chronic open wound) Pulmonary: Reports: Dyspnea, Cough; Denies: Pleuritic Chest Pain Cardiovascular: Denies: Chest Pain, Palpitations, Edema Gastrointestinal: Denies: Nausea, Vomiting, Abdominal Pain, Diarrhea, Constipation Physical Examination General Exam: Positive: Alert, Cooperative, Mild Distress, Moderate Distress Eye Exam: Positive: Conjunctiva & lids normal ENT Exam: Positive: Atraumatic, Mucous membr. moist/pink Neck Exam: Positive: Supple Chest Exam: Positive: Rales (diffuse rales upon ausculatation), Other (accessory muscle use and nasal flaring noted; no obvious subcostal retraction); Negative: Normal air movement, Diminished Heart Exam: Positive: Tachycardic, Normal S1, Normal S2; Negative: Murmurs Abdomen Exam: Positive: Normal bowel sounds, Soft, Other (no guarding or distention) Extremity Exam: Positive: Normal pulses (bilateral radial pulse palpated), Other Skin Exam: Positive: Nl turgor and temperature, Breakdown (right anterior leg), Other skin issue (multiple ecchymosis in bilateral upperextremities. Venous stasis dermatitis in bilateral legs) Neuro Exam: Positive: Normal Speech Psych Exam: Positive: Mental status NL, Anxiety, Oriented x 3 Vital Signs Vital Signs Date Time Temp Pulse Resp B/P (MAP) Pulse Ox O2 Delivery O2 Flow Rate FiO2 11/20/18 01:24 127 84 11/19/18 23:46 152/71 (98) 11/19/18 23:09 99.5 27 Nasal Cannula 4.0 Laboratory Data Labs 24H Laboratory Tests 2 11/20/18 00:18: Blood Gas Bicarbonate Standard 28.8H, Arterial Blood pH 7.368, Arterial Blood Partial Pressure CO2 56.8H, Arterial Blood Partial Pressure O2 59.5L, Arterial Blood Total CO2 33.7H, Arterial Blood HCO3 32.0H, Arterial Blood Base Excess 5.0H, Arterial Blood Oxygen Saturation 90.2L 11/20/18 00:19: Immature Granulocyte % (Auto) 0.2, White Blood Count 4.8, Red Blood Count 4.03, Hemoglobin 13.4, Hematocrit 42.9, Mean Corpuscular Volume 106.5H, Mean Corpuscular Hemoglobin 33.3H, Mean Corpuscular Hemoglobin Concent 31.2L, Red Cell Distribution Width 15.0H, Platelet Count 157, Neutrophils (%) (Auto) 87.0H, Lymphocytes (%) (Auto) 6.6L, Monocytes (%) (Auto) 6.0H, Eosinophils (%) (Auto) 0.0, Basophils (%) (Auto) 0.2, Neutrophils # (Auto) 4.2, Lymphocytes # (Auto) 0.3L, Monocytes # (Auto) 0.3, Eosinophils # (Auto) 0.0, Basophils # (Auto) 0.0, Nucleated Red Blood Cells % (auto) 0.0 11/20/18 00:57: Anion Gap 9, Glomerular Filtration Rate 26.7L, Blood Urea Nitrogen 33H, Creatinine 1.93H, Sodium Level 141, Potassium Level 3.1L, Chloride Level 99, Carbon Dioxide Level 33H, Calcium Level 9.2, Total Creatine Kinase 69, Creatine Kinase MB 1.0, Creatine Kinase MB Relative Index 2.03, Troponin I < 0.02, GW-Yej-W-Type Natriuretic Peptide 300 CBC/BMP Laboratory Tests 11/20/18 00:19 Red Blood Count 4.03, Mean Corpuscular Volume 106.5 H, Mean Corpuscular Hemoglobin 33.3 H, Mean Corpuscular Hemoglobin Concent 31.2 L, Red Cell Distribution Width 15.0 H, Neutrophils (%) (Auto) 87.0 H, Lymphocytes (%) (Auto) 6.6 L, Monocytes (%) (Auto) 6.0 H, Eosinophils (%) (Auto) 0.0, Basophils (%) (Auto) 0.2, Neutrophils # (Auto) 4.2, Lymphocytes # (Auto) 0.3 L, Monocytes # (Auto) 0.3, Eosinophils # (Auto) 0.0, Basophils # (Auto) 0.0 11/20/18 00:57 Calcium Level 9.2, Total Creatine Kinase 69 Microbiology Microbiology 11/20/18 Blood Culture, Received Pending 11/20/18 Blood Culture, Received Pending 11/20/18 Respiratory Virus Panel (PCR) ([facility]) - Final, Complete Problems (1) Chronic respiratory failure with hypoxia and hypercapnia Status: Chronic Problem Text: Currently 88% on NC. PMH of COPD with worsening SOB since 2 months ago with productive cough. Echo to r/o pulm HTN ordered. Questionable cardiomegaly on CXR. Pt already received IV solumedrol and duoneb in ER. Oxygen therapy with albuterol PRN. Vital signs as scheduled (2) Debility Status: Chronic Problem Text: Pt walks around at home with a walker. PT and OT consult. Consider residential placement consult. (3) Hypokalemia Status: Acute Problem Text: K at 3.1. 40 meqKCL PO ordered; continue home med potassium sup plement. Mag level ordered. F/u with BMP tmrw. (4) Rheumatoid arteritis Status: Chronic Problem Text: Continue home med Xeljanz and prednisone PRN arthritis flare. Echo ordered to r/o pulm HTN. Cont to monitor the patient (5) Coronary artery disease with hx of myocardial infarct w/o hx of CABG Problem Text: Cont home med Atorvastatin and plavix. Cont to monitor the pt (6) Venous stasis dermatitis of both lower extremities Problem Text: Medical Hx of b/l lower extremity venous stasis disease. One opening wound on right anterior leg likely 2/2 venous stasis dermatitis. Wound care ordered. Cont to monitor the pt (7) CKD (chronic kidney disease), stage IV Problem Text: medical hx of CKD stage 4. GFR 26.7 today with creatinine no more than 1.5 times baseline; no NGUYỄN. Pt will be on renal diet. Cont to monitor the pt closely and f/u with BMP tmrw (8) Ulcerative colitis, chronic Problem Text: PMH of UC. Pt denies any hematochezia, melena, or diarrhea. Cont home med and cont to monitor the pt. (9) Diastolic heart failure Problem Text: PMH of diastolic heart failure per outpt record. Cont home med Furosemide. Pt did have orthopnea but denies swelling of the extremities. Cont to monitor the pt; I&O. Plan / VTE VTE Prophylaxis Ordered?: Yes Plan Therapy: PT, OT Diagnostics: Check Labs, Repeat Labs in AM Anticipated Discharge: [facility] NILE LEVY DO November 20, 2018 04:04
[2018-11-20] MEDS ORDERED: predniSONE 1 MG TAB PO PRN (04:30)
[2018-11-20] MEDS ORDERED: ALBUTEROL 90 MCG/ACT 8GM HFA INHALER INH PRN (04:30)
[2018-11-20] MEDS ORDERED: ACETAMINOPHEN TAB 650MG DOSE (2X325MG) PO PRN (04:30)
[2018-11-20] MEDS ORDERED: POTASSIUM CHLORIDE 10 MEQ SR TABLET PO ONE (04:45)
[2018-11-20 05:15] VITALS: BP 152/81
[2018-11-20] MEDS ORDERED: PILL CRUSHER/CUTTER 1 EACH XX PRN (05:15)
[2018-11-20] MEDS: LEVOTHYROXINE 50MCG TABLET (0.05MG) PO SCH (06:29)
[2018-11-20] MEDS: PERCOCET 5MG/325MG TAB PO PRN ×3 (06:30→21:49)
[2018-11-20] MEDS: METOPROLOL TART 12.5 MG PER 1/2 TAB PO SCH ×3 (08:06→21:48)
[2018-11-20] MEDS: ATORVASTATIN 20 MG TAB PO SCH (08:06)
[2018-11-20] MEDS: busPIRone 5 MG TAB PO SCH ×3 (08:06→21:46)
[2018-11-20] MEDS: MULTIVITAMINS/MINERALS THERAP 1 TAB PO SCH (08:07)
[2018-11-20] MEDS: MAGNESIUM OXIDE 400 MG TAB (MAG-OX) PO SCH (08:07)
[2018-11-20] MEDS ORDERED: FUROSEMIDE 40 MG TAB PO SCH (09:00)
[2018-11-20] MEDS ORDERED: CLOPIDOGREL 75 MG TAB PO SCH (09:00)
[2018-11-20] MEDS ORDERED: LIALDA 1.2 GM PO SCH (09:00)
[2018-11-20] MEDS ORDERED: XELJANZ 5 MG PO SCH (09:00)
[2018-11-20] MEDS: ALLOPURINOL 300 MG TAB PO SCH ×2 (09:27→21:48)
[2018-11-20] MEDS: POTASSIUM CHLORIDE 10 MEQ SR TABLET PO SCH ×3 (09:27→21:46)
[2018-11-20] MEDS ORDERED: IPRATROPIUM 0.5MG/ALBUTEROL 2.5MG INH SOL UD 3ML (DUONEB)(J7620) NEB PRN (12:30)
[2018-11-20 12:36] VITALS: BP 138/68
[2018-11-20] MEDS ORDERED: methylPREDNISolone INJ 125 MG/2 ML VIAL (J2930) IV ONE (13:00)
[2018-11-20 13:55] LABS: ABG BASE EXCESS 3.4 (-2.0-2.0); ABG HCO3 30.5 MEQ/L (22.0-26.0); ABG O2 SATURATION 87.7 % (95.0-99.0); ABG PARTIAL PRESSURE CO2 56.9 mmHg (35.0-45.0); ABG PARTIAL PRESSURE O2 53.8 mmHg (75.0-100.0); ABG STANDARD HCO3 27.3 MEQ/L (22.0-26.0); ABG TOTAL CO2 32.2 MEQ/L (23.0-31.0); ABG pH (ARTERIAL) 7.347 UNITS (7.350-7.450)
--- NOTE | 2018-11-20 13:57 | ECHO ---
DATE OF PROCEDURE: 11/19/2018 REFERRING PHYSICIAN: Dr. Amin INDICATION: Dyspnea, suspicion for pulmonary hypertension. Height 158 cm, weight 74 kg. DIMENSIONS: IVS 0.9 LV 4.2 LVPW 0.9 LA 3.3 Aorta 3.1 IVC 2.0 Mitral E wave velocity 120 E prime septal 19.7 E prime lateral 17.3 FINDINGS: The study is of rather limited technical quality with difficult visualization. The patient is in sinus rhythm. Left ventricle is normal size and overall has normal systolic function. I estimate ejection fraction around 60-65%. No obvious wall motion abnormalities were seen. Right ventricle was poorly seen but does not appear grossly enlarged. Left atrium is normal. Right atrium was poorly visualized. Aortic valve is minimally sclerotic but has three leaflets and normal mobility. Mitral and tricuspid valves appear normal. Pulmonic valve was not well seen. No pericardial effusion is noted. Inferior vena cava is in upper limits of normal size but collapses with respiration indicative of likely mildly elevated central venous pressure. Aortic root is normal. Aortic arch and abdominal aorta were not well seen. Doppler interrogation of aortic valve reveals no stenosis or insufficiency. There is also functionally competent mitral valve. Mild mitral insufficiency is seen. Calculated pulmonary artery pressure is in high 30s corresponding to mild pulmonary hypertension. Evaluation of diastolic function is complicated by absence of the A-wave. I assume that there is fusion of E and A-wave, but tissue Doppler velocities of mitral annulus are very high and consequently I believe that the patient most likely has normal or near normal diastolic function. CONCLUSION: 1. Study is of fair technical quality. 2. Normal LV size with normal LV systolic function and probably normal diastolic function. 3. No hemodynamically significant valvular disease. 4. Likely elevated central venous pressure and mild pulmonary hypertension. COMMENTS: SBE prophylaxis is not recommended.
[2018-11-20 13:58] LABS: CPK CREATINE PHOSPHOKINASE 183 U/L (26-192); TROPONIN I < 0.02 NG/ML (< 0.10)
[2018-11-20] MEDS ORDERED: LevoFLOXacin IV 500 MG in APPROPRIATE DILUENT 1 EA IV ONE (14:30)
--- NOTE | 2018-11-20 14:48 | REP ---
PORTABLE CHEST: AP portable view of the chest is performed. There is new right base infiltrate/atelectasis. There is a small right pleural effusion. Heart and mediastinum and unchanged. There is somewhat poor ventilation. I cannot exclude minimal atelectasis or infiltrate in the left base. Metallic clips overlie the right apex. IMPRESSION: Patchy atelectasis/infiltrate right lung base with a small right effusion. There may be some minor atelectasis or infiltrate in the left base. Electronically Signed by Karel Youssef MD 11/20/2018 03:57 P
--- NOTE | 2018-11-20 16:32 | ECGEPIP ---
Stationary ECG Study [facility] Test Date: 2018-11-20 Pat Name: LILIBETH MELLO Department: Room: [place] [address] Gender: F [employer]: ALENA : 1940 Requested By: SUSHANT CORDOVA Order Number: [id number] Reading MD: Cecil Tirado Measurements Intervals Poneto Rate: 102 P: 44 DE: 187 QRS: 26 QRSD: 98 T: 15 QT: 350 QTc: 457 Interpretive Statements Sinus tachycardia Poneto indeterminate Low QRS complex voltage in the limb leads Nonspecific ST-T wave abnormalities Compared to prior tracing of earlier this date, ectopy has resolved Electronically Signed On 11-20-2018 16:31:57 EDT by Cecil Tirado
[2018-11-20] MEDS ORDERED: traZODone 100 MG TAB PO SCH (21:00)
[2018-11-20 21:48] VITALS: BP 153/83
[2018-11-20] MEDS: MEROPENEM INJ 1 GM in APPROPRIATE DILUENT 1 EA IV SCH (21:49)
[2018-11-20 22:00] VITALS: BP 153/83
[2018-11-20] MEDS ORDERED: ONDANSETRON 4MG/2ML VIAL (J2405) IV PRN (22:15)
[2018-11-20] MEDS ORDERED: ACETAMINOPHEN 650 MG SUPP PR ONE (22:15)
[2018-11-20] MEDS ORDERED: ONDANSETRON 4MG/2ML VIAL (J2405) IV ONE (22:15)
[2018-11-20] MEDS ORDERED: THIAMINE HCL 200 MG/2 ML VIAL (J3411) IM ONE (23:00)
[2018-11-20] MEDS ORDERED: SILDENAFIL CITRATE 20 MG TABLET (REVATIO) PO ONE (23:00)
--- NOTE | 2018-11-20 23:33 | TRANSCARE ---
Transition of Care: Transition of Care Was called by nursing regarding patient temp 104.3F with an episode of brown color emesis. Rectal tylenol and IV zofran 8mg one time dose followed by Zofran 4mg PRN. ABG, d-dimer, mag level, and BMP ordered. Pt on levofloxacin and Meropenem IV. Slidenafil 10mg one time dose was initially ordered for pulm hyper tension but was canceled without being given. Went to the bedside to examine the patient patient appears to be mild-mod distress, A&O to name only with decreased alertness compared to yesterday. No more emesis reported. Pt initially required 2L NC to maintain in COPD ox sat goal 88-92%; has been requiring 10L NC since 11/20/18 morning, currently still saturating at 90%. It was noted as the patient's position was adjusted her pulse ox will go down to the 70%. PMH of RA on xeljanz, pt not very alert but answers yes right away when being asked if any joint pain. Discussed with attending and pt may require Bi-PAP thus transfer order to ICU was initially placed. Was notified that pt is under family medicine service thus a discussion with family medicine team provider was made. Per nursing kersey department supervisor, patient will be followed by family medicine team provider; Pt transferred to ICU. GME ATTESTATION GME ATTESTATION My faculty preceptor for this patient encounter was physically present during the encounter and was fully available. All aspects of the patient interview, examination, medical decision making process, and medical care plan development were reviewed and approved by the faculty preceptor. The faculty preceptor is aware and concurs with the plan as stated in the body of this note and will attest to such by his/her cosignature. NIEL LEVY DO November 20, 2018 23:33
[2018-11-20 23:41] LABS: CALCIUM LEVEL 9.4 MG/DL (8.8-10.2); CREATININE FOR GFR 1.78 MG/DL (0.55-1.30); GLOMERULAR FILTRATION RATE 29.3 (>39); MAGNESIUM LEVEL 1.8 MG/DL (1.8-2.4); POTASSIUM SERUM 4.5 MEQ/L (3.5-5.1)
[2018-11-20 23:48] VITALS: BP 100/56
[2018-11-21] VITALS (42 sets, daily range): BP systolic 53–149; BP diastolic 21–96
[2018-11-21] MEDS ORDERED: methylPREDNISolone INJ 125 MG/2 ML VIAL (J2930) IV SCH
[2018-11-21 00:29] LABS: ABG BASE EXCESS 7.1 (-2.0-2.0); ABG HCO3 34.4 MEQ/L (22.0-26.0); ABG O2 SATURATION 93.4 % (95.0-99.0); ABG PARTIAL PRESSURE O2 65.8 mmHg (75.0-100.0); ABG STANDARD HCO3 30.9 MEQ/L (22.0-26.0); ABG TOTAL CO2 36.2 MEQ/L (23.0-31.0); ABG pH (ARTERIAL) 7.371 UNITS (7.350-7.450)
[2018-11-21 00:30] LABS: ABG PARTIAL PRESSURE CO2 60.7 mmHg (35.0-45.0)
[2018-11-21] MEDS ORDERED: NS 1,000 ML IV ONE (00:45)
[2018-11-21] MEDS ORDERED: SODIUM CHLORIDE 0.9% 1000ML IV ONE (01:00)
[2018-11-21 01:05] LABS: HEMATOCRIT 41.2 % (36.0-47.0); HEMOGLOBIN 12.9 g/dl (12.0-15.5); MEAN CORPUSCULAR HEMOGLOBIN 33.2 pg (27.0-33.0); MEAN CORPUSCULAR HGB CONC 31.3 g/dl (32.0-36.5); MEAN CORPUSCULAR VOLUME 105.9 fl (80.0-96.0); RED BLOOD COUNT 3.89 10^6/uL (4.00-5.40)
[2018-11-21 01:21] LABS: WHITE BLOOD COUNT 0.7 10^3/uL (4.0-10.0)
--- NOTE | 2018-11-21 01:27 | IPNPDOC ---
Subjective Date Seen The patient was seen on 11/21/18. Subjective Chief Complaint/HPI dyspnea and debility Events since last encounter Respiratory status worsened late this morning, and CXR, ABG, cardiac enzymes, ordered. She declined intubation and Bipap, though after she became more ill at night, she states she would accept Bipap if necessary. Constitutional: Denies: Chills, Fever Skin: Reports: Breakdown (bilat LE) Pulmonary: Denies: Dyspnea, Cough Cardiovascular: Reports: Chest Pain (admitted some discomfort, then denied it) Gastrointestinal: Denies: Nausea, Vomiting, Diarrhea, Constipation Neurological: Denies: Change in speech Psych: Reports: Anxiety Objective Physical Examination General Exam: Positive: Alert, Cooperative, Mild Distress, Moderate Distress Eye Exam: Positive: Conjunctiva & lids normal ENT Exam: Positive: Atraumatic, Mucous membr. moist/pink Neck Exam: Positive: Supple Chest Exam: Positive: Rales (diffuse rales upon ausculatation), Other (accessory muscle use noted, improved with upright positioning); Negative: Normal air movement, Diminished Heart Exam: Positive: Tachycardic, Normal S1, Normal S2; Negative: Murmurs Abdomen Exam: Positive: Normal bowel sounds, Soft, Other (no guarding or distention) Extremity Exam: Positive: Normal pulses (bilateral radial pulse palpated), Other Skin Exam: Positive: Nl turgor and temperature, Breakdown (right anterior leg), Other skin issue (multiple ecchymosis in bilateral upperextremities. Venous stasis dermatitis in bilateral legs) Neuro Exam: Positive: Normal Speech Psych Exam: Positive: Mental status NL, Anxiety, Oriented x 3 A-FIB/CHADSVASC A-FIB History Current/History of A-Fib/PAF?: No Assessment /Plan Problems (1) Chronic respiratory failure with hypoxia and hypercapnia Status: Chronic Problem Text: 11/20: Patient developed worsening oxygen demands late this morning, requiring up to 10 L NC. Patient at that time refused intubation or Bipap, and remained on 5 Joseph with supplemental O2 titrated to keep her sats 88-92%. Breathing treatments and Solumedrol administered. Respiratory demands increased when she developed a fever tonight, and she was transferred to the ICU; Dr. Dumont was consulted, and we appreciate her assistance. Of note, while she does have known CAD and COPD, as well as suspected CORETTA, she has refused any evaluation for any of these conditions for years. Currently 88% on NC. PMH of COPD with worsening SOB since 2 months ago with productive cough. Echo to r/o pulm HTN ordered. Questionable cardiomegaly on CXR. Pt already received IV solumedrol and duoneb in ER. Oxygen therapy with albuterol PRN. Vital signs as scheduled (2) Sepsis Problem Text: Source felt to be pneumonia. She is immunosuppressed, and penicillin allergic; on meropenem and Levaquin. Fluid resuscitation ordered. She is DNR status and has been transferred to the ICU. (3) Debility Status: Chronic Problem Text: 11/20: Transferred to the hospital upon the insistence of her ; per nursing staff, family unable to care for her at home. Since she has developed a fever within hours of admission, her recent debility may just have been this illness brewing. Pt walks around at home with a walker. PT and OT consult. Consider m[facility] placement consult. (4) Hypokalemia Status: Acute Problem Text: K at 3.1. 40 meqKCL PO ordered; continue home med potassium sup plement. Mag level ordered. F/u with BMP tmrw. (5) Rheumatoid arteritis Status: Chronic Problem Text: Continue home med Xeljanz and prednisone PRN arthritis flare. Echo ordered to r/o pulm HTN. Cont to monitor the patient (6) Coronary artery disease with hx of myocardial infarct w/o hx of CABG Problem Text: Cont home med Atorvastatin and plavix. Cont to monitor the pt (7) CKD (chronic kidney disease), stage IV Problem Text: medical hx of CKD stage 4. GFR 26.7 today with creatinine no more than 1.5 times baseline; no NGUYỄN. Pt will be on renal diet. Cont to monitor the pt closely and f/u with BMP tmrw (8) Ulcerative colitis, chronic Problem Text: PMH of UC. Pt denies any hematochezia, melena, or diarrhea. Cont home med and cont to monitor the pt. (9) Diastolic heart failure Problem Text: 11/20: Echo performed in hospital with normal systolic (and likely diastolic) dysfunction, no significant valvular disease. Normal BNP. Planned to continue home diuretic, but patient is now hypotensive PMH of diastolic heart failure per outpt record. Cont home med Furosemide. Pt did have orthopnea but denies swelling of the extremities. Cont to monitor the pt; I&O. (10) Venous stasis dermatitis of both lower extremities Problem Text: Medical Hx of b/l lower extremity venous stasis disease. One ope jonatan wound on right anterior leg likely 2/2 venous stasis dermatitis. Wound care ordered. Cont to monitor the pt Plan/VTE VTE Prophylaxis Ordered?: Yes Plan Therapy: PT, OT Diagnostics: Check Labs, Repeat Labs in AM Anticipated Discharge: [facility], I&O, 24H, Fishbone Vital Signs/I&O Vital Signs Date Time Temp Pulse Resp B/P (MAP) Pulse Ox O2 Delivery O2 Flow Rate FiO2 11/20/18 23:00 103.5 11/20/18 22:00 98 28 153/83 (106) 89 10.0 11/19/18 23:09 Nasal Cannula I&O- Last 24 Hours up to 6 AM 11/21/18 06:00 Intake Total 680 ml Output Total 0 ml Balance 680 ml Laboratory Data 24H LABS Laboratory Tests 2 11/20/18 06:19: Magnesium Level 1.4L 11/20/18 12:59: Total Creatine Kinase 183#, Creatine Kinase MB 3.0, Creatine Kinase MB Relative Index 1.80, Troponin I < 0.02 11/20/18 13:40: Blood Gas Bicarbonate Standard 27.3H, Arterial Blood pH 7.347L, Arterial Blood Partial Pressure CO2 56.9H, Arterial Blood Partial Pressure O2 53.8L, Arterial Blood Total CO2 32.2H, Arterial Blood HCO3 30.5H, Arterial Blood Base Excess 3.4H, Arterial Blood Oxygen Saturation 87.7L 11/20/18 23:06: Magnesium Level 1.8, D-Dimer, Quantitative > 4000H, Anion Gap 5L, Glomerular Filtration Rate 29.3L, Blood Urea Nitrogen 39H, Creatinine 1.78H, Sodium Level 139, Potassium Level 4.5#, Chloride Level 99, Carbon Dioxide Level 35H, Calcium Level 9.4 11/21/18 00:20: Blood Gas Bicarbonate Standard 30.9H, Arterial Blood pH 7.371, Arterial Blood Partial Pressure CO2 60.7*H, Arterial Blood Partial Pressure O2 65.8L, Arterial Blood Total CO2 36.2H, Arterial Blood HCO3 34.4H, Arterial Blood Base Excess 7.1H, Arterial Blood Oxygen Saturation 93.4L 11/21/18 00:52: 11/21/18 00:56: CBC/BMP Laboratory Tests 11/20/18 23:06 Calcium Level 9.4 Microbiology Microbiology 11/20/18 Blood Culture - Preliminary, Resulted No growth after 24 hours . All specim... 11/20/18 Blood Culture - Preliminary, Resulted No growth after 24 hours . All specim... 11/20/18 Respiratory Virus Panel (PCR) ([facility]) - Final, Complete SUSHANT CORDOVA DO November 21, 2018 01:27
[2018-11-21 01:31] LABS: CALCIUM LEVEL 9.3 MG/DL (8.8-10.2); CREATININE FOR GFR 1.94 MG/DL (0.55-1.30); GLOMERULAR FILTRATION RATE 26.6 (>39); POTASSIUM SERUM 5.1 MEQ/L (3.5-5.1)
[2018-11-21] MEDS ORDERED: LIDOCAINE 1% MDV 20ML VIAL As Ordered ONE (01:43)
--- NOTE | 2018-11-21 01:49 | REPVR ---
EXAM: XR Chest, 1 View EXAM DATE/TIME: 11/21/2018 12:45 AM CLINICAL HISTORY: 78 years old, female; Signs and symptoms; Other: Desat TECHNIQUE: Imaging protocol: XR of the chest, 1 view. COMPARISON: CR PORTABLE CHEST X-RAY 11/20/2018 1:14 PM FINDINGS: Lungs: Persistent right base infiltrate. Slightly increased left infrahilar infiltrate or atelectasis. Pleural space: Slightly decreased right pleural effusion. Minimal left pleural effusion is unchanged. Heart/Mediastinum: The heart and mediastinum are unchanged. Bones/joints: Unremarkable. Soft tissues: Right neck and right infraclavicular surgical clips are again noted. IMPRESSION: 1. Slightly decreased right pleural effusion since 11/20/2018. 2. Slightly increased left infrahilar infiltrate or atelectasis. 3. Otherwise stable chest. Electronically signed by: Miquel Sierra On 11/21/2018 01:49:13 AM
[2018-11-21] MEDS ORDERED: NOREPINEPHRINE 4 MG/4 ML AMP As Ordered ONE (01:50)
[2018-11-21] MEDS: IPRATROPIUM 0.5MG/ALBUTEROL 2.5MG INH SOL UD 3ML (DUONEB)(J7620) NEB SCH ×2 (02:00→09:32)
[2018-11-21] MEDS ORDERED: LIDOCAINE 1% MDV 20ML VIAL SC ONE (02:30)
[2018-11-21] MEDS: NOREPINEPHRINE BITARTRATE 16 MG in D5W 484 ML IV SCH ×2 (02:30→14:06)
[2018-11-21] MEDS ORDERED: VASOPRESSIN INJ 20 UNITS/ML VIAL As Ordered ONE (02:39)
[2018-11-21] MEDS ORDERED: VASOPRESSIN INJ 40 UNITS in NS 499 ML IV SCH ×3 (02:45→03:03)
[2018-11-21 02:50] LABS: ABG BASE EXCESS 0.7 (-2.0-2.0); ABG HCO3 27.4 MEQ/L (22.0-26.0); ABG O2 SATURATION 97.5 % (95.0-99.0); ABG PARTIAL PRESSURE CO2 52.7 mmHg (35.0-45.0); ABG PARTIAL PRESSURE O2 99.7 mmHg (75.0-100.0); ABG STANDARD HCO3 25.1 MEQ/L (22.0-26.0); ABG pH (ARTERIAL) 7.334 UNITS (7.350-7.450)
[2018-11-21] MEDS ORDERED: VANCOMYCIN HCL 1,000 MG, VIAL MATE ADAPTER 1 EACH in D5W 250 ML IV ONE (03:00)
[2018-11-21 03:46] LABS: FREE T4 1.46 NG/DL (0.76-1.46); THYROID STIMULATING HORMONE 0.643 uIU/ML (0.358-3.740)
[2018-11-21] MEDS ORDERED: HYDROCORTISONE 100 MG/2 ML VIAL (J1720) As Ordered ONE (03:54)
[2018-11-21] MEDS ORDERED: ALBUTEROL 90 MCG/ACT 8GM HFA INHALER INH SCH (04:00)
--- NOTE | 2018-11-21 04:12 | REPVR ---
EXAM: US Duplex Bilateral Lower Extremity Veins EXAM DATE/TIME: 11/21/2018 4:00 AM CLINICAL HISTORY: 78 years old, female; Screening exam; Hypoxia TECHNIQUE: Imaging protocol: Real-time duplex ultrasound of the Bilateral Lower Extremities with 2-D dudley scale, color Doppler flow and spectral waveform analysis. Complete exam focused on the bilateral lower extremity veins. COMPARISON: US Duplex, Ext LOWER veins, bilat 09/22/2018 2:25 PM FINDINGS: Right deep veins: Unremarkable. The common femoral, femoral, proximal profunda femoral and popliteal veins are patent without thrombus. Normal Doppler waveforms. Normal compressibility and/or augmentation response. Right superficial veins: Saphenofemoral junction is patent without thrombus. Left deep veins: Unremarkable. The common femoral, femoral, proximal profunda femoral and popliteal veins are patent without thrombus. Normal Doppler waveforms. Normal compressibility and/or augmentation response. Left superficial veins: Saphenofemoral junction is patent without thrombus. Soft tissues: Unremarkable. IMPRESSION: Negative bilateral lower extremity venous duplex exam without evidence of deep venous thrombosis. Electronically signed by: Miquel Sierra On 11/21/2018 04:12:14 AM
[2018-11-21] MEDS ORDERED: NS 1,000 ML IV SCH (05:15)
--- NOTE | 2018-11-21 05:40 | PHACANCOPD ---
PHARMACY VANCOMYCIN DOSING Pt Demographics Demographics Patient Age:78 , Weight:73.700 , Gender: female Adjusted Body Weight Date: 11/21/18, Adjusted Body Weight: [60.9] Kg Vancomycin Vancomycin indication: SEPSIS Vancomycin Target Ranges: 15-20 mcg/ml Vancomycin Load Y/N: No Load Dose Date Time Vancomycin Load Dose: Date: Time: Vancomycin Dose Date: 11/21/18. Current Vancomycin Dose: [750MG Q24H] Intermittent Dosing?: No Labs Labs Laboratory Tests 11/20/18 23:06 Calcium Level 9.4 11/21/18 00:52 Calcium Level 9.3 11/21/18 00:56 Red Blood Count 3.89 L, Mean Corpuscular Volume 105.9 H, Mean Corpuscular Hemoglobin 33.2 H, Mean Corpuscular Hemoglobin Concent 31.3 L, Red Cell Distribution Width 14.9 H Micro Microbiology 11/21/18 Blood Culture, Received Pending 11/20/18 Blood Culture - Preliminary, Resulted No growth after 24 hours . All specim... 11/20/18 Blood Culture - Preliminary, Resulted No growth after 24 hours . All specim... 11/20/18 Respiratory Virus Panel (PCR) ([facility]) - Final, Complete Creatinine Clearance Date:11/21/18. Creatinine Clearance: [23].CALCULATED Assessment and Plan Maintaining Current Dose?: Yes Reason for dose change: No Dose Change Pharmacist Note Pharmacist Note Date: 11/21/18. Pharmacist note:Patient(78 YOF)was PCU patient on levaquin and Meropenem-had decrease in respiratory status-moved to ICU with Vancomycin per Pharmacy dosing added.(sepsis trough goal =15-20).Received Vancomycin 1 gram 11/21@0330.Will begin Regimen of 750mg Q24 today@1999.First trough is scheduled 11/22 @1900(prior to the 3rd dose)-will continue to follow labs and adjust Vancomycin dose/schedule as needed. [facility] November 21, 2018 05:40
[2018-11-21] MEDS: LEVOTHYROXINE 50MCG TABLET (0.05MG) PO SCH (06:00)
[2018-11-21] MEDS ORDERED: HYDROCORTISONE 100 MG/2 ML VIAL (J1720) IV SCH (06:00)
[2018-11-21] MEDS: HEPARIN SOD (PORCINE) 5000 UNITS/ML VIAL SQ SCH ×2 (06:10→14:07)
[2018-11-21 06:52] LABS: HEMATOCRIT 42.1 % (36.0-47.0); HEMOGLOBIN 12.9 g/dl (12.0-15.5); MEAN CORPUSCULAR HEMOGLOBIN 32.5 pg (27.0-33.0); MEAN CORPUSCULAR HGB CONC 30.6 g/dl (32.0-36.5); PLATELET COUNT, AUTOMATED 182 10^3/uL (150-450); RED BLOOD COUNT 3.97 10^6/uL (4.00-5.40)
[2018-11-21 07:00] LABS: WHITE BLOOD COUNT 1.2 10^3/uL (4.0-10.0)
[2018-11-21 07:08] LABS: CALCIUM LEVEL 8.7 MG/DL (8.8-10.2); CREATININE FOR GFR 2.05 MG/DL (0.55-1.30); GLOMERULAR FILTRATION RATE 24.9 (>39); POTASSIUM SERUM 4.9 MEQ/L (3.5-5.1)
[2018-11-21 07:14] LABS: ALBUMIN 2.6 GM/DL (3.2-5.2); BILIRUBIN,DIRECT 0.9 MG/DL (0.0-0.2); BILIRUBIN,TOTAL 1.5 MG/DL (0.2-1.0); TOTAL PROTEIN 6.6 GM/DL (6.4-8.2)
[2018-11-21] MEDS: MAGNESIUM OXIDE 400 MG TAB (MAG-OX) PO SCH (09:22)
[2018-11-21] MEDS: MULTIVITAMINS/MINERALS THERAP 1 TAB PO SCH (09:22)
[2018-11-21] MEDS: busPIRone 5 MG TAB PO SCH (09:22)
[2018-11-21] MEDS: POTASSIUM CHLORIDE 10 MEQ SR TABLET PO SCH (09:22)
[2018-11-21] MEDS: ALLOPURINOL 300 MG TAB PO SCH (09:22)
[2018-11-21] MEDS: ATORVASTATIN 20 MG TAB PO SCH (09:22)
--- NOTE | 2018-11-21 09:41 | RO ---
DATE OF PROCEDURE: 11/21/2018 INDICATION: Vasopressor administration. PREPROCEDURE DIAGNOSIS: Septic shock. POSTPROCEDURE DIAGNOSIS: Septic shock. ATTENDING PHYSICIAN: Dr. Candi Dumont Consent was obtained from the patient prior to procedure. Indication, risks and benefits were explained at length. PROCEDURE SUMMARY: A central line insertion practices form was completed by independent observer starting with the first hand wash prior to starting sterile technique. A time-out was performed prior to the procedure. Full sterile technique was maintained throughout the procedure including surgical cap, mask with protective eye wear, full gown and sterile gloves. The patient was placed in Trendelenburg position. The left neck region was prepped using chlorhexidine scrub and draped in the sterile fashion using a fenestrated drape and a sterile ultrasound probe cover was employed. The left internal jugular vein was identified using ultrasound. Anesthesia was achieved using 1% lidocaine. Using real time guidance, the introducer needle was inserted into the left internal jugular vein under direct ultrasound visualization. Venous blood was drawn. The syringe was removed and the guidewire was advanced into the introducer needle. The guidewire was visualized in the internal jugular vein by ultrasound. The needle was removed over the guidewire and a small incision was made at the skin surface with a scalpel and a dilator was exchanged over the guidewire. After appropriate dilation was obtained, the dilator was exchanged over the wire for a triple lumen central venous catheter. The wire was removed and a catheter was sutured in place at 20 cm. Sterile chlorhexidine impregnated dressing was placed over the catheter at the insertion site. The patient tolerated the procedure well. At time of procedure completion, all ports aspirated and flushed properly. Postprocedure chest x-ray shows the left IJ in place with the tip in SVC. Estimated blood loss was less than 5 mL. MTDD
[2018-11-21] MEDS ORDERED: ACETAMINOPHEN 650 MG SUPP PR PRN (10:00)
[2018-11-21] MEDS: MEROPENEM INJ 1 GM in APPROPRIATE DILUENT 1 EA IV SCH (10:10)
[2018-11-21] MEDS ORDERED: LORazepam 2 MG/ML VIAL (J2060) IV STA (10:20)
--- NOTE | 2018-11-21 10:35 | REP ---
PORTABLE CHEST: AP portable view of the chest is performed and compared to a prior study of 09/14/2018. There is mild cardiomegaly. Metallic clips are again seen overlying the right apex. Mild linear fibroatelectatic change in each lung base is stable with no evidence of acute infiltrate. There are degenerative changes of the spine. Metallic clips are also seen in the left neck soft tissues. IMPRESSION: Cardiomegaly. No evidence of acute infiltrate. Electronically Signed by Karel Youssef MD 11/21/2018 11:37 A
--- NOTE | 2018-11-21 11:25 | CR ---
DATE OF CONSULTATION: 11/21/2018 The patient is a 78-year-old female with a past medical history of coronary artery disease with a history of myocardial infarction in 1998, refusing further stress testing, chronic kidney disease, carotid artery disease status post CEA bilaterally, hypertension, hyperlipidemia, rheumatoid arthritis, ulcerative colitis on immune modulating medication, chronic obstructive pulmonary disease (COPD), gout, peripheral vascular disease status post recent toe amputation who presented with complaints of worsening shortness of breath and cough for the past few weeks. The patient reported that she had shortness of breath for the past month or two and in the past few weeks had noted cough productive of sputum, was not able to describe sputum to me at the time. She had denied any fevers or chills as an outpatient; however, had a fever in the hospital after she was admitted. She denied noticing any chest pain or increasing lower extremity edema. She does report a prior history of COPD and she is on albuterol inhaler; however, has never followup with a financial business analyst in the past. She also is not following with her flask maker. Initially, on admission, the patient was not febrile, was noted to be tachycardic, but blood pressure was stable. The patient was initially given IV Solu-Medrol and a DuoNeb treatment and was noted to be hypoxemic on nasal cannula. She was admitted and during the day was noted to have worsening hypoxemia requiring increasing oxygen requirements. She was up to 10 liters of nasal cannula and saturating in the high 80s. She also was noted to have a temperature of 104.3 late in the evening and an episode of brown colored emesis. She was given Zofran and Tylenol and was started on IV antibiotics with meropenem and Levaquin. Sildenafil 10 mg one time was initially ordered for pulmonary hypertension but was cancelled. She also appeared to be more lethargic and is able to converse appropriately but drowsy and falling asleep during conversation. She was transferred to the intensive care unit (ICU). Once in the ICU, the patient was noted to be tachycardic and became hypotensive with systolic pressures in the 50s or 60s over palpable. She was given 1 liter normal saline bolus with minimal improvement in her blood pressure and so the patient was consented for a left IJ central venous catheter and started on Levophed for blood pressure support. PAST MEDICAL HISTORY: 1. Hypertension. 2. Coronary artery disease status post myocardial infarction in 1998. 3. Peripheral arterial disease and carotid arterial disease status post right carotid endarterectomy in 1998 and a left carotid endarterectomy in 2001. 4. Chronic kidney disease. 5. Ulcerative colitis. 6. Gout. 7. Rheumatoid arthritis. 8. Chronic obstructive pulmonary disease (COPD). 9. Venous stasis disease. PAST SURGICAL HISTORY: 1. BERNARD/BSO. 2. Bilateral hip replacement. 3. Bilateral carotid endarterectomy. 4. Bilateral cataract surgery. 5. Right breast biopsy. 6. Left ankle open reduction, internal fixation (ORIF). 7. Cholecystectomy. 8. Appendectomy. 9. Right third toe amputation in September 2017. FAMILY HISTORY: Significant for a history of heart disease. SOCIAL HISTORY: The patient is a former smoker with about a pack a day, could not quantify the amount of years but quit more than 20 years ago. Denies any alcohol use or other IV drug. HOME MEDICATIONS: - allopurinol - atorvastatin - BuSpar - calcium and vitamin D - Plavix - furosemide 40 mg - levothyroxine 50 mcg - magnesium oxide - mesalamine - metoprolol 12.5 mg twice a day - multivitamin - potassium chloride - trazodone - DuoNeb 200 mg at night - Percocet as needed - prednisone 1 mg as needed ALLERGIES: PENICILLIN, CLINDAMYCIN, CODEINE, MORPHINE. PHYSICAL EXAMINATION: Maximum temperature (t-max) 104.3, heart rate 113, respiratory rate 24, blood pressure was 60s over 40s, oxygen saturation 88% on Vapotherm at 75% FIO2 and 30 liters per minute. GENERAL: The patient is an elderly female who is sitting in bed somewhat lethargic but able to answer questions appropriately. She is able to speak in full sentences, is in mild respiratory distress. HEENT: She is normocephalic, atraumatic. Dry mucous membranes. Neck is supple. Unable to appreciate any jugular venous distention (JVD). There is no palpable adenopathy. Cardiovascular: Tachycardic. Regular rate and rhythm. Normal S1, S2. Unable to appreciate any murmurs. Respiratory: Diminished breath sounds bilaterally with more decreased breath sounds at the bases and some crackles and rhonchi. Abdomen: Obese, soft, nontender and nondistended. Bowel sounds are present. Extremities: No lower extremity edema noted. There is significant ecchymosis and some skin breakdown in her lower extremities and in her upper extremities as well. She has a stage II sacral decubitus also. LABORATORY DATA: WBC 0.7, hemoglobin 12.9, platelets were unable to be determined as they were clumped. Chemistry: Sodium 139, potassium 5.1, chloride 100, bicarbonate 35, BUN 40, creatinine 1.94, glucose 135, lactic acid 2.6. ABG 7.371, pCO2 of 60.7, pO2 of 65.8. Microbiology: Respiratory virus panel was negative. Blood cultures from 11/20/2018 showed no growth to date. IMAGING STUDIES: Chest x-ray showed a right base infiltrate and a left infrahilar infiltrate as well. There is trace right pleural effusion and a trace left pleural effusion as well. Echocardiogram showed normal left ventricular size and likely normal diastolic dysfunction with a normal ejection fraction. There was evidence of mild pulmonary hypertension and mildly elevated central venous pressures with no significant valvular disease. ASSESSMENT AND PLAN: Ms. Crooks is a 78-year-old female with a past medical history of coronary artery disease, peripheral arterial disease, rheumatoid arthritis and ulcerative colitis on immunosuppressive medication, chronic kidney disease, his history reportedly of diastolic congestive heart failure (CHF), who presented with increasing shortness of breath and cough for the past few weeks. The patient was found to be hypoxic and requiring nasal cannula oxygen supplementation. Her initial ABG showed evidence of chronic hypercarbic respiratory failure and she has a history of possible sleep apnea and had declined workup in the past. She also has a history of COPD, unclear the severity of it, has never followed up with a financial business analyst in the past. Overnight the patient was noted to have worsening of her hypoxemic respiratory failure requiring increasing oxygen supplementation. She also had a fever of 104.3, and the patient was transferred to the intensive care unit (ICU) and started on Vapotherm for high flow oxygen. The patient was also noted to be hypotensive and was given 1 liter normal saline bolus with minimal response in her blood pressure and had a central line placed and was started on Levophed for blood pressure support. The patient was not given further liters as she had evidence of elevated central venous pressures on ultrasound of her IVC. Chest x-ray showed some mild pulmonary congestion. The patient was on high doses of Levophed and still hypotensive and so was started on vasopressin for an additional pressor. Neurology, the patient is on BuSpar for a history of anxiety. Can continue the medication for now. The patient is drowsy but is still awake and answering commands and questions appropriately. We will continue to monitor her mental status. Would discontinue trazodone and can continue with as needed pain medications if needed. Cardiovascular, history of coronary artery disease and peripheral arterial disease. Reported history of diastolic congestive heart failure (CHF) and history of hypertension. The patient now with shock, likely secondary to sepsis, requiring vasopressor support. Continue with Levophed and vasopressin and titrate for a MAP above 65. The patient had an echocardiogram which did not show any significant right ventricle dilation or right-sided heart failure. There was mild pulmonary hypertension noted, which is likely due to history of undiagnosed obstructive sleep apnea. Her ejection fraction was preserved and there was no significant valvular disease noted. - Continue to trend her lactate. - will start hydrocortisone for stress dose steroids for possible adrenal insufficiency. - Would also check lower extremity duplex as deep vein thrombosis (DVT) and pulmonary embolus is potentially in the differential given her hypoxemia and hypotension, although her echo did not show any evidence of right-sided heart failure, which would go along with a PE large enough to cause shock. If the duplex is negative, would consider repeat echocardiogram. - Hold her antihypertensive medications and her Lasix. Pulmonary/infectious disease: History of chronic obstructive pulmonary disease (COPD) with acute hypoxemic respiratory failure and chronic hypercarbic respiratory failure. ABG shows appropriate compensation for her chronic hypercarbic respiratory failure. The patient was placed on Vapotherm for the hypoxemic respiratory failure. She also does appear to have some difficulty with clearing her secretions. We will continue to monitor her ABG. If there are signs of worsening hypercarbia or increasing work of breathing, would place her on BiPap then. If we are unable to maintain her oxygenation with Vapotherm, would also place her on BiPAP, we will titrate to maintain oxygen sat of 88-92%. - will followup with repeat ABGs on the Vapotherm. The patient initially was not agreeable to noninvasive positive pressure ventilation but she is agreeable now. She is a DO NOT INTUBATE and DO NOT RESUSCITATE. - Chest x-ray shows bilateral infiltrates in the bases and some small trace effusions. She was on meropenem and Levaquin. We will add vancomycin given her recent hospitalization and surgical procedure. - will start DuoNeb every 6 hours. - The patient is on hydrocortisone for stress dose steroids. We will treat for 24 to 48 hours and then switch to Solu-Medrol. - will repeat blood cultures as she had spiked a new fever. We will also check the UA for her infectious workup. - The patient's septic shock is most likely due to pneumonia given her x-ray and complaints. She is also on immunosuppressive medication therefore will also check Fungitell and Aspergillus galactomannans for possible fungal pneumonia. - Would also get a sputum to rule out PCP given her hypoxemia and immunosuppressed state and check regular sputum culture Renal: History of chronic kidney disease. The patient with worsening of her chronic renal failure likely in the setting of her shock. We will continue to monitor her renal function and continue to monitor her urine output. She does appear to be making urine still at this time. We will continue to monitor her electrolytes and replete as needed. Gastrointestinal: The patient denies any abdominal complaints currently. She does have a history of ulcerative colitis, did not have any blood in her stool reportedly. will check liver function tests and continue to monitor her symptoms. Zofran as needed for nausea. Continue with IV fluid hydration with normal saline at 100 mL an hour. will make patient nothing by mouth for now. Hematologic: Patient with leukopenia likely in the setting of severe sepsis. Can also be a side effect of her rheumatologic / ulcerative colitis medication. We will hold off on her immunosuppressive medications and continue to monitor her white count. will discontinue her Plavix, she does not have any history of recent stenting and she may need procedures while admitted. will start deep vein thrombosis (DVT) prophylaxis with heparin. CODE STATUS: DO NOT RESUSCITATE, DO NOT INTUBATE. Total critical care time spent, not including any procedures, approximately 2 hours and 30 minutes. MTDD
[2018-11-21] MEDS ORDERED: LORazepam 2 MG/ML VIAL (J2060) IV PRN (11:30)
[2018-11-21] MEDS ORDERED: fentaNYL 100 MCG/2 ML INJECTION (J3010) IV PRN (11:30)
[2018-11-21] MEDS ORDERED: SCOPOLAMINE 1MG TRANSDERMAL PATCH TOP SCH (12:00)
--- NOTE | 2018-11-21 12:10 | REP ---
CHEST, PORTABLE: AP portable view of the chest is performed and compared to prior exam of the same day. There has been placement of a left central venous catheter. The tip is in the superior vena cava. There is no pneumothorax. There is slight increase in bibasilar consolidative opacity. I cannot exclude underlying pleural fluid. Heart and mediastinum are unchanged. Electronically Signed by Karel Youssef MD 11/21/2018 12:30 P
[2018-11-21] MEDS ORDERED: VANCOMYCIN HCL 750 MG, VIAL MATE ADAPTER 1 EACH in D5W 250 ML IV SCH (20:00)
--- NOTE | 2018-11-21 20:56 | ECGEPIP ---
Stationary ECG Study [facility] - ED Test Date: 2018-11-20 Pat Name: LILIBETH MELLO Department: Room: [place] [address] Gender: F Barrel Header: stef : 1940 Requested By: OMNET Ulloa Order Number: [id number] Reading MD: Cindy Polanco Measurements Intervals [place] Rate: 123 P: 52 W[place]: 169 QRS: 69 QRSD: 82 T: 59 QT: 396 QTc: 568 Interpretive Statements SINUS TACHYCARDIA WITH OCCASIONAL VENTRICULAR PREMATURE COMPLEXES INDETERMINATE AXIS ABNORMAL RHYTHM ECG LOW VOLTAGE LIMB NSTTW ABNORMALITY INCREASED RATE 09/14/18 Electronically Signed On 11-21-2018 20:56:46 EDT by Cindy Polanco
[2018-11-22] MEDS ORDERED: LevoFLOXacin IV 250 MG in APPROPRIATE DILUENT 1 EA IV SCH (15:00)
[2018-11-27 00:06] LABS: ASPERGILLUS GALACTOMANNAN AG 0.03 Index (0.00-0.49)
== END 2018-11-21 16:45 | disposition expired | DRG 871 ==
LOC: M ED 22:54 → EDBD 22:54 → M ED INP 22:55 → M MS5PR 11-20 05:10 → M ICU 11-20 23:43 → OBSVTOIN 11-21 13:04
PROVIDERS: ADMIT Internal Medicine; ATTEND Family Medicine
PROC: 02HV33Z Insertion of Infusion Device into Superior Vena Cava, Percutaneous Approach (ICD-10-PCS; principal; 2018-11-21)
DX: A41.9 Sepsis, unspecified organism (principal); J18.9 Pneumonia, unspecified organism; R65.21 Severe sepsis with septic shock; J96.21 Acute and chronic respiratory failure with hypoxia; N18.4 Chronic kidney disease, stage 4 (severe); I13.0 Hypertensive heart and chronic kidney disease with heart failure and stage 1 through stage 4 chronic kidney disease, or unspecified chronic kidney disease; I50.32 Chronic diastolic (congestive) heart failure; K51.90 Ulcerative colitis, unspecified, without complications; J96.12 Chronic respiratory failure with hypercapnia; Z66 Do not resuscitate; I25.10 Atherosclerotic heart disease of native coronary artery without angina pectoris; M06.9 Rheumatoid arthritis, unspecified; I87.2 Venous insufficiency (chronic) (peripheral); I25.2 Old myocardial infarction; F41.9 Anxiety disorder, unspecified; L89.152 Pressure ulcer of sacral region, stage 2; M10.9 Gout, unspecified; R73.01 Impaired fasting glucose; G47.33 Obstructive sleep apnea (adult) (pediatric); E87.6 Hypokalemia; E66.9 Obesity, unspecified; Z96.643 Presence of artificial hip joint, bilateral; Z98.41 Cataract extraction status, right eye; Z98.42 Cataract extraction status, left eye; Z89.421 Acquired absence of other right toe(s); Z90.49 Acquired absence of other specified parts of digestive tract; Z87.891 Personal history of nicotine dependence; Z79.02 Long term (current) use of antithrombotics/antiplatelets; Z79.899 Other long term (current) drug therapy; Z88.1 Allergy status to other antibiotic agents; Z88.5 Allergy status to narcotic agent; Z88.0 Allergy status to penicillin; Z68.31 Body mass index [BMI] 31.0-31.9, adult